=== PATIENT | male | born 1995 | race Caucasian/White ===

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

== ENCOUNTER 2017-01-26 00:01 | Emergency (ER) | payer MEDICAID, OTHER ==
[2017-01-26 04:45] LABS: ABSOLUTE BASOPHILS # (AUTO) 0.1 10^3/uL (0.0-0.2); ABSOLUTE EOSINOPHILS # (AUTO) 0.3 10^3/uL (0.0-0.6); ABSOLUTE LYMPHOCYTES (AUTO) 2.7 10^3/uL (0.5-4.7); ABSOLUTE MONOCYTES (AUTO) 0.9 10^3/uL (0.1-1.4); ABSOLUTE NEUT (AUTO) 5.7 10^3/uL (1.7-8.2); BASOPHILS % (AUTO) 1.1 % (0-2); EOSINOPHILS % (AUTO) 3.3 % (0-6); HEMATOCRIT 45.3 % (37.9-51.0); HEMOGLOBIN 15.3 g/dL (13.5-17.0); HGB HCT DIFFERENCE 0.6; LYMPHOCYTES % (AUTO) 27.9 % (13-45); MEAN CORPUSCULAR HEMOGLOBIN 31.2 pg (27.0-33.4); MEAN CORPUSCULAR HGB CONC 33.7 g/dL (32.0-36.0); MEAN CORPUSCULAR VOLUME 93 fl (80-97); RED BLOOD COUNT 4.89 10^6/uL (4.35-5.55); RED CELL DISTRIBUTION WIDTH 13.3 % (11.5-14.0); SEGMENTED NEUTROPHILS % (AUTO) 58.7 % (42-78); WHITE BLOOD COUNT 9.6 10^3/uL (4.0-10.5)
[2017-01-26 05:00] LABS: ALANINE AMINOTRANSFERASE 31 U/L (10-40); ALBUMIN 4.5 g/dL (3.7-5.6); ALKALINE PHOSPHATASE 82 U/L (65-260); ANION GAP 9 (5-19); ASPARTATE AMINO TRANSFERASE 32 U/L (10-45); BILIRUBIN,DIRECT 0.3 mg/dL (0.0-0.4); BILIRUBIN,TOTAL 0.7 mg/dL (0.2-1.3); BLOOD UREA NITROGEN 15 mg/dL (7-20); CALCIUM 9.4 mg/dL (8.4-10.2); CARBON DIOXIDE 27 mmol/L (22-30); CHLORIDE 104 mmol/L (98-107); CREATININE RESULT 0.99 mg/dL (0.52-1.25); GLUCOSE 90 mg/dL (75-110); POTASSIUM 4.2 mmol/L (3.6-5.0); SODIUM 139.7 mmol/L (137-145); TOTAL PROTEIN 7.5 g/dL (6.3-8.2)
[2017-01-26 05:02] LABS: ALCOHOL < 10 mg/dL (NONE DETECTED)
--- NOTE | 2017-01-26 07:08 | ER Document Report ---
ED General - General Chief Complaint: Psych Problem Stated Complaint: PSYCH EVAL Time Seen by Provider: 01/26/17 03:55 Notes: Patient is a 21-year-old male who presents with complaint of having hallucinations. He says he has daily hallucinations at baseline that consists of seeing for areas of bright lights. He said today he started having hallucinations of dark shadows and very "scary" things coming at him. He is concerned and wants help. He says he has been taking his medications as prescribed. He has no thoughts of suicide. No thoughts of homicide. No other complaints at this time. TRAVEL OUTSIDE OF THE [place] IN LAST 30 DAYS: No - Related Data Allergies/Adverse Reactions: No Known Allergies Allergy (Verified 12/22/16 21:02) Home Medications: Current Home Medications Aripiprazole [Aripiprazole] 1 tab PO BID 01/26/17 [History] Ranitidine HCl 1 tab PO QAM 01/26/17 [History] Past Medical History - Social History Smoking Status: Unknown if Ever Smoked Frequency of alcohol use: None Drug Abuse: None Family History: Other - Mother with multiple sclerosis Patient has suicidal ideation: No Patient has homicidal ideation: No Neurological Medical History: Reports: Hx Seizures Renal/ Medical History: Denies: Hx Peritoneal Dialysis Psychiatric Medical History: Reports: Hx Anxiety, Hx Attention Deficit Hyperactivity Disorder, Hx Bipolar Disorder, Hx Depression, Hx Obsessive Compulsive Disorder, Hx Post Traumatic Stress Disorder Traumatic Medical History: Reports: Hx Fractures Past Surgical History: Reports: Hx Herniorrhaphy - Immunizations Immunizations up to date: Yes Hx Diphtheria, Pertussis, Tetanus Vaccination: Yes Review of Systems - Review of Systems Notes: My Normal Review Basic REVIEW OF SYSTEMS: CONSTITUTIONAL : Denies fever, chills, or sweats. Denies recent illness. EENT: Denies eye, ear, throat, or mouth pain or symptoms. Denies nasal or sinus congestion. RESPIRATORY: Denies cough, cold, or chest congestion. Denies shortness of breath, difficulty breathing, or wheezing. GASTROINTESTINAL: Denies abdominal pain. Denies nausea, vomiting, or diarrhea. Denies constipation. Last BM: MUSCULOSKELETAL: Denies neck or back pain or joint pain or swelling. SKIN: Denies rash or skin lesions. NEUROLOGICAL: Denies altered mental status or loss of consciousness. Denies headache. Denies weakness or paralysis or loss of use of either side. Denies problems with gait or speech. Denies sensory or motor loss. PSYCHIATRIC: Hallucinations ALL OTHER SYSTEMS REVIEWED AND NEGATIVE. Physical Exam - Vital signs Vitals: Temp Pulse Resp BP Pulse Ox 98.4 F 90 18 115/78 96 01/26/17 00:14 01/26/17 00:14 01/26/17 00:14 01/26/17 00:14 01/26/17 00:14 - Notes Notes: General Appearance: Well nourished, alert, cooperative, no acute distress, no obvious discomfort. Well appearing. Vitals: reviewed, See vital signs table. Head: no swelling or tenderness to the head Eyes: PERRL, EOMI, Conjuctiva clear Mouth: No decreasd moisture Neck: Supple, no neck tenderness, No thyromegaly Lungs: No wheezing, No rales, No rhonci, No accessory muscle use, good air exchange bilaterally. Heart: Normal rate, Regular rythm, No murmur, no rub Abdomen: Normal BS, soft, No rigidity, No abdominal tenderness, No guarding, no rebound, no abdominal masses, no organomegaly Extremities: strength 5/5 in all extremities, good pulses in all extremities, no swelling or tenderness in the extremities, no edema. Skin: warm, dry, appropriate color, no rash Neuro: speech clear, oriented x 3, normal affect, responds appropriately to questions. Course - Vital Signs Vital signs: Temp Pulse Resp BP Pulse Ox 98.1 F 85 14 92/52 L 97 01/26/17 06:10 01/26/17 06:10 01/26/17 06:10 01/26/17 06:10 01/26/17 06:10 - Laboratory Result Diagrams: 01/26/17 04:31 01/26/17 04:31 Laboratory results interpreted by me: 01/26/17 01/26/17 04:31 04:31 Plt Count 134 L Salicylates < 1.0 L Acetaminophen < 10 L - Transfer of Care Notes: 01/26/17 07:07 Patient requested to speak with psychiatry about his worsening hallucinations. He is not on involuntary commitment paperwork for it. He is not suicidal. Not homicidal. I do not feel the patient be held against his will. Patient is voluntary at this time speak with psychiatry. Patient is medically stable for psychiatric evaluation. Dictation of this chart was performed using voice recognition software; therefore, there may be some unintended grammatical errors.
[2017-01-26 09:11] LABS: APPEARANCE,URINE CLEAR; BILIRUBIN,URINE NEGATIVE (NEGATIVE); GLUCOSE, URINE NEGATIVE (NEGATIVE); KETONES,URINE NEGATIVE (NEGATIVE); LEUKOCYTE ESTERASE,URINE NEGATIVE (NEGATIVE); NITRITE,URINE NEGATIVE (NEGATIVE); PROTEIN,URINE NEGATIVE (NEGATIVE); URINE SPECIFIC GRAVITY 1.032
[2017-01-26 09:27] LABS: URINE BARBITURATES SCREEN NEGATIVE; URINE METHADONE SCREEN NEGATIVE; URINE OPIATES LOW NEGATIVE; URINE PHENCYCLIDINE SCREEN NEGATIVE
--- NOTE | 2017-01-26 10:22 | ER Document Report ---
ED Psych Disorder / Suicide - General Chief Complaint: Psych Problem Stated Complaint: PSYCH EVAL Time Seen by Provider: 01/26/17 09:35 Mode of Arrival: Ambulatory Information source: Patient, [facility] Records TRAVEL OUTSIDE OF THE [place] IN LAST 30 DAYS: No - HPI Patient complains to provider of: Hallucinating - Feels the hallucinations are worse-more scary in nature Onset: Other - Last few weeks Onset was: Gradual Quality of pain: No pain Severity: Mild Pain Level: Denies Suicide Risk Factors: Hallucinations, Male, No spouse, Other mental health dx. - Schizoaffective disorder, Bipolar Type Normal mood: Yes Associated symptoms: Normal affect, Normal mood, Auditory hallucinations - Reported, Visual hallucinations - Reported Similar symptoms previously: Yes Recently seen / treated by doctor: Yes - ELIZABETH Fu, [facility] Notes: Patient reported his hallucinations were more vivid last evening, tending to scare him. He denied having a conversation with his Provider, Ena Schmidt, regarding his symptoms. Patient reported the abilify he is taking helps with decreasing the frequency of the hallucinations but not the intensity. He also reported he has an appointment next week with Ena and the Patient is supposed to start the IM Abilify shot. Patient stated he is living with a roommate but his roommate was not home so he was unable to him for support last night and he does not feel he can call his parents for support. Patient was provided with education regarding utilizing community resources for support including mobile crisis rather than the ED as his first option. Also provided education as to the importance of talking with his provider about his frustration regarding his Provider not listening to his complaints or taking him seriously when he comes for appointments. Had patient practice how he could talk with his provider before ending the evaluation. Patient was alert and oriented to person, place, time, and situation. Mood was euthymic with congruent affect. He denied suicidal / homicidal ideation, intent , or plan. He endorse auditory and visual hallucinations intermittently but not during the evaluations. No delusions were noted. Thought processes were linear and organized. Conversational speech was within normal limits for rate, tone, and prosody. Intellectual abilities were estimated within the low average range. Recent and remote memory appeared intact. Attention and concentration was within normal limits and there was no evidence he was responding to internal stimuli as evidenced by good eye contact, linear and rational thought processes, and attention to task. Insight, attention, and impulse control remain poor. 1. [id number] (F25.0) Schizoaffective Disorder, Bipolar Type Impression / Plan: Patient is here is voluntarily and denies suicidal / homicidal ideation, intent, or plan. He reports experiencing an increase in the intensity of his hallucinations last evening but a decrease in the frequency all together. He was reminded to utilize community supports for periods like this and to have a conversation with his provider about his symptoms. Encouraged him to focus on the positive regarding the decrease in frequency of symptoms and the effectiveness of his medications. Utilized role play regarding having a conversation with his provider about his frustrations with feeling as though his Provider does not listen to his complaints regarding mental healths symptoms. Patient was cooperative and appeared to understand the need to utilize mobile crisis or other community supports as a first line of defense when experiencing his symptoms. He reportedly is compliant with his current medication regiment. Patient is scheduled with his provider next week ([facility]). Recommend discharge for follow up with provider. ED Physician in agreement with recommendations and disposition. - Related Data Allergies/Adverse Reactions: No Known Allergies Allergy (Verified 12/22/16 21:02) Home Medications: Current Home Medications Aripiprazole [Aripiprazole] 1 tab PO BID 01/26/17 [History] Ranitidine HCl 1 tab PO QAM 01/26/17 [History] Past Medical History - Social History Smoking Status: Unknown if Ever Smoked Chew tobacco use (# tins/day): No Frequency of alcohol use: None Drug Abuse: None Family History: Other - Mother with multiple sclerosis Patient has suicidal ideation: No Patient has homicidal ideation: No Neurological Medical History: Reports: Hx Seizures Renal/ Medical History: Denies: Hx Peritoneal Dialysis Psychiatric Medical History: Reports: Hx Anxiety, Hx Attention Deficit Hyperactivity Disorder, Hx Bipolar Disorder, Hx Depression, Hx Obsessive Compulsive Disorder, Hx Post Traumatic Stress Disorder Traumatic Medical History: Reports: Hx Fractures Past Surgical History: Reports: Hx Herniorrhaphy - Immunizations Immunizations up to date: Yes Hx Diphtheria, Pertussis, Tetanus Vaccination: Yes Physical Exam - Vital signs Vitals: Temp Pulse Resp BP Pulse Ox 98.4 F 90 18 115/78 96 01/26/17 00:14 01/26/17 00:14 01/26/17 00:14 01/26/17 00:14 01/26/17 00:14 Course - Vital Signs Vital signs: Temp Pulse Resp BP Pulse Ox 98.1 F 85 14 92/52 L 97 01/26/17 06:10 01/26/17 06:10 01/26/17 06:10 01/26/17 06:10 01/26/17 06:10 - Laboratory Result Diagrams: 01/26/17 04:31 01/26/17 04:31 Laboratory results interpreted by me: 01/26/17 01/26/17 01/26/17 04:31 04:31 09:00 Plt Count 134 L Urine Urobilinogen 4.0 H Salicylates < 1.0 L Acetaminophen < 10 L Discharge - Discharge Clinical Impression: Hallucinations Schizoaffective disorder Qualifiers: Schizoaffective disorder type: bipolar Qualified Code(s): F25.0 - Schizoaffective disorder, bipolar type Condition: Stable Disposition: HOME, SELF-CARE Additional Instructions: Please follow up with Ena Schmidt at [facility] for medication appointment. Please use community based resources such as mobile crisis when feeling upset or distressed.
--- NOTE | 2017-01-26 10:33 | ER Document Report ---
Doctor's Note Notes: 01/26/17 10:32 As the rounding physician for our psychiatric patients, I have reviewed the chart, vitals, lab work. Patient has been examined and noted to be stable at this time Mental health evaluation and plan noted. Patient denies SI/HI and is comfortable with plan for discharge and continued outpatient followup.
[2017-01-26 10:54] VITALS: BP 114/46
--- NOTE | 2017-01-28 09:31 | EKG REPORT ---
SEVERITY:- NORMAL ECG - SINUS RHYTHM : Confirmed by: Anais Pastor 28-Jan-2017 09:31:11
== END 2017-01-26 10:50 | disposition home or self-care (01) ==
LOC: ER 00:01
DX: F25.0 Schizoaffective disorder, bipolar type (principal); Z79.899 Other long term (current) drug therapy
CPT/HCPCS: 36415; 80053; 80307; 81001; 85025; 93005; 93010; 99284

== ENCOUNTER 2017-02-05 22:42 | Emergency (ER) | payer MEDICAID, OTHER ==
[2017-02-06 01:04] LABS: ABSOLUTE BASOPHILS # (AUTO) 0.1 10^3/uL (0.0-0.2); ABSOLUTE EOSINOPHILS # (AUTO) 0.2 10^3/uL (0.0-0.6); ABSOLUTE LYMPHOCYTES (AUTO) 2.3 10^3/uL (0.5-4.7); ABSOLUTE MONOCYTES (AUTO) 0.9 10^3/uL (0.1-1.4); ABSOLUTE NEUT (AUTO) 6.9 10^3/uL (1.7-8.2); BASOPHILS % (AUTO) 0.6 % (0-2); EOSINOPHILS % (AUTO) 1.7 % (0-6); HEMATOCRIT 47.8 % (37.9-51.0); HEMOGLOBIN 15.7 g/dL (13.5-17.0); HGB HCT DIFFERENCE -0.7; LYMPHOCYTES % (AUTO) 21.9 % (13-45); MEAN CORPUSCULAR HEMOGLOBIN 30.6 pg (27.0-33.4); MEAN CORPUSCULAR HGB CONC 32.9 g/dL (32.0-36.0); MEAN CORPUSCULAR VOLUME 93 fl (80-97); MONOCYTES % (AUTO) 8.5 % (3-13); RED BLOOD COUNT 5.13 10^6/uL (4.35-5.55); RED CELL DISTRIBUTION WIDTH 13.6 % (11.5-14.0); SEGMENTED NEUTROPHILS % (AUTO) 67.3 % (42-78); WHITE BLOOD COUNT 10.3 10^3/uL (4.0-10.5)
[2017-02-06 01:11] LABS: ALANINE AMINOTRANSFERASE 26 U/L (10-40); ALBUMIN 4.9 g/dL (3.7-5.6); ALKALINE PHOSPHATASE 75 U/L (65-260); ANION GAP 14 (5-19); ASPARTATE AMINO TRANSFERASE 20 U/L (10-45); BILIRUBIN,DIRECT 0.3 mg/dL (0.0-0.4); BILIRUBIN,TOTAL 0.7 mg/dL (0.2-1.3); BLOOD UREA NITROGEN 11 mg/dL (7-20); CARBON DIOXIDE 25 mmol/L (22-30); CHLORIDE 103 mmol/L (98-107); CREATININE RESULT 0.99 mg/dL (0.52-1.25); GLUCOSE 92 mg/dL (75-110); LIPASE 45.9 U/L (23-300); POTASSIUM 4.2 mmol/L (3.6-5.0); SODIUM 141.8 mmol/L (137-145); TOTAL PROTEIN 8.2 g/dL (6.3-8.2)
[2017-02-06 01:28] LABS: APPEARANCE,URINE CLEAR; BILIRUBIN,URINE NEGATIVE (NEGATIVE); GLUCOSE, URINE NEGATIVE (NEGATIVE); KETONES,URINE NEGATIVE (NEGATIVE); LEUKOCYTE ESTERASE,URINE NEGATIVE (NEGATIVE); NITRITE,URINE NEGATIVE (NEGATIVE); PROTEIN,URINE NEGATIVE (NEGATIVE); URINE SPECIFIC GRAVITY 1.006; UROBILINOGEN,URINE NEGATIVE mg/dL (<2.0)
--- NOTE | 2017-02-06 01:53 | ER Document Report ---
ED General - General Chief Complaint: Abdominal Pain Stated Complaint: Abdominal Pain Time Seen by Provider: 02/06/17 00:42 Notes: Patient is a 21-year-old male with multiple psychiatric diagnoses who frequently comes to the emergency department for multitude of complaints who presents today complaining of left knee pain, back pain, abdominal pain, lightheadedness, dizziness, nausea, and near syncope. Patient states he received his first dose of Abilify today IM and since that time he has had abdominal cramping with associated lightheadedness and nausea. Nothing improves or worsens his symptoms. Patient states that he has chronic left low back pain is unchanged today. Denies any bowel or bladder incontinence. No urinary retention. Denies any difficulty with ambulation. He also notes that he has had chronic left knee pain unchanged today for the past 3 weeks ever since he was walking on it and felt it twist. States tonight he was getting out of the shower and also had an episode of near syncope which she became lightheaded and fell to the ground. He did not hit his head or neck. She did not actually injure his left knee or back during that episode. TRAVEL OUTSIDE OF THE [place] IN LAST 30 DAYS: No - Related Data Allergies/Adverse Reactions: No Known Allergies Allergy (Verified 12/22/16 21:02) Past Medical History - General Information source: Patient - Social History Smoking Status: Unknown if Ever Smoked Frequency of alcohol use: None Drug Abuse: None Lives with: Family Family History: Reviewed & Not Pertinent, Other - Mother with multiple sclerosis Neurological Medical History: Reports: Hx Seizures Renal/ Medical History: Denies: Hx Peritoneal Dialysis Psychiatric Medical History: Reports: Hx Anxiety, Hx Attention Deficit Hyperactivity Disorder, Hx Bipolar Disorder, Hx Depression, Hx Obsessive Compulsive Disorder, Hx Post Traumatic Stress Disorder, Hx Schizophrenia Traumatic Medical History: Reports: Hx Fractures Past Surgical History: Reports: Hx Herniorrhaphy - Immunizations Immunizations up to date: Yes Hx Diphtheria, Pertussis, Tetanus Vaccination: Yes Review of Systems - Review of Systems Notes: Constitutional: Negative for fever. HENT: Negative for sore throat. Eyes: Negative for visual changes. Cardiovascular: Negative for chest pain. Respiratory: Negative for shortness of breath. Gastrointestinal: Positive for abdominal pain and nausea Genitourinary: Negative for dysuria. Musculoskeletal: Positive for back pain. Skin: Negative for rash. Neurological: Negative for headaches, weakness or numbness. 10 point ROS negative except as marked above and in HPI. Physical Exam - Vital signs Vitals: Temp Pulse Resp BP Pulse Ox 98.5 F 110 H 18 127/81 H 97 02/05/17 22:54 02/05/17 22:54 02/05/17 22:54 02/05/17 22:54 02/05/17 22:54 Interpretation: Tachycardic Notes: PHYSICAL EXAMINATION: GENERAL: Well-appearing, well-nourished and in no acute distress. HEAD: Atraumatic, normocephalic. EYES: Pupils equal round and reactive to light, extraocular movements intact, sclera anicteric, conjunctiva are normal. ENT: nares patent, oropharynx clear without exudates. Moist mucous membranes. NECK: Normal range of motion, supple without lymphadenopathy LUNGS: Breath sounds clear to auscultation bilaterally and equal. No wheezes rales or rhonchi. HEART: Regular rate and rhythm without murmurs ABDOMEN: Soft, nontender, normoactive bowel sounds. No guarding, no rebound. No masses appreciated. EXTREMITIES: Normal range of motion, no pitting or edema. No cyanosis. Back: No midline spinal tenderness, step-offs or deformities NEUROLOGICAL: 5 out of 5 strength both distally and proximally bilateral lower extremities. 2+ patellar reflexes bilaterally. No clonus. Sensation grossly intact in the bilateral lower extremities. Patient is able to ambulate without difficulty. PSYCH: Normal mood, normal affect. SKIN: Warm, Dry, normal turgor, no rashes or lesions noted. Course - Re-evaluation Re-evalutation: 02/06/17 01:52 Patient presents with multiple vague complaints that did not appear to be concerning for any acute life-threatening pathology. Vitals are within normal limits at triage and at time of discharge. Physical examination is unremarkable. Patient has tolerated oral intake without difficulty. Patient was not noted to be in distress at any point during their ER visit. At this time, based on the reassuring evaluation, I do not suspect an acute FL, pulmonary embolus, aortic dissection, acute intra-abdominal pathology, stroke, or sepsis.Will discharge with return precautions and follow-up recommendations. Verbal discharge instructions given a the bedside and opportunity for questions given. Medication warnings reviewed. Patient is in agreement with this plan and has verbalized understanding of return precautions and the need for primary care follow-up in the next 24-72 hours. - Vital Signs Vital signs: Temp Pulse Resp BP Pulse Ox 98.3 F 124 H 18 105/76 95 02/06/17 00:39 02/06/17 02:15 02/05/17 22:54 02/06/17 02:00 02/06/17 02:15 - Laboratory Result Diagrams: 02/06/17 00:47 02/06/17 00:47 Laboratory results interpreted by me: 02/06/17 00:47 Plt Count 134 L Discharge - Discharge Clinical Impression: Chronic back pain Qualifiers: Back pain location: low back pain Back pain laterality: left Sciatica presence : without sciatica Qualified Code(s): M54.5 - Low back pain Abdominal pain Qualifiers: Abdominal location: generalized Qualified Code(s): R10.84 - Generalized abdominal pain Condition: Good Disposition: HOME, SELF-CARE Additional Instructions: Please return to the emergency room immediately if you experience any concerning symptoms including high fevers, severe headache, chest pain, difficulty breathing, abdominal pain, slurred speech, numbness or weakness in your arms or legs, or any other symptom that concerns you.
[2017-02-06 02:23] VITALS: BP 105/76
== END 2017-02-06 02:30 | disposition home or self-care (01) ==
LOC: ER 22:42
DX: R10.84 Generalized abdominal pain (principal); G89.29 Other chronic pain; M54.5 Low back pain; R55 Syncope and collapse; M25.562 Pain in left knee; R11.0 Nausea; R00.0 Tachycardia, unspecified
CPT/HCPCS: 36415; 80053; 81001; 83690; 85025; 99284

== ENCOUNTER 2017-02-23 20:04 | Emergency (ER) | payer MEDICAID, OTHER ==
[2017-02-23 20:20] VITALS: BP 122/77
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
--- NOTE | 2017-02-23 21:45 | RADIOLOGY REPORT (SQ) ---
EXAM DESCRIPTION: RIBS RIGHT W/PA CHEST COMPLETED DATE/TIME: 02/23/2017 9:31 pm REASON FOR STUDY: right anterolateral rib pain near rib (7-10) COMPARISON: None. TECHNIQUE: Frontal view of the chest and additional views of the right ribs acquired. NUMBER OF VIEWS: Three view. LIMITATIONS: None. FINDINGS: FRONTAL CXR: No pneumothorax. No pleural effusion. No atelectasis or infiltrates. RIBS: No displaced rib fractures. No lytic or blastic bony lesions. OTHER: No other significant finding. IMPRESSION: NO PNEUMOTHORAX. NO DISPLACED RIB FRACTURES. COMMENT: SITE OF TRAUMA/COMPLAINT MARKED/STAMP COMPLETED: NO. TECHNICAL DOCUMENTATION: JOB ID: [id number] [employer]- All Rights Reserved
== END 2017-02-23 22:02 | disposition home or self-care (01) ==
LOC: ER 20:04
DX: S20.211A Contusion of right front wall of thorax, initial encounter (principal); W50.0XXA Accidental hit or strike by another person, initial encounter; Y93.82 Activity, spectator at an event; F41.9 Anxiety disorder, unspecified; F31.9 Bipolar disorder, unspecified; F20.9 Schizophrenia, unspecified; F17.200 Nicotine dependence, unspecified, uncomplicated; Z79.899 Other long term (current) drug therapy
CPT/HCPCS: 99283

== ENCOUNTER 2017-03-16 21:19 | Emergency (ER) | payer MEDICAID ==
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
[2017-03-16] MEDS ORDERED: BENZTROPINE MESYLATE 1 MG TABLET PO ONE (22:02)
[2017-03-16] MEDS ORDERED: ARIPIPRAZOLE 5 MG TABLET PO ONE (22:02)
[2017-03-16 22:04] LABS: ABSOLUTE BASOPHILS # (AUTO) 0.1 10^3/uL (0.0-0.2); ABSOLUTE EOSINOPHILS # (AUTO) 0.1 10^3/uL (0.0-0.6); ABSOLUTE LYMPHOCYTES (AUTO) 1.8 10^3/uL (0.5-4.7); ABSOLUTE MONOCYTES (AUTO) 0.7 10^3/uL (0.1-1.4); ABSOLUTE NEUT (AUTO) 5.6 10^3/uL (1.7-8.2); BASOPHILS % (AUTO) 0.6 % (0-2); EOSINOPHILS % (AUTO) 1.2 % (0-6); HEMATOCRIT 46.3 % (37.9-51.0); HGB HCT DIFFERENCE 1.7; LYMPHOCYTES % (AUTO) 21.8 % (13-45); MEAN CORPUSCULAR HEMOGLOBIN 31.7 pg (27.0-33.4); MEAN CORPUSCULAR HGB CONC 34.5 g/dL (32.0-36.0); MEAN CORPUSCULAR VOLUME 92 fl (80-97); MONOCYTES % (AUTO) 8.7 % (3-13); RED BLOOD COUNT 5.05 10^6/uL (4.35-5.55); RED CELL DISTRIBUTION WIDTH 13.1 % (11.5-14.0); SEGMENTED NEUTROPHILS % (AUTO) 67.7 % (42-78); WHITE BLOOD COUNT 8.3 10^3/uL (4.0-10.5)
[2017-03-16 22:04] LABS: APPEARANCE,URINE CLEAR; BILIRUBIN,URINE NEGATIVE (NEGATIVE); GLUCOSE, URINE NEGATIVE (NEGATIVE); KETONES,URINE NEGATIVE (NEGATIVE); LEUKOCYTE ESTERASE,URINE NEGATIVE (NEGATIVE); NITRITE,URINE NEGATIVE (NEGATIVE); PROTEIN,URINE NEGATIVE (NEGATIVE); URINE SPECIFIC GRAVITY 1.015; UROBILINOGEN,URINE NEGATIVE mg/dL (<2.0)
[2017-03-16 22:18] LABS: ALANINE AMINOTRANSFERASE 33 U/L (10-40); ALCOHOL < 10 mg/dL (NONE DETECTED); ALKALINE PHOSPHATASE 76 U/L (65-260); ANION GAP 15 (5-19); ASPARTATE AMINO TRANSFERASE 21 U/L (10-45); BILIRUBIN,DIRECT 0.3 mg/dL (0.0-0.4); BILIRUBIN,TOTAL 0.7 mg/dL (0.2-1.3); BLOOD UREA NITROGEN 9 mg/dL (7-20); CALCIUM 8.9 mg/dL (8.4-10.2); CARBON DIOXIDE 25 mmol/L (22-30); CHLORIDE 101 mmol/L (98-107); CREATININE RESULT 0.91 mg/dL (0.52-1.25); GLUCOSE 74 mg/dL (75-110); POTASSIUM 3.8 mmol/L (3.6-5.0); SODIUM 140.6 mmol/L (137-145); TOTAL PROTEIN 7.7 g/dL (6.3-8.2)
[2017-03-16 22:18] LABS: URINE BARBITURATES SCREEN NEGATIVE; URINE METHADONE SCREEN NEGATIVE; URINE OPIATES LOW NEGATIVE; URINE PHENCYCLIDINE SCREEN NEGATIVE
[2017-03-16 23:16] VITALS: BP 107/72
--- NOTE | 2017-03-17 11:12 | EKG REPORT ---
SEVERITY:- NORMAL ECG - SINUS RHYTHM : Confirmed by: Christine Miles MD 17-Mar-2017 11:11:47
== END 2017-03-16 23:17 | disposition home or self-care (01) ==
LOC: ER 21:19
DX: R45.851 Suicidal ideations (principal); Z91.14 Patient's other noncompliance with medication regimen; F95.2 Tourette's disorder; F42.9 Obsessive-compulsive disorder, unspecified; F43.10 Post-traumatic stress disorder, unspecified; Z79.899 Other long term (current) drug therapy; F17.210 Nicotine dependence, cigarettes, uncomplicated
CPT/HCPCS: 93005; 99284; 36415; 80307 ×4; 85025; 80053; 81001; 93010; J3490 ×2

== ENCOUNTER 2017-03-17 21:28 | Emergency (ER) | payer MEDICAID ==
[2017-03-17] MEDS ORDERED: ACETAMINOPHEN 325 MG TABLET PO ONE (22:48)
--- NOTE | 2017-03-17 22:51 | ER Document Report ---
ED Extremity Problem, Lower - General Chief Complaint: Toe Injury Stated Complaint: TOE NUMBNESS Time Seen by Provider: 03/17/17 22:48 Mode of Arrival: Wheelchair Information source: Patient Notes: 22-year-old male presents to ED for pain in his second toe on the right foot. States he does not remember any injury but it started hurting this evening and it is palpable. TRAVEL OUTSIDE OF THE [place] IN LAST 30 DAYS: No - HPI Patient complains to provider of: Pain, Swelling Location: 2nd Toe Occurred: This evening Where: Outdoors, Public place Onset/Duration: Gradual Quality of pain: Other Context: Barefoot Recent injury: Possibly Associated symptoms: Painful ambulation Exacerbated by: Movement, Walking Relieved by: Nothing - Related Data Allergies/Adverse Reactions: No Known Allergies Allergy (Verified 03/17/17 22:54) Past Medical History - General Information source: Patient - Social History Smoking Status: Current Every Day Smoker Cigarette use (# per day): Yes - 3-4 Cigarettes a day Chew tobacco use (# tins/day): No Smoking Education Provided: Yes - 1 minute Frequency of alcohol use: None Drug Abuse: None Lives with: Family Family History: Other - Mother with multiple sclerosis Neurological Medical History: Reports: Hx Seizures Renal/ Medical History: Denies: Hx Peritoneal Dialysis Psychiatric Medical History: Reports: Hx Anxiety, Hx Attention Deficit Hyperactivity Disorder, Hx Bipolar Disorder, Hx Depression, Hx Obsessive Compulsive Disorder, Hx Post Traumatic Stress Disorder, Hx Schizophrenia Traumatic Medical History: Reports: Hx Fractures Past Surgical History: Reports: Hx Herniorrhaphy - Immunizations Immunizations up to date: Yes Hx Diphtheria, Pertussis, Tetanus Vaccination: Yes Review of Systems - Review of Systems Constitutional: No symptoms reported EENT: No symptoms reported Cardiovascular: No symptoms reported Respiratory: No symptoms reported Gastrointestinal: No symptoms reported Genitourinary: No symptoms reported Male Genitourinary: No symptoms reported Musculoskeletal: Other - bruised swollen 2nd toe on right foot Skin: Change in color - eccymosis to right 2nd toe Hematologic/Lymphatic: No symptoms reported Neurological/Psychological: No symptoms reported Physical Exam - Vital signs Vitals: Temp Pulse Resp BP Pulse Ox 97.9 F 90 18 121/82 97 03/17/17 22:44 03/17/17 22:44 03/17/17 22:44 03/17/17 22:44 03/17/17 22:44 Interpretation: Normal - General General appearance: Appears well, Alert - HEENT Head: Normocephalic, Atraumatic Eyes: Normal Pupils: PERRL - Respiratory Respiratory status: No respiratory distress Chest status: Nontender Breath sounds: Normal Chest palpation: Normal - Cardiovascular Rhythm: Regular Heart sounds: Normal auscultation Murmur: No - Abdominal Inspection: Normal Distension: No distension Bowel sounds: Normal Tenderness: Nontender Organomegaly: No organomegaly - Back Back: Normal, Nontender - Extremities General upper extremity: Normal inspection, Nontender, Normal color, Normal ROM , Normal temperature General lower extremity: Normal inspection, Normal ROM, Normal temperature, Normal weight bearing. No: Jennifer's sign Foot: Tender - 2nd right toe, Ecchymosis - 2nd right toe - Neurological Neuro grossly intact: Yes Cognition: Normal Orientation: AAOx4 [place] Coma Scale Eye Opening: Spontaneous [place] Coma Scale Verbal: Oriented Srinivasan Coma Scale Motor: Obeys Commands Srinivasan Coma Scale Total: 15 Speech: Normal Motor strength normal: LUE, RUE, LLE, RLE Sensory: Normal - Psychological Associated symptoms: Normal affect, Normal mood - Skin Skin Temperature: Warm Skin Moisture: Dry Skin Color: Normal Course - Vital Signs Vital signs: Temp Pulse Resp BP Pulse Ox 97.7 F 87 18 113/86 H 199 H 03/18/17 00:32 03/18/17 00:32 03/18/17 00:32 03/18/17 00:32 03/18/17 00:32 - Diagnostic Test Radiology reviewed: Image reviewed, Reports reviewed Procedures - Immobilization Right Toe 2nd digit Immobilizer type: Post-op shoe Performed by: FLOR Post-Proc Neuro Vasc Exam: Normal Alignment checked and good: Yes Discharge - Discharge Clinical Impression: right 2nd toe avulsion fracture Condition: Stable Disposition: HOME, SELF-CARE Additional Instructions: Fractured Toe You have fractured your toe. Although this fracture doesn't need a cast or splint, emergency evaluation was needed to assess the straightness of the bones and joints. Reduction ("setting") is necessary for toe fractures which are crooked or twisted. A toe fracture will heal in about three weeks. Usually, the fractured toe is taped to the next toe. The second toe acts as a moving splint to protect the broken one. Ice and elevation help during the first 48 hours. You may need crutches at first if walking is painful. When you begin walking, be careful NOT to do things that hurt. If weight bearing is not comfortable within a few days, you may require a special shoe, walking boot, or cast. Call the doctor or return at once if severe swelling, severe pain, or numbness develop in the toe, or if you suspect you may have re-injured it. ICE & ELEVATION: Apply ice packs frequently against the painful area. Many different schedules are recommended, such as "20 minutes on, 20 minutes off" or "one hour ice, two hours rest." If you need to work, you may need to go longer between ice treatments. You should plan to have the area ice packed AT LEAST one- fourth of the time. The ice should be applied over the wrap, tape, or splint, or over a layer of cloth -- not directly against the skin. Some ice bags have a built-in cloth and can be put directly on the skin. Your injured part should be elevated as much as possible over the next 48 hours. Try to keep the injury above the level of the heart. Avoid use of the injured area. Elevation and rest will decrease the swelling. USE OF [id number] IBUPROFEN: Ibuprofen (Advil, Nuprin, Medipren, Motrin IB) is a medication for fever and pain control. In addition, it has anti- inflammatory effects which may be beneficial, especially in the treatment of injuries. It's best to take ibuprofen with food. Persons with ulcer disease or allergy to aspirin should notify their physician of this before taking ibuprofen. Ibuprofen can be given every four to six hours, for a total of four doses daily. Age Pain or fever dose Antiinflammatory dose 6-8 yr 200 mg (1 tab) 200 mg (1 tab) 9-11 yr 200 mg (1 tab) 200-400 mg (1-2 tab) 11-14 yr 200-400 mg (1-2 tab) 400 mg (2 tab) 15-adult 400 mg (2 tab) 600 mg (3 tab) Post-Op Shoe You are to use a "post-op shoe," sometimes also called a "bunnion shoe." This shoe helps protect minor fractures, sprains, and other injuries of the toes or foot. You may remove the shoe for bathing. Walk carefully. If you're feeling pain, put less weight on the foot, take smaller steps, or use a cane. If you have a new injury, you may need to use crutches for the first couple of days. If pain still prevents walking after a few days, contact the doctor. If there's unexpected pain in your foot, if blisters or sore spots develop , or if the shoe is physically coming apart, return at once. Remember that you' re welcome to come in at any time to have the fit of the shoe checked and adjusted. FOLLOW-UP CARE: If you have been referred to a physician for follow-up care, call the physician s office for an appointment as you were instructed or within the next two days. If you experience worsening or a significant change in your symptoms, notify the physician immediately or return to the Emergency Department at any time for re-evaluation. Forms: Smoking Cessation Education Referrals: CECILE GUALLPA MD [ACTIVE STAFF] - Follow up as needed
--- NOTE | 2017-03-17 23:41 | RADIOLOGY REPORT (SQ) ---
EXAM DESCRIPTION: FOOT RIGHT COMPLETE COMPLETED DATE/TIME: 03/17/2017 11:17 pm REASON FOR STUDY: pain and bruising 2nd toe COMPARISON: None. NUMBER OF VIEWS: Three views. TECHNIQUE: AP, lateral and oblique radiographic images acquired of the right foot. LIMITATIONS: None. FINDINGS: MINERALIZATION: Normal. BONES: 2 mm minimally displaced intra-articular avulsion fracture on the lateral aspect of the DIP a rticular surface of the distal phalanx of the right 2nd digit. No dislocation. No worrisome bone les ions. JOINTS: No effusions. SOFT TISSUES: No soft tissue swelling. No foreign body. OTHER: No other significant finding. IMPRESSION: 2 mm minimally displaced intra-articular avulsion fracture on the lateral aspect of the DIP articular surface of the distal phalanx of the right 2nd digit. TECHNICAL DOCUMENTATION: JOB ID: [id number] [employer]- All Rights Reserved
[2017-03-18 00:34] VITALS: BP 113/86
== END 2017-03-18 00:33 | disposition home or self-care (01) ==
LOC: ER 21:28
DX: S92.531A Displaced fracture of distal phalanx of right lesser toe(s), initial encounter for closed fracture (principal); X58.XXXA Exposure to other specified factors, initial encounter; F17.210 Nicotine dependence, cigarettes, uncomplicated; Z71.6 Tobacco abuse counseling
CPT/HCPCS: 99283; 73630; J3490

== ENCOUNTER 2017-04-02 20:35 | Emergency (ER) | payer MEDICAID ==
[2017-04-02] MEDS ORDERED: IBUPROFEN 800 MG TABLET PO ONE (21:01)
--- NOTE | 2017-04-02 21:02 | ER Document Report ---
HPI - HPI Patient complains to provider of: rib pain Onset: This evening Onset/Duration: Sudden Quality of pain: Achy Pain Level: 5 Context: Patient states that he was playing around with his girlfriend and rolled off of the bed and fell hurting his ribs. Patient states that he might have accidentally been kicked in the ribs as well he is not really certain. Patient complains of bilateral rib tenderness. Patient denies any shortness of breath or dyspnea. Patient states he has had a history of rib injuries in the past. Associated Symptoms: Chest pain - rib pain. denies: Nonproductive cough, Productive cough, Shortness of breath Exacerbated by: Movement, Deep breathing Relieved by: Denies Similar symptoms previously: Yes Recently seen / treated by doctor: No - ROS ROS below otherwise negative: Yes Systems Reviewed and Negative: Yes All other systems reviewed and negative - CONSTITUTIONAL Constitutional: DENIES: Fever - EENT EENT: DENIES: Sore Throat - CARDIOVASCULAR Cardiovascular: REPORTS: Chest pain - RESPIRATORY Respiratory: DENIES: Trouble Breathing, Coughing - GASTROINTESTINAL Gastrointestinal: DENIES: Abdominal Pain, Nausea, Patient vomiting - MUSCULOSKELETAL Musculoskeletal: DENIES: Extremity pain, Back Pain, Neck Pain - DERM Skin Color: Normal Skin Problems: None Past Medical History - General Information source: Patient - Social History Smoking Status: Current Every Day Smoker Frequency of alcohol use: None Drug Abuse: None Occupation: None Family History: Other - Mother with multiple sclerosis Patient has suicidal ideation: No Patient has homicidal ideation: No Neurological Medical History: Reports: Hx Seizures Renal/ Medical History: Denies: Hx Peritoneal Dialysis Psychiatric Medical History: Reports: Hx Anxiety, Hx Attention Deficit Hyperactivity Disorder, Hx Bipolar Disorder, Hx Depression, Hx Obsessive Compulsive Disorder, Hx Post Traumatic Stress Disorder, Hx Schizophrenia Traumatic Medical History: Reports: Hx Fractures Past Surgical History: Reports: Hx Herniorrhaphy - Immunizations Immunizations up to date: Yes Hx Diphtheria, Pertussis, Tetanus Vaccination: Yes Vertical Provider Document - CONSTITUTIONAL Agree With Documented VS: Yes Exam Limitations: No Limitations General Appearance: WD/WN, No Apparent Distress - INFECTION CONTROL TRAVEL OUTSIDE OF THE [place] IN LAST 30 DAYS: No - HEENT HEENT: Atraumatic, Normocephalic - NECK Neck: Normal Inspection, Supple - RESPIRATORY Respiratory: Breath Sounds Normal, No Respiratory Distress. negative: Chest Non -Tender - pt with bilateral lower costal rib tenderness, no crepitus, no subcutaneous emphysema good air movement bilaterally O2 Sat by Pulse Oximetry: 97 - CARDIOVASCULAR Cardiovascular: Regular Rate, Regular Rhythm, No Murmur - GI/ABDOMEN Gastrointestinal: Abdomen Soft, Abdomen Non-Tender, No Organomegaly - BACK Back: Normal Inspection. negative: CVA Tenderness-Right, CVA Tenderness-Left - MUSCULOSKELETAL/EXTREMETIES Musculoskeletal/Extremeties: MAEW, FROM - NEURO Level of Consciousness: Awake, Alert, Appropriate Motor/Sensory: No Motor Deficit - DERM Integumentary: Warm, Dry Course - Re-evaluation Re-evalutation: 04/02/17 21:39 Patient has been to the emergency department multiple times in the past for painful conditions. The patient has atypical chest pain as the patient's chest pain is not suggestive of pulmonary embolus, cardiac ischemia, aortic dissection , or other serious etiology. Given the extremely low risk of these diagnoses for the test in evaluation for these possibilities does not appear to be indicated at this time. Patient has been instructed to return if the symptoms worsen or change in any way. - Vital Signs Vital signs: Temp Pulse Resp BP Pulse Ox 98.7 F 93 117/76 97 04/02/17 20:39 04/02/17 20:39 04/02/17 20:39 04/02/17 20:39 - Diagnostic Test Radiology reviewed: Reports reviewed Discharge - Discharge Clinical Impression: Rib pain Condition: Stable Disposition: HOME, SELF-CARE Instructions: Chest Wall Pain ([facility]), Anti-Inflammatory Medication ([facility]) Additional Instructions: Return immediately for any new or worsening symptoms Followup with your primary care provider, call tomorrow to make a followup appointment You may use topical lidocaine patches [id number] as directed Prescriptions: Naproxen [Naprosyn 250 Nmg Tablet] 1 tab PO BID #14 tablet Referrals: [facility] [Provider Group] - Follow up as needed
--- NOTE | 2017-04-02 21:18 | RADIOLOGY REPORT (SQ) ---
EXAM DESCRIPTION: CHEST PA/LAT COMPLETED DATE/TIME: 04/02/2017 9:08 pm REASON FOR STUDY: fall, rib pain COMPARISON: None. EXAM PARAMETERS: NUMBER OF VIEWS: two views TECHNIQUE: Digital Frontal and Lateral radiographic views of the chest acquired. RADIATION DOSE: NA LIMITATIONS: none FINDINGS: LUNGS AND PLEURA: No opacities, masses or pneumothorax. No pleural effusion. MEDIASTINUM AND HILAR STRUCTURES: No masses or contour abnormalities. HEART AND VASCULAR STRUCTURES: Heart normal size. No evidence for failure. BONES: No acute findings. HARDWARE: None in the chest. OTHER: No other significant finding. IMPRESSION: NO SIGNIFICANT RADIOGRAPHIC FINDING IN THE CHEST. TECHNICAL DOCUMENTATION: JOB ID: [id number] [employer]- All Rights Reserved
[2017-04-02 21:46] VITALS: BP 118/74
== END 2017-04-02 21:44 | disposition home or self-care (01) ==
LOC: ER 20:35
DX: R07.81 Pleurodynia (principal); F17.200 Nicotine dependence, unspecified, uncomplicated
CPT/HCPCS: 99283; 71020; J3490

== ENCOUNTER 2017-04-27 20:03 | Emergency (ER) | payer MEDICARE, MEDICAID ==
--- NOTE | 2017-04-27 20:40 | ER Document Report ---
ED Psych Disorder / Suicide - General Mode of Arrival: Ambulatory Information source: Patient, Relative - sister TRAVEL OUTSIDE OF THE [place] IN LAST 30 DAYS: No - HPI Patient complains to provider of: Suicidal ideation <KATHY THIBODEAUX - Last Filed: 04/27/17 23:23> <ROYERPAULDERIK - Last Filed: 04/27/17 23:56> - General Chief Complaint: Psych Problem Stated Complaint: PSYCH EVAL Time Seen by Provider: 04/27/17 20:30 - HPI Notes: Patient is a 22 year old male presenting to the emergency department for suicidal ideation and homicidal ideation. Patient has been evaluated for this multiple times in the past this department. Patient states that his suicidal homicidal thoughts are worse than ever. Patient does not know why his thoughts and depression is worse and is unsure of any recent event that could trigger such. Patient's sister is at the bedside with the patient and states he lives at her house. Sister states the patient was away from the house for a few days but has been home for the past 2 days. Sister states the patient had an episode 2 days ago where he was very manic and acting strange. Patient was given 2.5 mg of melatonin by his sister to get him to calm down. Patient's sister states he has Tourette's syndrome where he has been hitting himself in the head recently. Sister states she is able to decompress his behavior by holding his hand or telling him to stop and call me and him down. Patient sees [facility] for his psychiatric medications and takes gabapentin, Abilify 25 mg and he receives a 400 mg injection of Abilify every 4 weeks (which will be on Saturday.) Sister states the patient has missed several doses of his medication. Patient has no known allergies. Patient states he does not want to go to [facility] (KATHY THIBODEAUX) - Related Data Allergies/Adverse Reactions: No Known Allergies Allergy (Verified 04/27/17 20:06) Home Medications: Current Home Medications Aripiprazole [Abilify Maintena] 400 mg IM Q30MP PRN 04/27/17 [History] Aripiprazole [Aripiprazole] 10 mg PO DAILY 04/27/17 [History] Benztropine Mesylate 1 mg PO BID 04/27/17 [History] Gabapentin [Gabapentin] 300 mg PO BID 04/27/17 [History] Hydroxyzine Pamoate [Vistaril 25 mg Capsule] 25 mg PO TID PRN 04/27/17 [History] Past Medical History - General Information source: Patient, Relative - sister - Social History Smoking Status: Current Every Day Smoker Cigarette use (# per day): Yes Chew tobacco use (# tins/day): No Smoking Education Provided: Yes - > 5 minutes Frequency of alcohol use: Occasional Drug Abuse: Marijuana Family History: Other - Mother with multiple sclerosis Patient has suicidal ideation: No Patient has homicidal ideation: No Neurological Medical History: Reports: Hx Seizures Psychiatric Medical History: Reports: Hx Anxiety, Hx Attention Deficit Hyperactivity Disorder, Hx Bipolar Disorder, Hx Depression, Hx Obsessive Compulsive Disorder, Hx Post Traumatic Stress Disorder, Hx Schizophrenia Traumatic Medical History: Reports: Hx Fractures Past Surgical History: Reports: Hx Herniorrhaphy - Immunizations Immunizations up to date: Yes Hx Diphtheria, Pertussis, Tetanus Vaccination: Yes <KATHY THIBODEAUX - Last Filed: 04/27/17 23:23> Review of Systems - Review of Systems Constitutional: No symptoms reported EENT: No symptoms reported Cardiovascular: No symptoms reported Respiratory: No symptoms reported Gastrointestinal: No symptoms reported Musculoskeletal: See HPI Skin: No symptoms reported Neurological/Psychological: See HPI, Depression, Headaches, Suicidal ideation -: Yes All other systems reviewed and negative <KATHY THIBODEAUX - Last Filed: 04/27/17 23:23> Physical Exam - Vital signs Interpretation: Normal <KATHY THIBODEAUX - Last Filed: 04/27/17 23:23> <DERIK ROSENBERG - Last Filed: 04/27/17 23:56> - Vital signs Vitals: Temp Pulse Resp BP Pulse Ox 98.7 F 92 18 134/83 H 97 04/27/17 20:06 04/27/17 20:06 04/27/17 20:06 04/27/17 20:06 04/27/17 20:06 - Notes Notes: GENERAL: Alert, interacts well, Patient has a tic where he takes his hand and hits himself in the head, this is stopped by his sister. Most of his behavior is controlled and stopped by his sister rubbing his head or telling him to stop. Patient's behavior seems to be magnified for the benefit of his audience. No acute distress. HEAD: Normocephalic, atraumatic. EYES: Pupils equal, round, and reactive to light. Extraocular movements intact. ENT: Oral mucosa moist, tongue midline. NECK: Full range of motion. Supple. Trachea midline. LUNGS: Clear to auscultation bilaterally, no wheezes, rales, or rhonchi. No respiratory distress. HEART: Regular rate and rhythm. No murmurs, gallops, or rubs. ABDOMEN: Soft, non-tender. Non-distended. Bowel sounds present in all 4 quadrants. EXTREMITIES: Moves all 4 extremities spontaneously. No edema. No cyanosis. NEUROLOGICAL: Alert and oriented x3. Normal speech. PSYCH: Normal affect, normal mood, see GENERAL section about patient's behavior. SKIN: Warm, dry, normal turgor. No rashes or lesions noted. (KATHY THIBODEAUX) Course - Laboratory Result Diagrams: 04/27/17 20:35 04/27/17 20:35 <KATHY THIBODEAUX - Last Filed: 04/27/17 23:23> - Laboratory Result Diagrams: 04/27/17 20:35 04/27/17 20:35 <DERIK ROSENBERG - Last Filed: 04/27/17 23:56> - Re-evaluation Re-evalutation: 04/27/17 23:54 CBC shows slight low platelets at 131 otherwise unremarkable, CMP unremarkable, urinalysis unremarkable, salicylates and acetaminophen are undetectable as is alcohol, urine drug screen negative. EKG is nonischemic. Patient will be kept voluntarily in the emergency department overnight for reassessment by mental health in the morning for possible medication adjustment. Medication reconciliation form has been completed. At present I do not feel the patient meets IVC criteria but he is willing to stay overnight for reassessment in the morning. (DERIK ROSENBERG) - Vital Signs Vital signs: Temp Pulse Resp BP Pulse Ox 98.7 F 92 18 134/83 H 97 04/27/17 20:06 04/27/17 20:06 04/27/17 20:06 04/27/17 20:06 04/27/17 20:06 - Laboratory Laboratory results interpreted by me: 04/27/17 04/27/17 04/27/17 20:35 20:35 21:00 Plt Count 131 L Urine Urobilinogen 4.0 H Salicylates < 1.0 L Acetaminophen < 10 L - EKG Interpretation by Me Additional EKG results interpreted by me: 04/27/17 23:55 EKG shows sinus rhythm at a rate of 87, normal axis, normal intervals, no ST segment elevations or depressions, no T-wave inversions, rapid R-wave progression per my interpretation. (DERIK ROSENBERG) Discharge <KATHY THIBODEAUX - Last Filed: 04/27/17 23:23> <DERIK ROSENBERG - Last Filed: 04/27/17 23:56> - Discharge Clinical Impression: Tourettes syndrome, Suicidal ideations, Prehypertension, Tobacco abuse, Tobacco abuse counseling Condition: Stable Disposition: HOME, SELF-CARE Forms: Elevated Blood Pressure, Smoking Cessation Education Scribe Attestation: 04/27/17 23:56 I personally performed the services described in the documentation, reviewed and edited the documentation which was dictated to the scribe in my presence, and it accurately records my words and actions. (DERIK ROSENBERG) Scribe Documentation - Scribe Written by Tc:: Tc Goodson, 04/27/2017 23:23 acting as scribe for :: Erica <KATHY THIBODEAUX - Last Filed: 04/27/17 23:23>
[2017-04-27 20:56] LABS: ABSOLUTE BASOPHILS # (AUTO) 0.1 10^3/uL (0.0-0.2); ABSOLUTE EOSINOPHILS # (AUTO) 0.3 10^3/uL (0.0-0.6); ABSOLUTE LYMPHOCYTES (AUTO) 1.8 10^3/uL (0.5-4.7); ABSOLUTE MONOCYTES (AUTO) 0.7 10^3/uL (0.1-1.4); ABSOLUTE NEUT (AUTO) 7.5 10^3/uL (1.7-8.2); BASOPHILS % (AUTO) 0.6 % (0-2); EOSINOPHILS % (AUTO) 2.7 % (0-6); HEMATOCRIT 46.1 % (37.9-51.0); HEMOGLOBIN 15.8 g/dL (13.5-17.0); HGB HCT DIFFERENCE 1.3; LYMPHOCYTES % (AUTO) 17.4 % (13-45); MEAN CORPUSCULAR HEMOGLOBIN 31.7 pg (27.0-33.4); MEAN CORPUSCULAR HGB CONC 34.3 g/dL (32.0-36.0); MEAN CORPUSCULAR VOLUME 92 fl (80-97); MONOCYTES % (AUTO) 6.9 % (3-13); RED BLOOD COUNT 4.99 10^6/uL (4.35-5.55); RED CELL DISTRIBUTION WIDTH 13.6 % (11.5-14.0); SEGMENTED NEUTROPHILS % (AUTO) 72.4 % (42-78); WHITE BLOOD COUNT 10.3 10^3/uL (4.0-10.5)
[2017-04-27 21:16] LABS: ALANINE AMINOTRANSFERASE 39 U/L (21-72); ALBUMIN 4.7 g/dL (3.5-5.0); ALKALINE PHOSPHATASE 71 U/L (38-126); ANION GAP 13 (5-19); ASPARTATE AMINO TRANSFERASE 22 U/L (17-59); BILIRUBIN,DIRECT 0.3 mg/dL (0.0-0.4); BILIRUBIN,TOTAL 0.8 mg/dL (0.2-1.3); BLOOD UREA NITROGEN 16 mg/dL (7-20); CALCIUM 9.8 mg/dL (8.4-10.2); CARBON DIOXIDE 27 mmol/L (22-30); CHLORIDE 101 mmol/L (98-107); CREATININE RESULT 1.03 mg/dL (0.52-1.25); GLUCOSE 100 mg/dL (75-110); SODIUM 140.7 mmol/L (137-145); TOTAL PROTEIN 7.4 g/dL (6.3-8.2)
[2017-04-27 21:18] LABS: ALCOHOL < 10 mg/dL (NONE DETECTED)
[2017-04-27 21:41] LABS: APPEARANCE,URINE CLEAR; BILIRUBIN,URINE NEGATIVE (NEGATIVE); GLUCOSE, URINE NEGATIVE (NEGATIVE); KETONES,URINE NEGATIVE (NEGATIVE); LEUKOCYTE ESTERASE,URINE NEGATIVE (NEGATIVE); NITRITE,URINE NEGATIVE (NEGATIVE); PROTEIN,URINE NEGATIVE (NEGATIVE); URINE SPECIFIC GRAVITY 1.018
[2017-04-27 21:45] LABS: URINE BARBITURATES SCREEN NEGATIVE; URINE METHADONE SCREEN NEGATIVE; URINE OPIATES LOW NEGATIVE; URINE PHENCYCLIDINE SCREEN NEGATIVE
[2017-04-27] MEDS ORDERED: ACETAMINOPHEN 325 MG TABLET PO ONE (22:45)
[2017-04-27] MEDS ORDERED: IBUPROFEN 800 MG TABLET PO ONE (22:45)
[2017-04-27] MEDS ORDERED: HYDROXYZINE PAMOATE 25 MG CAPSULE PO PRN (23:55)
[2017-04-28] MEDS ORDERED: BENZTROPINE MESYLATE 1 MG TABLET PO ONE
[2017-04-28] MEDS ORDERED: GABAPENTIN 300 MG CAPSULE PO ONE
--- NOTE | 2017-04-28 08:08 | EKG REPORT ---
SEVERITY:- NORMAL ECG - SINUS RHYTHM : Confirmed by: Dilip Crow MD 28-Apr-2017 08:07:37
[2017-04-28 09:30] VITALS: BP 114/65
[2017-04-28] MEDS ORDERED: GABAPENTIN 300 MG CAPSULE PO SCH (10:00)
[2017-04-28] MEDS ORDERED: BENZTROPINE MESYLATE 1 MG TABLET PO SCH (10:00)
[2017-04-28] MEDS ORDERED: ARIPIPRAZOLE 5 MG TABLET PO SCH (10:00)
== END 2017-04-28 09:30 | disposition home or self-care (01) ==
LOC: ER 20:03
DX: R45.851 Suicidal ideations (principal); R45.850 Homicidal ideations; F95.2 Tourette's disorder; R03.0 Elevated blood-pressure reading, without diagnosis of hypertension; F31.9 Bipolar disorder, unspecified; F17.210 Nicotine dependence, cigarettes, uncomplicated
CPT/HCPCS: 93005; 99406; 99285; 36415; 80307 ×4; 85025; 80053; 81001; 93010; A9270

== ENCOUNTER 2017-05-22 22:22 | Emergency (ER) | payer MEDICARE, MEDICAID ==
--- NOTE | 2017-05-22 23:21 | RADIOLOGY REPORT (SQ) ---
EXAM DESCRIPTION: CHEST PA/LAT COMPLETED DATE/TIME: 05/22/2017 11:05 pm REASON FOR STUDY: CP COMPARISON: None. NUMBER OF VIEWS: Two view. TECHNIQUE: Frontal and lateral radiographic views of the chest acquired. LIMITATIONS: None. FINDINGS: LUNGS AND PLEURA: Peribronchial cuffing and interstitial changes. No consolidation, effus ion, or pneumothorax. MEDIASTINUM AND HILAR STRUCTURES: No masses. No contour abnormalities. HEART AND VASCULAR STRUCTURES: Heart normal in size and contour. No evidence for failure. BONES: No acute findings. HARDWARE: None in the chest. OTHER: No other significant finding. IMPRESSION: REACTIVE AIRWAY DISEASE VERSUS VIRAL SYNDROME. NO CONSOLIDATION. TECHNICAL DOCUMENTATION: JOB ID: [id number] [email or web address]- All Rights Reserved
[2017-05-22] MEDS ORDERED: HYDROXYZINE PAMOATE 25 MG CAPSULE PO ONE (23:30)
--- NOTE | 2017-05-22 23:32 | ER Document Report ---
ED Medical Screen (RME) - General Chief Complaint: Anxiety Stated Complaint: CHEST PAIN Time Seen by Provider: 05/22/17 23:24 Notes: Patient is a 22-year-old male who presents emergency department complaining of anxiety and chest pain. Patient [place] a lot of noise and bright lights around him he started having an anxiety attack he went behind in a dark area stated he was trying to calm down when he was noticed that he is having chest pain. Patient does have a known history of Tourette's and anxiety. Patient states that he normally takes Vistaril for his anxiety but he did not have any with him so he came to the emergency department TRAVEL OUTSIDE OF THE [place] IN LAST 30 DAYS: No - Related Data Allergies/Adverse Reactions: No Known Allergies Allergy (Verified 04/27/17 20:06) Past Medical History Neurological Medical History: Reports: Hx Seizures Renal/ Medical History: Denies: Hx Peritoneal Dialysis Psychiatric Medical History: Reports: Hx Anxiety, Hx Attention Deficit Hyperactivity Disorder, Hx Bipolar Disorder, Hx Depression, Hx Obsessive Compulsive Disorder, Hx Post Traumatic Stress Disorder, Hx Schizophrenia Traumatic Medical History: Reports: Hx Fractures Past Surgical History: Reports: Hx Herniorrhaphy - Immunizations Immunizations up to date: Yes Hx Diphtheria, Pertussis, Tetanus Vaccination: Yes Physical Exam - Vital signs Vitals: Temp Pulse Resp BP Pulse Ox 97.7 F 102 H 20 118/74 96 05/22/17 22:39 05/22/17 22:39 05/22/17 22:39 05/22/17 22:39 05/22/17 22:39 - General General appearance: Appears well, Alert In distress: None - Respiratory Respiratory status: No respiratory distress Chest status: Nontender Breath sounds: Normal Chest palpation: Normal - Cardiovascular Rhythm: Regular Heart sounds: Normal auscultation, S1 appreciated, S2 appreciated Gallop: None auscultated Pulses: Normal: Radial Course - Vital Signs Vital signs: Temp Pulse Resp BP Pulse Ox 97.7 F 102 H 20 118/74 96 05/22/17 22:39 05/22/17 22:39 05/22/17 22:39 05/22/17 22:39 05/22/17 22:39 Doctor's Discharge - Discharge Instructions: Anxiety ([facility])
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
[2017-05-23 00:38] VITALS: BP 110/68
--- NOTE | 2017-05-23 09:09 | EKG REPORT ---
SEVERITY:- OTHERWISE NORMAL ECG - SINUS TACHYCARDIA : Confirmed by: Christine Miles MD 23-May-2017 09:07:53
== END 2017-05-23 00:36 | disposition home or self-care (01) ==
LOC: ER 22:22
DX: F41.9 Anxiety disorder, unspecified (principal); R07.9 Chest pain, unspecified; F95.2 Tourette's disorder; Z79.899 Other long term (current) drug therapy; F17.200 Nicotine dependence, unspecified, uncomplicated
CPT/HCPCS: 93005; 99284; 71020; 93010; A9270

== ENCOUNTER 2017-08-05 19:41 | Emergency (ER) | payer MEDICARE, MEDICAID ==
[2017-08-05 20:42] LABS: ABSOLUTE BASOPHILS # (AUTO) 0.1 10^3/uL (0.0-0.2); ABSOLUTE EOSINOPHILS # (AUTO) 0.3 10^3/uL (0.0-0.6); ABSOLUTE LYMPHOCYTES (AUTO) 2.4 10^3/uL (0.5-4.7); ABSOLUTE MONOCYTES (AUTO) 0.8 10^3/uL (0.1-1.4); ABSOLUTE NEUT (AUTO) 6.2 10^3/uL (1.7-8.2); BASOPHILS % (AUTO) 1.1 % (0-2); EOSINOPHILS % (AUTO) 2.8 % (0-6); HEMATOCRIT 45.5 % (37.9-51.0); HEMOGLOBIN 15.8 g/dL (13.5-17.0); HGB HCT DIFFERENCE 1.9; LYMPHOCYTES % (AUTO) 24.4 % (13-45); MEAN CORPUSCULAR HEMOGLOBIN 32.1 pg (27.0-33.4); MEAN CORPUSCULAR HGB CONC 34.8 g/dL (32.0-36.0); MEAN CORPUSCULAR VOLUME 92 fl (80-97); MONOCYTES % (AUTO) 8.2 % (3-13); RED BLOOD COUNT 4.93 10^6/uL (4.35-5.55); RED CELL DISTRIBUTION WIDTH 13.2 % (11.5-14.0); SEGMENTED NEUTROPHILS % (AUTO) 63.5 % (42-78); WHITE BLOOD COUNT 9.8 10^3/uL (4.0-10.5)
[2017-08-05 20:48] LABS: APPEARANCE,URINE CLEAR; BILIRUBIN,URINE NEGATIVE (NEGATIVE); GLUCOSE, URINE NEGATIVE (NEGATIVE); KETONES,URINE NEGATIVE (NEGATIVE); LEUKOCYTE ESTERASE,URINE NEGATIVE (NEGATIVE); NITRITE,URINE NEGATIVE (NEGATIVE); PROTEIN,URINE NEGATIVE (NEGATIVE); URINE SPECIFIC GRAVITY 1.013
[2017-08-05 21:04] LABS: URINE BARBITURATES SCREEN NEGATIVE; URINE METHADONE SCREEN NEGATIVE; URINE OPIATES LOW NEGATIVE; URINE PHENCYCLIDINE SCREEN NEGATIVE
[2017-08-05 21:09] LABS: ALANINE AMINOTRANSFERASE 72 U/L (21-72); ALBUMIN 4.6 g/dL (3.5-5.0); ALKALINE PHOSPHATASE 86 U/L (38-126); ANION GAP 11 (5-19); ASPARTATE AMINO TRANSFERASE 60 U/L (17-59); BILIRUBIN,DIRECT 0.2 mg/dL (0.0-0.4); BILIRUBIN,TOTAL 0.4 mg/dL (0.2-1.3); BLOOD UREA NITROGEN 13 mg/dL (7-20); CALCIUM 9.6 mg/dL (8.4-10.2); CARBON DIOXIDE 25 mmol/L (22-30); CHLORIDE 106 mmol/L (98-107); CREATININE RESULT 0.99 mg/dL (0.52-1.25); GLUCOSE 91 mg/dL (75-110); POTASSIUM 4.1 mmol/L (3.6-5.0); SODIUM 141.8 mmol/L (137-145); TOTAL PROTEIN 7.2 g/dL (6.3-8.2)
[2017-08-05 21:10] LABS: ALCOHOL < 10 mg/dL (NONE DETECTED)
[2017-08-05] MEDS ORDERED: TRAZODONE HCL 50 MG TABLET PO ONE (23:10)
--- NOTE | 2017-08-05 23:20 | ER Document Report ---
ED General - General Chief Complaint: Psych Problem Stated Complaint: PSYCH EVALUATION Time Seen by Provider: 08/05/17 20:34 Notes: Patient is a 22-year-old male who presents with concerns of auditory hallucinations and suicidal ideation. Patient reports that over the past 1 week he has been having increasing auditory hallucinations that are telling him to run but are not commanding him to commit suicide. He states that he has been taking all medications as directed but it does not improve his symptoms. He denies that anything worsens his symptoms. He denies any attempts on his life in the past week since onset of symptoms and denies any specific plans as to how he would harm himself. He states he has had similar symptoms many times in the past and has been evaluated in this emergency room recurrently for these issues. He has not seen a psychiatrist regarding today's concerns. He denies any acute medical complaints. TRAVEL OUTSIDE OF THE [place] IN LAST 30 DAYS: No - Related Data Allergies/Adverse Reactions: No Known Allergies Allergy (Verified 08/05/17 19:42) Past Medical History - General Information source: Patient - Social History Smoking Status: Current Every Day Smoker Frequency of alcohol use: None Drug Abuse: None Lives with: Family Family History: Reviewed & Not Pertinent, Other - Mother with multiple sclerosis Patient has suicidal ideation: Yes Patient has homicidal ideation: Yes Neurological Medical History: Reports: Hx Seizures Renal/ Medical History: Denies: Hx Peritoneal Dialysis Psychiatric Medical History: Reports: Hx Anxiety, Hx Attention Deficit Hyperactivity Disorder, Hx Bipolar Disorder, Hx Depression, Hx Obsessive Compulsive Disorder, Hx Post Traumatic Stress Disorder, Hx Schizophrenia Traumatic Medical History: Reports: Hx Fractures Past Surgical History: Reports: Hx Herniorrhaphy - Immunizations Immunizations up to date: Yes Hx Diphtheria, Pertussis, Tetanus Vaccination: Yes Review of Systems - Review of Systems Notes: Constitutional: Negative for fever. HENT: Negative for sore throat. Eyes: Negative for visual changes. Cardiovascular: Negative for chest pain. Respiratory: Negative for shortness of breath. Gastrointestinal: Negative for abdominal pain, vomiting or diarrhea. Genitourinary: Negative for dysuria. Musculoskeletal: Negative for back pain. Skin: Negative for rash. Neurological: Negative for headaches, weakness or numbness. 10 point ROS negative except as marked above and in HPI. Physical Exam - Vital signs Vitals: Temp Pulse Resp BP Pulse Ox 98.8 F 92 20 124/75 97 08/05/17 19:47 08/05/17 19:47 08/05/17 19:47 08/05/17 19:47 08/05/17 19:47 Interpretation: Normal Notes: PHYSICAL EXAMINATION: GENERAL: Well-appearing, well-nourished and in no acute distress. HEAD: Atraumatic, normocephalic. EYES: Pupils equal round and reactive to light, extraocular movements intact, sclera anicteric, conjunctiva are normal. ENT: nares patent, oropharynx clear without exudates. Moist mucous membranes. NECK: Normal range of motion, supple without lymphadenopathy LUNGS: Breath sounds clear to auscultation bilaterally and equal. No wheezes rales or rhonchi. HEART: Regular rate and rhythm without murmurs ABDOMEN: Soft, nontender, normoactive bowel sounds. No guarding, no rebound. No masses appreciated. EXTREMITIES: Normal range of motion, no pitting or edema. No cyanosis. NEUROLOGICAL: No focal neurological deficits. Moves all extremities spontaneously and on command. PSYCH: Poor eye contact. Otherwise mood and affect seem normal. SKIN: Warm, Dry, normal turgor, no rashes or lesions noted. Course - Re-evaluation Re-evalutation: 08/05/17 23:15 Patient presents with suicidal ideation with auditory hallucinations without a specific plan. Patient is routinely in the emergency department complaining of similar issues. He demonstrates no intention to complete nor a plan to complete. He does not appear to be responding to internal stimuli. He denies any acute medical complaints. Pressure physical examination unremarkable. Medical screening laboratories unremarkable. He notes that he has been medication compliant. He does not meet involuntary criteria at this time. He has agreed to voluntary stay to be evaluated by psychiatry in the morning. 08/06/17 00:13 Medical screening laboratories are unremarkable. Patient is medically cleared for evaluation by psychiatry. - Vital Signs Vital signs: Temp Pulse Resp BP Pulse Ox 98.8 F 92 20 124/75 97 08/05/17 19:47 08/05/17 19:47 08/05/17 19:47 08/05/17 19:47 08/05/17 19:47 - Laboratory Result Diagrams: 08/05/17 20:27 08/05/17 20:27 Laboratory results interpreted by me: 08/05/17 08/05/17 08/05/17 20:27 20:27 20:27 Plt Count 148 L AST 60 H Urine Urobilinogen 2.0 H Salicylates < 1.0 L Acetaminophen < 10 L - EKG Interpretation by Me Additional EKG results interpreted by me: 08/06/17 00:15 Sinus rhythm. Rate 85. No ST elevations or depressions. QTC is 395 Discharge - Discharge Clinical Impression: Suicidal ideation, Auditory hallucinations Condition: Fair Disposition: PSYCH HOSP/UNIT
[2017-08-06] MEDS ORDERED: NICOTINE 21 MG/24 HR PATCH.TD24 TD ONE ×2 (00:10→04:30)
--- NOTE | 2017-08-06 08:04 | EKG REPORT ---
SEVERITY:- NORMAL ECG - SINUS RHYTHM : Confirmed by: Dilip Crow MD 06-Aug-2017 08:03:20
[2017-08-06 09:55] VITALS: BP 92/59
--- NOTE | 2017-08-06 10:25 | ER Document Report ---
Doctor's Note Notes: 08/06/17 10:24 Rounds: Chart reviewed and patient interviewed. Patient says that he continues to have voices and visual hallucinations, but they are not as bad this morning. Patient says he always has suicidal and homicidal thoughts, but there are no more severe now than previously. Patient says he feels well enough to go home. Labs were all normal. Vital signs are normal with the exception of his blood pressure of 99/55 this morning. I am having that value repeated because patient clinically does not have that blood pressure. Patient appears to be medically stable for transfer or discharge. Katlyn Hess MD 08/06/17 10:26 Patient's repeat blood pressure was 92/59. Patient clinically does not have a low blood pressure. He has a strong pulse as taken by me. He is up and ambulating without any difficulty. His hemoglobin is 15.8. I do not know why his blood pressures recording at slightly low levels, but clinically the patient is stable for transfer or discharge. Katlyn Hess MD
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
== END 2017-08-06 11:01 | disposition home or self-care (01) ==
LOC: ER 19:41
DX: R44.0 Auditory hallucinations (principal); R45.851 Suicidal ideations; F17.200 Nicotine dependence, unspecified, uncomplicated
CPT/HCPCS: 93005; 99285; 36415; 80307 ×4; 85025; 80053; 81001; 93010; A9270

== ENCOUNTER 2017-08-14 14:13 | Emergency (ER) | payer MEDICARE, MEDICAID ==
[2017-08-14 14:31] VITALS: BP 116/77
[2017-08-14] MEDS ORDERED: ONDANSETRON HCL INJ/PF 4 MG/2 ML SDV IV ONE (15:00)
[2017-08-14] MEDS ORDERED: FENTANYL CITRATE INJ/PF 100 MCG/2 ML AMPUL IV ONE (15:00)
[2017-08-14] MEDS ORDERED: NORMAL SALINE 1000 ML 1,000 ML IV ONE (15:02)
--- NOTE | 2017-08-14 15:02 | ER Document Report ---
ED Medical Screen (RME) - General Chief Complaint: Abdominal Pain Stated Complaint: LOWER BACK PAIN Time Seen by Provider: 08/14/17 14:56 Notes: 24-year-old male here with complaints of left leg pain radiating around to the front as well is epigastric abdominal pain. He has not taken anything for the symptoms. He denies nausea vomiting diarrhea. Last bowel movement was this morning and was normal. He has no prior history of kidney stones. He denies dysuria hematuria frequency. EXAM No CVA tenderness No paraspinal thoracic or lumbar muscle tenderness Mild epigastric and left upper quadrant tenderness to palpation No peritoneal signs TRAVEL OUTSIDE OF THE [place] IN LAST 30 DAYS: No - Related Data Allergies/Adverse Reactions: No Known Allergies Allergy (Verified 08/05/17 19:42) Home Medications: Current Home Medications Buspirone HCl [Buspirone HCl] 1 tab PO TID 08/14/17 [History] Lamotrigine [Lamotrigine] 1 tab PO DAILY 08/14/17 [History] Trazodone HCl 1 tab PO QHS 08/14/17 [History] Past Medical History - Social History Frequency of alcohol use: Social Drug Abuse: None Neurological Medical History: Reports: Hx Seizures Renal/ Medical History: Denies: Hx Peritoneal Dialysis Psychiatric Medical History: Reports: Hx Anxiety, Hx Attention Deficit Hyperactivity Disorder, Hx Bipolar Disorder, Hx Depression, Hx Obsessive Compulsive Disorder, Hx Post Traumatic Stress Disorder, Hx Schizophrenia Traumatic Medical History: Reports: Hx Fractures Past Surgical History: Reports: Hx Herniorrhaphy - Immunizations Immunizations up to date: Yes Hx Diphtheria, Pertussis, Tetanus Vaccination: Yes Physical Exam - Vital signs Vitals: Temp Pulse Resp BP Pulse Ox 99.1 F 105 H 18 116/77 97 08/14/17 14:31 08/14/17 14:31 08/14/17 14:31 08/14/17 14:31 08/14/17 14:31 Course - Vital Signs Vital signs: Temp Pulse Resp BP Pulse Ox 99.1 F 105 H 18 116/77 97 08/14/17 14:31 08/14/17 14:31 08/14/17 14:31 08/14/17 14:31 08/14/17 14:31
--- NOTE | 2017-08-14 15:43 | RADIOLOGY REPORT (SQ) ---
EXAM DESCRIPTION: CT LTD RENAL STONE PROTOCOL ON COMPLETED DATE/TIME: 08/14/2017 3:34 pm REASON FOR STUDY: L flank pain rad to front; eval stones colitis etc COMPARISON: 04/08/2015. TECHNIQUE: CT scan of the abdomen and pelvis performed without intravenous or oral contrast. Images reviewed with lung, soft tissue, and bone windows. Reconstructed coronal and sagittal MPR images revi ewed. All images stored on PACS. All CT scanners at this facility use dose modulation, iterative reconstruction, and/or weight based d osing when appropriate to reduce radiation dose to as low as reasonably achievable (ALARA). [facility]: Dose Right [facility]: CareDose [facility]: Dose Right [facility]: Teradose 4D [facility]: Smart Indigo Identityware RADIATION DOSE: CT Rad equipment meets quality standard of care and radiation dose reduction techniq ues were employed. CTDIvol: 9.1 mGy. DLP: 513 mGy-cm.mGy. LIMITATIONS: None. FINDINGS: LOWER CHEST: No significant findings. No nodules or infiltrates. NON-CONTRASTED LIVER, SPLEEN, ADRENALS: Evaluation limited by lack of IV contrast. No identified sign ificant masses. PANCREAS: No masses. No peripancreatic inflammatory changes. GALLBLADDER: No identified stones by CT criteria. No inflammatory changes to suggest cholecystitis. RIGHT KIDNEY AND URETER: No suspicious masses. Assessment limited by lack of IV contrast. No signif icant calcifications. No hydronephrosis or hydroureter. LEFT KIDNEY AND URETER: No suspicious masses. Assessment limited by lack of IV contrast. No signifi cant calcifications. No hydronephrosis or hydroureter. AORTA AND RETROPERITONEUM: No aneurysm. No retroperitoneal masses or adenopathy. BOWEL AND PERITONEAL CAVITY: No obvious masses or inflammatory changes. No free fluid. APPENDIX: Normal. PELVIS, BLADDER, AND ABDOMINAL WALL:No abnormal masses. No free fluid. Bladder normal. BONES: No significant findings. OTHER: No other significant finding. IMPRESSION: NO SIGNIFICANT OR ACUTE PROCESS IN THE ABDOMEN OR PELVIS. COMMENT: Quality ID # [id number]: Final reports with documentation of one or more dose reduction techniques (e.g., Automated exposure control, adjustment of the mA and/or kV according to patient size, use of iterative reconstruction technique) TECHNICAL DOCUMENTATION: JOB ID: [id number]- All Rights Reserved
[2017-08-14 15:52] LABS: ABSOLUTE EOSINOPHILS # (AUTO) 0.1 10^3/uL (0.0-0.6); ABSOLUTE MONOCYTES (AUTO) 0.7 10^3/uL (0.1-1.4); ABSOLUTE NEUT (AUTO) 4.5 10^3/uL (1.7-8.2); BASOPHILS % (AUTO) 0.7 % (0-2); HEMATOCRIT 48.7 % (37.9-51.0); HEMOGLOBIN 16.6 g/dL (13.5-17.0); LYMPHOCYTES % (AUTO) 15.7 % (13-45); MEAN CORPUSCULAR HEMOGLOBIN 31.3 pg (27.0-33.4); MEAN CORPUSCULAR HGB CONC 34.2 g/dL (32.0-36.0); MEAN CORPUSCULAR VOLUME 91 fl (80-97); MONOCYTES % (AUTO) 10.8 % (3-13); PLATELET COUNT 130 10^3/uL (150-450); RED BLOOD COUNT 5.32 10^6/uL (4.35-5.55); SEGMENTED NEUTROPHILS % (AUTO) 71.8 % (42-78); TOTAL CELLS COUNTED % (AUTO) 100 %; WHITE BLOOD COUNT 6.2 10^3/uL (4.0-10.5)
[2017-08-14 16:02] LABS: APPEARANCE,URINE CLEAR; BILIRUBIN,URINE NEGATIVE (NEGATIVE); COLOR,URINE YELLOW; GLUCOSE, URINE NEGATIVE (NEGATIVE); KETONES,URINE NEGATIVE (NEGATIVE); LEUKOCYTE ESTERASE,URINE NEGATIVE (NEGATIVE); NITRITE,URINE NEGATIVE (NEGATIVE); PROTEIN,URINE NEGATIVE (NEGATIVE); URINE SPECIFIC GRAVITY 1.026
[2017-08-14 16:10] LABS: ALANINE AMINOTRANSFERASE 51 U/L (21-72); ALBUMIN 4.7 g/dL (3.5-5.0); ALKALINE PHOSPHATASE 85 U/L (38-126); ANION GAP 14 (5-19); ASPARTATE AMINO TRANSFERASE 32 U/L (17-59); BILIRUBIN,DIRECT 0.3 mg/dL (0.0-0.4); BILIRUBIN,TOTAL 0.7 mg/dL (0.2-1.3); BLOOD UREA NITROGEN 14 mg/dL (7-20); CALCIUM 10.1 mg/dL (8.4-10.2); CARBON DIOXIDE 26 mmol/L (22-30); CHLORIDE 102 mmol/L (98-107); GLUCOSE 94 mg/dL (75-110); LIPASE 41.1 U/L (23-300); POTASSIUM 4.1 mmol/L (3.6-5.0); SODIUM 141.9 mmol/L (137-145); TOTAL PROTEIN 7.4 g/dL (6.3-8.2)
--- NOTE | 2017-08-14 17:34 | ER Document Report ---
ED GI/ - General Chief Complaint: Abdominal Pain Stated Complaint: LOWER BACK PAIN Time Seen by Provider: 08/14/17 14:56 Mode of Arrival: Ambulatory Information source: Patient Notes: Patient is a 22-year-old male who comes to emergency room complaining of right lower quadrant pain and left sided flank pain for past 2-3 days. Patient states that he deals with constipation all the time and he states this is not constipation because he has had several bowel movements that are normal and he is eating and drinking well. States the flank pain feels like a hot wrestling coach his back and the right lower quadrant pain hurts anytime he moves or walks. He denies any known injuries patient still has all of his organs. Patient does have a long psych history and is been seen here many times per patient. Patient denies any current psychological problems. TRAVEL OUTSIDE OF THE [place] IN LAST 30 DAYS: No - HPI Patient complains to provider of: Abdominal pain, Flank pain Onset: Other - 2-3 days ago Timing/Duration: Sudden, Persistent, Worse Quality of pain: Burning, Cramping, Stabbing, Throbbing Severity at maximum: Moderate Severity in ED: Moderate Pain Level: 3 Context: denies: Bad food, Lifting, Out of the country travel, , Recent trauma, Other Location: LUQ, LLQ, RLQ, Left flank. No: Chest pain, Epigastric, RUQ, Right flank, Low back, Suprapubic, Pelvis, Left testicle, Right testicle, Rectal, Other Sexual history: Active. denies: Inactive, New partner, Multiple partners, Unprotected intercourse, Rectal penetration, STD exposure, Condoms Associated symptoms: Constipation. denies: None, Blood in emesis, Blood in stool, Chest pain, Chills, Coffee ground emesis, Diarrhea, Dizzy, Dysuria, Erection problem, Fever, Foreskin problem, Hard stool, Hematuria, Hematospermia , Hurts to breath, Inguinal mass, Lightheaded, Loss of appetite, Nausea, Painful intercourse, Penile discharge, Radiates to back, Radiates to chest, Radiates to testicles, Radiates to shoulder, Shortness of breath, Sweaty, Syncope, Urinary hesitancy, Urinary frequency, Urinary retention, Urinary urgency, Vomiting, Other Exacerbated by: Movement, Walking Relieved by: Remaining still Similar symptoms previously: No Recently seen / treated by doctor: No - Related Data Allergies/Adverse Reactions: No Known Allergies Allergy (Verified 08/05/17 19:42) Home Medications: Current Home Medications Buspirone HCl [Buspirone HCl] 1 tab PO TID 08/14/17 [History] Lamotrigine [Lamotrigine] 1 tab PO DAILY 08/14/17 [History] Trazodone HCl 1 tab PO QHS 08/14/17 [History] Past Medical History - General Information source: Patient - Social History Smoking Status: Current Every Day Smoker Cigarette use (# per day): Yes - 1 pack a day Chew tobacco use (# tins/day): No Smoking Education Provided: Yes Frequency of alcohol use: Social Drug Abuse: None Family History: Reviewed & Not Pertinent, Other - Mother with multiple sclerosis Patient has suicidal ideation: No Patient has homicidal ideation: No Neurological Medical History: Reports: Hx Seizures Renal/ Medical History: Denies: Hx Peritoneal Dialysis Psychiatric Medical History: Reports: Hx Anxiety, Hx Attention Deficit Hyperactivity Disorder, Hx Bipolar Disorder, Hx Depression, Hx Obsessive Compulsive Disorder, Hx Post Traumatic Stress Disorder, Hx Schizophrenia Traumatic Medical History: Reports: Hx Fractures Past Surgical History: Reports: Hx Herniorrhaphy - Immunizations Immunizations up to date: Yes Hx Diphtheria, Pertussis, Tetanus Vaccination: Yes Review of Systems - Review of Systems Constitutional: No symptoms reported EENT: No symptoms reported Cardiovascular: No symptoms reported Respiratory: No symptoms reported Gastrointestinal: Abdominal pain, Nausea Genitourinary: No symptoms reported Male Genitourinary: No symptoms reported Musculoskeletal: Back pain, Joint pain, Muscle pain Skin: No symptoms reported Hematologic/Lymphatic: No symptoms reported Neurological/Psychological: No symptoms reported -: Yes All other systems reviewed and negative Physical Exam - Vital signs Vitals: Temp Pulse Resp BP Pulse Ox 99.1 F 105 H 18 116/77 97 08/14/17 14:31 08/14/17 14:31 08/14/17 14:31 08/14/17 14:31 08/14/17 14:31 Interpretation: Tachycardic - General General appearance: Appears well - Respiratory Respiratory status: No respiratory distress Chest status: Nontender Breath sounds: Normal. No: Decreased air movement, Nonproductive cough, Productive cough, Rales, Rhonchi, Stridor, Wheezing, Other - Cardiovascular Rhythm: Tachycardia Heart sounds: Normal auscultation Murmur: No - Abdominal Inspection: Normal Distension: No distension Bowel sounds: Normal Tenderness: Other - Physical exam patient's abdomen shows nonspecific tenderness in the right lower quadrant. Patient does not have all peritoneal signs he has positive discomfort with ballottement to the area but he has no rebound is gotten obturator is got no psoas a little straight leg to percussion kind of the waveform type presentation there is no flank pain notable. No left lower quadrant abdomen pain or discomfort. Organomegaly: No organomegaly - Back Back: Normal, Nontender - Extremities General upper extremity: Normal inspection, Normal ROM General lower extremity: Normal inspection, Normal ROM, Normal weight bearing - Neurological Neuro grossly intact: Yes Cognition: Normal Orientation: AAOx4 Srinivasan Coma Scale Eye Opening: Spontaneous Srinivasan Coma Scale Verbal: Oriented Srinivasan Coma Scale Motor: Obeys Commands Srinivasan Coma Scale Total: 15 Speech: Normal - Psychological Associated symptoms: Normal affect Course - Vital Signs Vital signs: Temp Pulse Resp BP Pulse Ox 99.1 F 105 H 18 116/77 97 08/14/17 14:31 08/14/17 14:31 08/14/17 14:31 08/14/17 14:31 08/14/17 14:31 - Laboratory Result Diagrams: 08/14/17 15:28 08/14/17 15:28 Laboratory results interpreted by me: 08/14/17 08/14/17 15:08 15:28 Plt Count 130 L Urine Urobilinogen 4.0 H - Diagnostic Test Radiology reviewed: Reports reviewed - CT plain of the abdomen and pelvis shows no acute findings particularly no appendix and no renal stones. - Transfer of Care Notes: 08/14/17 17:37 Patient's workup was totally benign. His labs were perfectly normal there was no blood in his urine he is white count was normal no reason to believe at this point there is any appendicitis. Went to send patient home with a little bit of Levsin for the cramping. I believe possibly is got still some constipation going on there is large amount of stool in the right lower quadrant area which may be contributing to his discomfort. Discharge - Discharge Clinical Impression: Nonspecific abdominal pain Condition: Good Disposition: HOME, SELF-CARE Instructions: Abdominal Pain ([facility]), Antispasmodics ([facility]) Additional Instructions: Home and rest. Medication every 4-6 hours for cramping pain. Still suggest that you continue with MiraLAX or a stool bulking agent in order to keep yourself normal. Should you spike a fever or have uncontrolled pain or discomfort return to ER for recheck. Highly suggested follow-up with your primary care sometime this week hopefully before the holidays so you can be evaluated. Prescriptions: Hyoscyamine Sulfate [Levsin 0.125 Tablet] 0.125 mg PO Q4 PRN #20 tablet PRN Reason: Forms: Smoking Cessation Education Referrals: ALEXANDRA CHAVEZ MD [Primary Care Provider] - Follow up as needed
== END 2017-08-14 17:59 | disposition home or self-care (01) ==
LOC: ER 14:13
DX: R10.31 Right lower quadrant pain (principal); R10.12 Left upper quadrant pain; R10.32 Left lower quadrant pain; M54.5 Low back pain; F17.210 Nicotine dependence, cigarettes, uncomplicated; R00.0 Tachycardia, unspecified
CPT/HCPCS: 99284; 96361; 96374; 96375; 36415; 83690; 85025; 80053; 81001; 76380; J3010; J2405; J7030

== ENCOUNTER 2017-11-06 16:40 | Emergency (ER) | payer MEDICARE, MEDICAID ==
[2017-11-06 19:07] LABS: ABSOLUTE EOSINOPHILS # (AUTO) 0.1 10^3/uL (0.0-0.6); ABSOLUTE LYMPHOCYTES (AUTO) 1.9 10^3/uL (0.5-4.7); ABSOLUTE MONOCYTES (AUTO) 1.1 10^3/uL (0.1-1.4); ABSOLUTE NEUT (AUTO) 4.5 10^3/uL (1.7-8.2); BASOPHILS % (AUTO) 0.5 % (0-2); EOSINOPHILS % (AUTO) 1.3 % (0-6); HEMATOCRIT 47.7 % (37.9-51.0); HEMOGLOBIN 16.6 g/dL (13.5-17.0); LYMPHOCYTES % (AUTO) 24.7 % (13-45); MEAN CORPUSCULAR HEMOGLOBIN 31.2 pg (27.0-33.4); MEAN CORPUSCULAR HGB CONC 34.8 g/dL (32.0-36.0); MEAN CORPUSCULAR VOLUME 90 fl (80-97); MONOCYTES % (AUTO) 14.7 % (3-13); PLATELET COUNT 143 10^3/uL (150-450); RED BLOOD COUNT 5.31 10^6/uL (4.35-5.55); SEGMENTED NEUTROPHILS % (AUTO) 58.8 % (42-78); TOTAL CELLS COUNTED % (AUTO) 100 %; WHITE BLOOD COUNT 7.7 10^3/uL (4.0-10.5)
[2017-11-06 19:19] LABS: APPEARANCE,URINE CLEAR; BILIRUBIN,URINE NEGATIVE (NEGATIVE); COLOR,URINE AMBER; GLUCOSE, URINE NEGATIVE (NEGATIVE); KETONES,URINE NEGATIVE (NEGATIVE); LEUKOCYTE ESTERASE,URINE NEGATIVE (NEGATIVE); NITRITE,URINE NEGATIVE (NEGATIVE); PROTEIN,URINE 30 mg/dL (NEGATIVE); URINE SPECIFIC GRAVITY 1.033
[2017-11-06 19:39] LABS: ALANINE AMINOTRANSFERASE 43 U/L (21-72); ALBUMIN 4.4 g/dL (3.5-5.0); ALKALINE PHOSPHATASE 81 U/L (38-126); ANION GAP 12 (5-19); ASPARTATE AMINO TRANSFERASE 37 U/L (17-59); BILIRUBIN,DIRECT 0.6 mg/dL (0.0-0.4); BLOOD UREA NITROGEN 12 mg/dL (7-20); CALCIUM 9.8 mg/dL (8.4-10.2); CARBON DIOXIDE 30 mmol/L (22-30); CHLORIDE 99 mmol/L (98-107); CREATINE KINASE 66 U/L (55-170); GLUCOSE 80 mg/dL (75-110); SODIUM 141.1 mmol/L (137-145); TOTAL PROTEIN 7.3 g/dL (6.3-8.2)
--- NOTE | 2017-11-06 20:05 | ER Document Report ---
ED General - General Chief Complaint: Abdominal Pain Stated Complaint: POSSIBLE DEHYDRATION Time Seen by Provider: 11/06/17 18:23 Mode of Arrival: Ambulatory Information source: Patient Notes: Patient states that he feels he may be dehydrated. He states he has not been peeing same amount that he normally does. He states is also had decreased bowel movements for 1 day. He states he has had some abdominal pain for 3-4 days as well. It is diffuse and crampy. Nothing makes it better or worse. Does not radiate. It is mild to moderate. Is been intermittent. Patient denies any vomiting. TRAVEL OUTSIDE OF THE [place] IN LAST 30 DAYS: No - Related Data Allergies/Adverse Reactions: No Known Allergies Allergy (Verified 11/06/17 18:01) Past Medical History - General Information source: Patient - Social History Smoking Status: Current Every Day Smoker Chew tobacco use (# tins/day): No Frequency of alcohol use: Social Drug Abuse: None Family History: Reviewed & Not Pertinent, Other - Mother with multiple sclerosis Patient has suicidal ideation: No Patient has homicidal ideation: No Neurological Medical History: Reports: Hx Seizures Renal/ Medical History: Denies: Hx Peritoneal Dialysis Musculoskeltal Medical History: Reports Hx Arthritis Psychiatric Medical History: Reports: Hx Anxiety, Hx Attention Deficit Hyperactivity Disorder, Hx Bipolar Disorder, Hx Depression, Hx Obsessive Compulsive Disorder, Hx Post Traumatic Stress Disorder, Hx Schizophrenia Traumatic Medical History: Reports: Hx Fractures Past Surgical History: Reports: Hx Herniorrhaphy - Immunizations Immunizations up to date: Yes Hx Diphtheria, Pertussis, Tetanus Vaccination: Yes Review of Systems - Review of Systems Constitutional: denies: Chills, Fever Cardiovascular: denies: Chest pain, Palpitations Respiratory: denies: Cough, Short of breath Gastrointestinal: denies: Abdominal pain, Constipation -: Yes All other systems reviewed and negative Physical Exam - Vital signs Vitals: Temp Pulse Resp BP Pulse Ox 98.8 F 79 16 107/76 98 11/06/17 16:55 11/06/17 16:55 11/06/17 16:55 11/06/17 16:55 11/06/17 16:55 Interpretation: Normal - General General appearance: Appears well, Alert - HEENT Head: Normocephalic, Atraumatic Eyes: Normal Pupils: PERRL - Respiratory Respiratory status: No respiratory distress Chest status: Nontender Breath sounds: Normal Chest palpation: Normal - Cardiovascular Rhythm: Regular Heart sounds: Normal auscultation Murmur: No - Abdominal Inspection: Normal Distension: No distension Bowel sounds: Normal Tenderness: Nontender Organomegaly: No organomegaly - Back Back: Normal, Nontender - Extremities General upper extremity: Normal inspection, Nontender, Normal color, Normal ROM , Normal temperature General lower extremity: Normal inspection, Nontender, Normal color, Normal ROM , Normal temperature, Normal weight bearing. No: Jennifer's sign - Neurological Neuro grossly intact: Yes Cognition: Normal Orientation: AAOx4 [place] Coma Scale Eye Opening: Spontaneous Srinivasan Coma Scale Verbal: Oriented [place] Coma Scale Motor: Obeys Commands [place] Coma Scale Total: 15 Speech: Normal Motor strength normal: LUE, RUE, LLE, RLE Sensory: Normal - Psychological Associated symptoms: Normal affect, Normal mood - Skin Skin Temperature: Warm Skin Moisture: Dry Skin Color: Normal Course - Vital Signs Vital signs: Temp Pulse Resp BP Pulse Ox 98.8 F 79 16 107/76 98 11/06/17 16:55 11/06/17 16:55 11/06/17 16:55 11/06/17 16:55 11/06/17 16:55 - Laboratory Result Diagrams: 11/06/17 18:29 11/06/17 18:29 Laboratory results interpreted by me: 11/06/17 11/06/17 11/06/17 18:29 18:29 18:29 Plt Count 143 L Monocytes % 14.7 H Direct Bilirubin 0.6 H Urine Protein 30 H Urine Blood SMALL H Urine Urobilinogen 4.0 H Discharge - Discharge Clinical Impression: Abdominal pain Qualifiers: Abdominal location: generalized Qualified Code(s): R10.84 - Generalized abdominal pain Condition: Stable Disposition: HOME, SELF-CARE Instructions: Abdominal Pain ([facility]) Forms: Return to Work
[2017-11-06 20:11] VITALS: BP 119/74
== END 2017-11-06 20:10 | disposition home or self-care (01) ==
LOC: ER 16:40
DX: R10.84 Generalized abdominal pain (principal); R19.4 Change in bowel habit; F17.200 Nicotine dependence, unspecified, uncomplicated
CPT/HCPCS: 36415; 80053; 81001; 82550; 85025; 99284

== ENCOUNTER 2017-12-07 20:12 | Emergency (ER) | payer MEDICARE, MEDICAID ==
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
[2017-12-07] MEDS ORDERED: KETOROLAC TROMETHAMINE 60 MG/2 ML SDV IM ONE (21:05)
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
[2017-12-07 22:47] VITALS: BP 101/74
== END 2017-12-07 22:47 | disposition home or self-care (01) ==
LOC: ER 20:12
DX: S83.8X2A Sprain of other specified parts of left knee, initial encounter (principal); M79.89 Other specified soft tissue disorders; W22.8XXA Striking against or struck by other objects, initial encounter
CPT/HCPCS: 99283; 96372; 73562; L1830; J1885

== ENCOUNTER → 2017-12-31 | Outpatient (CLI) | payer MEDICARE, MEDICAID ==
--- NOTE | 2017-12-31 16:44 | RADIOLOGY REPORT (SQ) ---
EXAM DESCRIPTION: LUMBAR SPINE COMPLETE COMPLETED DATE/TIME: 12/31/2017 4:35 pm REASON FOR STUDY: LOW BACK PAIN M54.5 LOW BACK PAIN COMPARISON: Sacrum films same date CT abdomen pelvis 08/14/2017 NUMBER OF VIEWS: Five views including obliques. TECHNIQUE: AP, lateral, oblique, and sacral radiographic images acquired of the lumbar spine. LIMITATIONS: None. FINDINGS: MINERALIZATION: Normal. SEGMENTATION: Normal. No transitional anatomy. ALIGNMENT: Normal. VERTEBRAE: Maintained height. No fracture or worrisome bone lesion. DISCS: Preserved height. No significant osteophytes or end plate irregularity. POSTERIOR ELEMENTS: Pedicles and facets are intact. No pars defect or posterior arch defects. HARDWARE: None in the spine. PARASPINAL SOFT TISSUES: Normal. PELVIS: Not entirely included in the field of view. SI joints are unremarkable OTHER: No other significant finding. IMPRESSION: NORMAL 5 VIEW LUMBAR SPINE. TECHNICAL DOCUMENTATION: JOB ID: [id number] [employer]- All Rights Reserved Reading location - IP/workstation name: [email or web address]
--- NOTE | 2017-12-31 16:45 | RADIOLOGY REPORT (SQ) ---
EXAM DESCRIPTION: SACRUM AND COCCYX COMPLETED DATE/TIME: 12/31/2017 4:35 pm REASON FOR STUDY: LOW BACK PAIN M54.5 LOW BACK PAIN COMPARISON: Lumbar spine five views same date NUMBER OF VIEWS: Three views. TECHNIQUE: AP, lateral, and tilt views of the sacrum and coccyx. LIMITATIONS: None. FINDINGS: MINERALIZATION: Normal. BONES: No acute fracture or dislocation. No worrisome bone lesions. SOFT TISSUES: No soft tissue swelling. No foreign body. OTHER: No other significant finding. IMPRESSION: NEGATIVE STUDY OF THE SACRUM AND COCCYX. TECHNICAL DOCUMENTATION: JOB ID: [id number] [employer]- All Rights Reserved Reading location - IP/workstation name: [email or web address]
== END ==
LOC: OD 16:17
PROVIDERS: ATTEND Family Medicine Geriatric Medicine
DX: M54.5 Low back pain (principal)
CPT/HCPCS: 72110; 72220

== ENCOUNTER → 2018-01-01 | Outpatient (CLI) | payer MEDICARE, MEDICAID ==
[2018-01-01 12:31] LABS: ABSOLUTE EOSINOPHILS # (AUTO) 0.3 10^3/uL (0.0-0.6); ABSOLUTE LYMPHOCYTES (AUTO) 1.6 10^3/uL (0.5-4.7); ABSOLUTE MONOCYTES (AUTO) 0.7 10^3/uL (0.1-1.4); BASOPHILS % (AUTO) 0.6 % (0-2); EOSINOPHILS % (AUTO) 3.6 % (0-6); HEMOGLOBIN 16.5 g/dL (13.5-17.0); LYMPHOCYTES % (AUTO) 21.2 % (13-45); MEAN CORPUSCULAR HEMOGLOBIN 31.2 pg (27.0-33.4); MEAN CORPUSCULAR HGB CONC 34.3 g/dL (32.0-36.0); MEAN CORPUSCULAR VOLUME 91 fl (80-97); MONOCYTES % (AUTO) 8.8 % (3-13); PLATELET COUNT 128 10^3/uL (150-450); RED BLOOD COUNT 5.28 10^6/uL (4.35-5.55); RED CELL DISTRIBUTION WIDTH 13.7 % (11.5-14.0); SEGMENTED NEUTROPHILS % (AUTO) 65.8 % (42-78); TOTAL CELLS COUNTED % (AUTO) 100 %; WHITE BLOOD COUNT 7.6 10^3/uL (4.0-10.5)
[2018-01-01 12:54] LABS: ALANINE AMINOTRANSFERASE 33 U/L (21-72); ALBUMIN 4.7 g/dL (3.5-5.0); ALKALINE PHOSPHATASE 71 U/L (38-126); ANION GAP 13 (5-19); ASPARTATE AMINO TRANSFERASE 20 U/L (17-59); BILIRUBIN,DIRECT 0.3 mg/dL (0.0-0.4); BILIRUBIN,TOTAL 0.6 mg/dL (0.2-1.3); BLOOD UREA NITROGEN 11 mg/dL (7-20); CALCIUM 9.9 mg/dL (8.4-10.2); CARBON DIOXIDE 25 mmol/L (22-30); CHLORIDE 105 mmol/L (98-107); CHOLESTEROL 153.86 mg/dL (0-200); GLUCOSE 85 mg/dL (75-110); POTASSIUM 4.3 mmol/L (3.6-5.0); SODIUM 142.9 mmol/L (137-145); TOTAL PROTEIN 7.3 g/dL (6.3-8.2); TRIGLYCERIDES 58 mg/dL (<150)
[2018-01-01 13:10] LABS: DIRECT LDL 90 mg/dL (<100)
== END ==
LOC: OD 11:09
PROVIDERS: ATTEND Family Medicine Geriatric Medicine
DX: E66.9 Obesity, unspecified (principal); G40.909 Epilepsy, unspecified, not intractable, without status epilepticus; Z79.899 Other long term (current) drug therapy
CPT/HCPCS: 36415; 80053; 80061; 84443; 85025

== ENCOUNTER 2018-02-12 17:36 | Emergency (ER) | payer MEDICARE, MEDICAID ==
--- NOTE | 2018-02-12 19:07 | ER Document Report ---
HPI - HPI Patient complains to provider of: Cough, congestion Onset: Other - 2 days Onset/Duration: Persistent Pain Level: Denies Context: Patient presents complaining of cough for the past 2 days with sinus congestion. Patient states he had some vomiting yesterday although none today. Patient denies any fever. Patient denies any diarrhea. Associated Symptoms: Nonproductive cough, Rhinnorhea. denies: Earache, Fever, Sore throat Exacerbated by: Denies Relieved by: Denies Similar symptoms previously: Yes Recently seen / treated by doctor: No - ROS ROS below otherwise negative: Yes Systems Reviewed and Negative: Yes All other systems reviewed and negative - CONSTITUTIONAL Constitutional: DENIES: Fever - EENT EENT: REPORTS: Nasal Drainage-Clear, Congestion - NEURO Neurology: DENIES: Headache - RESPIRATORY Respiratory: REPORTS: Coughing - GASTROINTESTINAL Gastrointestinal: REPORTS: Patient vomiting. DENIES: Abdominal Pain, Diarrhea - MUSCULOSKELETAL Musculoskeletal: DENIES: Back Pain - DERM Skin Color: Normal Skin Problems: None Past Medical History - General Information source: Patient - Social History Smoking Status: Current Every Day Smoker Smoking Education Provided: Yes Frequency of alcohol use: None Drug Abuse: None Occupation: none Lives with: Family Family History: Reviewed & Not Pertinent, Other - Mother with multiple sclerosis Neurological Medical History: Reports: Hx Seizures Renal/ Medical History: Denies: Hx Peritoneal Dialysis Musculoskeltal Medical History: Reports Hx Arthritis Psychiatric Medical History: Reports: Hx Anxiety, Hx Attention Deficit Hyperactivity Disorder, Hx Bipolar Disorder, Hx Depression, Hx Obsessive Compulsive Disorder, Hx Post Traumatic Stress Disorder, Hx Schizophrenia Traumatic Medical History: Reports: Hx Fractures Past Surgical History: Reports: Hx Herniorrhaphy - Immunizations Immunizations up to date: Yes Hx Diphtheria, Pertussis, Tetanus Vaccination: Yes Vertical Provider Document - CONSTITUTIONAL Agree With Documented VS: Yes Exam Limitations: No Limitations General Appearance: WD/WN, No Apparent Distress - INFECTION CONTROL TRAVEL OUTSIDE OF THE [place] IN LAST 30 DAYS: No - HEENT HEENT: Atraumatic, Normocephalic. negative: Pharyngeal Exudate, Pharyngeal Tenderness, Pharyngeal Erythema, Tympanic Membrane Red, Tympanic Membrane Bulging Notes: Clear rhinorrhea - NECK Neck: Normal Inspection, Supple. negative: Lymphadenopathy-Left, Lymphadenopathy-Right - RESPIRATORY Respiratory: No Respiratory Distress, Chest Non-Tender, Rhonchi - CARDIOVASCULAR Cardiovascular: Regular Rate, Regular Rhythm, No Murmur - GI/ABDOMEN Gastrointestinal: Abdomen Soft, Abdomen Non-Tender, No Organomegaly - BACK Back: Normal Inspection. negative: CVA Tenderness-Right, CVA Tenderness-Left - MUSCULOSKELETAL/EXTREMETIES Musculoskeletal/Extremeties: MAEW - NEURO Level of Consciousness: Awake, Alert, Appropriate Motor/Sensory: No Motor Deficit - DERM Integumentary: Warm, Dry, No Rash Course - Re-evaluation Re-evalutation: 02/12/18 19:53 Respirations unlabored. Patient nontoxic in appearance. No concern for pneumonia at this time. Good return precautions given. - Vital Signs Vital signs: Temp Pulse Resp BP Pulse Ox 99.3 F 89 16 116/70 97 02/12/18 17:47 02/12/18 17:47 02/12/18 17:47 02/12/18 17:47 02/12/18 17:47 - Diagnostic Test Radiology reviewed: Reports reviewed Discharge - Discharge Clinical Impression: Upper respiratory infection Qualifiers: URI type: unspecified URI Qualified Code(s): J06.9 - Acute upper respiratory infection, unspecified Condition: Stable Disposition: HOME, SELF-CARE Instructions: Upper Respiratory Illness ([facility]) Additional Instructions: Return immediately for any new or worsening symptoms Followup with your primary care provider, call tomorrow to make a followup appointment Prescriptions: Benzonatate [Tessalon Perle 100 mg Capsule] 100 mg PO Q8HP PRN #15 cap PRN Reason: Naproxen [Naprosyn 250 Nmg Tablet] 1 tab PO BID #14 tablet Forms: Smoking Cessation Education Referrals: JASON MAHONEY MD [COMMUNITY BASED STAFF] - Follow up tomorrow
--- NOTE | 2018-02-12 19:24 | RADIOLOGY REPORT (SQ) ---
EXAM DESCRIPTION: CHEST 2 VIEWS COMPLETED DATE/TIME: 02/12/2018 7:18 pm REASON FOR STUDY: cough COMPARISON: 05/22/2017 EXAM PARAMETERS: NUMBER OF VIEWS: two views TECHNIQUE: Digital Frontal and Lateral radiographic views of the chest acquired. RADIATION DOSE: NA LIMITATIONS: none FINDINGS: LUNGS AND PLEURA: No opacities, masses or pneumothorax. No pleural effusion. MEDIASTINUM AND HILAR STRUCTURES: No masses or contour abnormalities. HEART AND VASCULAR STRUCTURES: Heart normal size. No evidence for failure. BONES: No acute findings. HARDWARE: None in the chest. OTHER: No other significant finding. IMPRESSION: NO ACUTE RADIOGRAPHIC FINDING IN THE CHEST. TECHNICAL DOCUMENTATION: JOB ID: [id number] [employer]- All Rights Reserved Reading location - IP/workstation name: [email or web address]
[2018-02-12 20:05] VITALS: BP 104/76
== END 2018-02-12 20:05 | disposition home or self-care (01) ==
LOC: ER 17:36
DX: J06.9 Acute upper respiratory infection, unspecified (principal); R05 Cough; R09.81 Nasal congestion; R11.10 Vomiting, unspecified; J34.89 Other specified disorders of nose and nasal sinuses; R09.89 Other specified symptoms and signs involving the circulatory and respiratory systems; F17.200 Nicotine dependence, unspecified, uncomplicated
CPT/HCPCS: 71046; 99283

== ENCOUNTER 2018-02-24 22:38 | Emergency (ER) | payer MEDICARE, MEDICAID ==
[2018-02-24] MEDS ORDERED: ACETAMINOPHEN 325 MG TABLET PO ONE (23:03)
[2018-02-24 23:32] LABS: ABSOLUTE BASOPHILS # (AUTO) 0.1 10^3/uL (0.0-0.2); ABSOLUTE EOSINOPHILS # (AUTO) 0.3 10^3/uL (0.0-0.6); ABSOLUTE LYMPHOCYTES (AUTO) 2.7 10^3/uL (0.5-4.7); ABSOLUTE MONOCYTES (AUTO) 0.9 10^3/uL (0.1-1.4); ABSOLUTE NEUT (AUTO) 6.1 10^3/uL (1.7-8.2); BASOPHILS % (AUTO) 0.9 % (0-2); HEMATOCRIT 46.2 % (37.9-51.0); HEMOGLOBIN 16.1 g/dL (13.5-17.0); LYMPHOCYTES % (AUTO) 27.2 % (13-45); MEAN CORPUSCULAR HEMOGLOBIN 31.7 pg (27.0-33.4); MEAN CORPUSCULAR HGB CONC 34.8 g/dL (32.0-36.0); MEAN CORPUSCULAR VOLUME 91 fl (80-97); MONOCYTES % (AUTO) 8.7 % (3-13); PLATELET COUNT 150 10^3/uL (150-450); RED BLOOD COUNT 5.07 10^6/uL (4.35-5.55); RED CELL DISTRIBUTION WIDTH 13.3 % (11.5-14.0); SEGMENTED NEUTROPHILS % (AUTO) 60.2 % (42-78); TOTAL CELLS COUNTED % (AUTO) 100 %; WHITE BLOOD COUNT 10.1 10^3/uL (4.0-10.5)
[2018-02-24 23:39] LABS: AMORPHOUS SEDIMENT,URINE TRACE /HPF; APPEARANCE,URINE SLIGHTLY-CLOUDY; BILIRUBIN,URINE SMALL (NEGATIVE); GLUCOSE, URINE NEGATIVE (NEGATIVE); KETONES,URINE NEGATIVE (NEGATIVE); LEUKOCYTE ESTERASE,URINE NEGATIVE (NEGATIVE); NITRITE,URINE NEGATIVE (NEGATIVE); PROTEIN,URINE 30 mg/dL (NEGATIVE); URINE SPECIFIC GRAVITY 1.033
[2018-02-24 23:40] LABS: COLOR,URINE YELLOW
[2018-02-25 00:05] LABS: ALANINE AMINOTRANSFERASE 32 U/L (21-72); ALBUMIN 4.4 g/dL (3.5-5.0); ALKALINE PHOSPHATASE 77 U/L (38-126); ANION GAP 14 (5-19); ASPARTATE AMINO TRANSFERASE 32 U/L (17-59); BILIRUBIN,DIRECT 0.4 mg/dL (0.0-0.4); BILIRUBIN,TOTAL 0.4 mg/dL (0.2-1.3); BLOOD UREA NITROGEN 12 mg/dL (7-20); CALCIUM 9.5 mg/dL (8.4-10.2); CARBON DIOXIDE 26 mmol/L (22-30); CHLORIDE 105 mmol/L (98-107); GLUCOSE 82 mg/dL (75-110); SODIUM 144.6 mmol/L (137-145); TOTAL PROTEIN 7.3 g/dL (6.3-8.2)
[2018-02-25] MEDS ORDERED: PROCHLORPERAZINE EDISYLATE INJ 10 MG/2 ML VIAL IV ONE (01:52)
[2018-02-25] MEDS ORDERED: DIPHENHYDRAMINE HCL 50 MG/ML VIAL IV ONE (01:53)
[2018-02-25] MEDS ORDERED: KETOROLAC TROMETHAMINE INJ/PF 30 MG/1 ML SDV IV ONE (01:53)
--- NOTE | 2018-02-25 01:57 | ER Document Report ---
ED General - General Chief Complaint: Headache Stated Complaint: HEADACHE Time Seen by Provider: 02/25/18 01:42 TRAVEL OUTSIDE OF THE [place] IN LAST 30 DAYS: No - HPI Notes: Patient is a 22-year-old male with a history of bipolar, Tourette's, absence seizures who presents to the ED complaining of a headache to the right side 1 day. Patient states that he has tried some vqek-lom-oczvxve meds with minimal relief. Patient states that the pain does not radiate. Patient states that he has had headaches like this in the past. Patient states that he is still eating and drinking without any difficulties. He did have 1 episode of n/v initially which has since resolved. He is urinating normally and having normal bowel movements. Patient states that he did have a few small absence seizures which she has a history of it is not uncommon for him. Patient states that he is taking his medicines as directed by his primary care doctor. He has no other concerns or complaints at this time. Denies any drug allergies. Denies any IV drug use. Pt is still getting over an URI and his coughing is what makes his MURPHY worse. Denies any fever, head injury, neck pain, changes in vision /speech/mentation/hearing, URI, sore throat, chest pain, palpitations, syncope, cough, shortness of breath, wheeze, dyspnea, abdominal pain, current nausea/ vomiting/diarrhea, urinary retention, dysuria, hematuria, loss of control of bowel or bladder, numbness/tingling, muscle paralysis/weakness, or rash. - Related Data Allergies/Adverse Reactions: No Known Allergies Allergy (Verified 02/12/18 17:38) Past Medical History - Social History Smoking Status: Current Every Day Smoker Chew tobacco use (# tins/day): No Frequency of alcohol use: None Drug Abuse: None Family History: Reviewed & Not Pertinent, Other - Mother with multiple sclerosis Patient has suicidal ideation: No Patient has homicidal ideation: No Neurological Medical History: Reports: Hx Seizures Renal/ Medical History: Denies: Hx Peritoneal Dialysis Musculoskeltal Medical History: Reports Hx Arthritis Psychiatric Medical History: Reports: Hx Anxiety, Hx Attention Deficit Hyperactivity Disorder, Hx Bipolar Disorder, Hx Depression, Hx Obsessive Compulsive Disorder, Hx Post Traumatic Stress Disorder, Hx Schizophrenia Traumatic Medical History: Reports: Hx Fractures Past Surgical History: Reports: Hx Herniorrhaphy - Immunizations Immunizations up to date: Yes Hx Diphtheria, Pertussis, Tetanus Vaccination: Yes Review of Systems - Review of Systems -: Yes All other systems reviewed and negative Physical Exam - Vital signs Vitals: Temp Pulse Resp BP Pulse Ox 98.6 F 94 18 128/74 H 98 02/24/18 23:30 02/24/18 23:30 02/24/18 23:30 02/24/18 23:30 02/24/18 23:30 - Notes Notes: PHYSICAL EXAMINATION: GENERAL: Well-appearing, well-nourished and in no acute distress. A&Ox4. Answers questions appropriately. HEAD: Atraumatic, normocephalic. Non-tender. EYES: Pupils equal round and reactive to light, extraocular movements intact, sclera anicteric, conjunctiva are normal. No nystagmus. Vis pierce intact. Non-tender to palp of the globe. No obvious proptosis. ENT: EAC clear b/l. TM's intact b/l without erythema, fluid, or perforation. Nares patent and without discharge. oropharynx clear without exudates. No tonsilar hypertrophy or erythema. Moist mucous membranes. NECK: Normal range of motion, supple without lymphadenopathy. No rigidity. No midline tenderness. kernig/brudzinski negative. LUNGS: Breath sounds clear to auscultation bilaterally and equal. No wheezes rales or rhonchi. HEART: Regular rate and rhythm without murmurs, rubs, gallops. Musculoskeletal: Ext b/l: FROM to passive/active. Strength 5+/5. No deficits noted. Extremities: No cyanosis, clubbing, or edema b/l. Peripheral pulses 2+. Capillary refill less than 2 seconds. NEUROLOGICAL: NIH 0. GCS 15. Cranial nerves grossly intact. Normal speech, normal gait. Normal sensory, motor exams. Reflexes 2+ b/l. JESUS's negative. Pronator drift negative. PSYCH: Normal mood, normal affect. SKIN: Warm, Dry, normal turgor, no rashes or lesions noted. Course - Re-evaluation Re-evalutation: 02/25/18 02:42 Patient is an afebrile, well-hydrated, 22-year-old male who presents to the ED with a headache, suspect benign. Vitals are acceptable without any significant tachycardia, tachypnea, or hypoxia. PE is otherwise unremarkable for any focal neurological deficits. NIH 0, GCS 15, cranial nerves grossly intact. No labs or imaging warranted at this time based on H&P. Patient is nontoxic-appearing and is tolerating p.o. without any difficulties. Patient was given Benadryl, Compazine, and Toradol IV. Patient had complete resolution of his headache and is feeling much better. Patient is ready to go home. Low suspicion for any acute glaucoma, temporal arteritis, meningitis, intracranial hemorrhage, ischemic stroke, or fracture at this time. Patient is aware that his condition can change from initial presentation and that he needs to monitor symptoms closely for any acute changes. Conservative measures for symptoms. Recheck with your PCM in 2-3 days. Return to the ED with any worsening/concerning symptoms otherwise as reviewed in discharge. Patient is in agreement. - Vital Signs Vital signs: Temp Pulse Resp BP Pulse Ox 98.6 F 94 18 128/74 H 98 02/24/18 23:30 02/24/18 23:30 02/24/18 23:30 02/24/18 23:30 02/24/18 23:30 - Laboratory Result Diagrams: 02/24/18 23:10 02/24/18 23:10 Laboratory results interpreted by me: 02/24/18 23:10 Urine Protein 30 H Urine Bilirubin SMALL H Urine Urobilinogen 4.0 H Discharge - Discharge Clinical Impression: Headache Qualifiers: Headache type: unspecified Headache chronicity pattern: acute headache Intractability: not intractable Qualified Code(s): R51 - Headache Condition: Stable Disposition: HOME, SELF-CARE Instructions: Headache ([facility]) Additional Instructions: Rest, Ice/cool compresses Tylenol/ibuprofen as needed Light stretches daily Strength exercises as able Moist heat and massage may help F/u with your PCP in 3-5 days for a recheck Consider consult(s) with Orthopedics/physical therapy for ongoing/worsening symptoms Return to the ED with any worsening symptoms and/or development of fever, headache, changes in behavior/mentation/vision/speech, chest pain, palpitations , syncope, shortness of breath, trouble breathing, abdominal pain, n/v/d, blood in stool/urine, loss of control of bowel/bladder, urinary retention, muscle weakness/paralysis, saddle anesthesia, numbness/tingling, or other worsening symptoms that are concerning to you. Forms: Elevated Blood Pressure, Smoking Cessation Education Referrals: KENIA AYERS MD [NO LOCAL MD] - Follow up as needed
[2018-02-25 03:04] VITALS: BP 114/67
== END 2018-02-25 03:06 | disposition home or self-care (01) ==
LOC: ER 22:38
DX: R51 Headache (principal); R11.2 Nausea with vomiting, unspecified; Z79.899 Other long term (current) drug therapy; F17.200 Nicotine dependence, unspecified, uncomplicated; F95.2 Tourette's disorder
CPT/HCPCS: 99284; 96374; 96375; 36415; 85025; 80053; 81001; A9270; J1200; J1885; J0780

== ENCOUNTER 2018-02-27 20:51 | Emergency (ER) | payer MEDICARE, MEDICAID ==
[2018-02-27 21:35] VITALS: BP 128/85
[2018-02-27] MEDS ORDERED: LIDOCAINE 1% INJ-PF (10 MG/ML) 30 ML SDV INJ ONE (23:23)
--- NOTE | 2018-02-27 23:40 | RADIOLOGY REPORT (SQ) ---
EXAM DESCRIPTION: XR HAND 3 OR MORE VIEWS COMPLETED DATE/TME: 02/27/2018 00:00 CLINICAL HISTORY: 22 years, Male, LAC COMPARISON: None. FINDINGS: 3 views of the left hand. Wound involving the ulnar aspect of the third digit at the level of the third proximal phalanx. No radiopaque foreign body identified. No acute fracture or dislocation. Normal osseous mineralization. IMPRESSION: 1. No acute fracture or dislocation. 2010 [employer]- All Rights Reserved
--- NOTE | 2018-02-28 01:27 | ER Document Report ---
ED General - General Chief Complaint: Laceration Stated Complaint: FINGER LACERATION Time Seen by Provider: 02/27/18 23:13 Notes: Patient is a pleasant 22-year-old male who was sharpening a knife and accidentally cut the inside of his right proximal 3rd digit. Some venous oozing. No loss of distal sensation. Patient is able flex and extend the finger without difficulty. He has had a tetanus shot in the last 5 years. TRAVEL OUTSIDE OF THE [place] IN LAST 30 DAYS: No - Related Data Allergies/Adverse Reactions: No Known Allergies Allergy (Verified 02/27/18 22:25) Past Medical History - Social History Smoking Status: Current Every Day Smoker Chew tobacco use (# tins/day): No Frequency of alcohol use: None Drug Abuse: None Family History: Reviewed & Not Pertinent, Other - Mother with multiple sclerosis Patient has suicidal ideation: No Patient has homicidal ideation: No Neurological Medical History: Reports: Hx Seizures Renal/ Medical History: Denies: Hx Peritoneal Dialysis Musculoskeletal Medical History: Reports Hx Arthritis Psychiatric Medical History: Reports: Hx Anxiety, Hx Attention Deficit Hyperactivity Disorder, Hx Bipolar Disorder, Hx Depression, Hx Obsessive Compulsive Disorder, Hx Post Traumatic Stress Disorder, Hx Schizophrenia Traumatic Medical History: Reports: Hx Fractures Past Surgical History: Reports: Hx Herniorrhaphy - Immunizations Immunizations up to date: Yes Hx Diphtheria, Pertussis, Tetanus Vaccination: Yes Review of Systems - Review of Systems Notes: My Normal Review Basic REVIEW OF SYSTEMS: CONSTITUTIONAL : Denies fever, chills, or sweats. Denies recent illness. MUSCULOSKELETAL: Denies neck or back pain or joint pain or swelling. Laceration to right third digit. NEUROLOGICAL: Denies sensory or motor loss. ALL OTHER SYSTEMS REVIEWED AND NEGATIVE. Physical Exam - Vital signs Vitals: Temp Pulse Resp BP Pulse Ox 97.9 F 86 16 128/85 H 96 02/27/18 21:34 02/27/18 21:34 02/27/18 21:34 02/27/18 21:34 02/27/18 21:34 - Notes Notes: General Appearance: Well nourished, alert, cooperative, no acute distress, no obvious discomfort. Well-appearing. Vitals: reviewed, See vital signs table. Head: no swelling or tenderness to the head Eyes: PERRL, EOMI, Conjuctiva clear Mouth: No decreasd moisture Extremities: strength 5/5 in all extremities, good pulses in all extremities, patient has a 2 cm laceration on the radial side of the proximal right third digit. Small amount of venous oozing. Patient is able flex and extend the finger without difficulty. Good distal sensation. Skin: warm, dry, appropriate color, no rash Neuro: speech clear, oriented x 3, normal affect, responds appropriately to questions. Course - Re-evaluation Re-evalutation: 02/28/18 05:54 Laceration was thoroughly irrigated and cleaned and then sutured closed. Patient tolerated procedure without any complications. Patient to return in 7 days to have sutures removed. Patient to return to the ER immediately if he has any redness or swelling or signs of infection to the finger. Patient agrees with plan and was discharged home. Dictation of this chart was performed using voice recognition software; therefore, there may be some unintended grammatical errors. - Vital Signs Vital signs: Temp Pulse Resp BP Pulse Ox 97.9 F 86 16 128/85 H 96 02/27/18 21:34 02/27/18 21:34 02/27/18 21:34 02/27/18 21:34 02/27/18 21:34 Procedures - Laceration/Wound Repair right middle finger Wound length (cm): 2 Wound's Depth, Shape: Linear Anesthetic type: 1% Lidocaine Volume Anesthetic (mLs): 1 Wound explored: Clean Irrigated w/ Saline (mLs): 30 Wound Repaired With: Sutures Suture Size/Type: 5:0, Ethilon Number of Sutures: 5 Complications: No Discharge - Discharge Clinical Impression: Laceration Condition: Good Disposition: HOME, SELF-CARE Additional Instructions: LACERATION CARE: Your laceration has been sutured to keep the skin edges aligned during healing. The time of suture removal depends on the nature and location of your cut. Please follow the care instructions the doctor has outlined for you and return for further care, according to the schedule you've been given. Keep the wound and dressing clean. Unless you were told otherwise, you may shower daily, blotting the wound dry with a clean, unused towel. At other times, If the dressing gets wet or blood soaked, remove it and blot the wound dry, then reapply a new dressing. Unless you were instructed otherwise, dressings should be changed at least daily. If any signs of infection occur (swelling, redness, drainage, increasing tenderness, red streaks, tender lumps in the armpit or groin above the laceration, or fever), see the doctor immediately. SOAP CLEANSING: Gently wash the wound daily using a mild soap (like Ivory, Phisoderm, Neutrogena). Use warm water, rubbing gently until all debris, ooze, and crusting have been washed from the wound. Allow to dry briefly (about 10 minutes) after cleaning. Repeat this cleansing at least three times a day for the first two days and then once or twice a day. FOLLOW-UP CARE: Your sutures should be removed in ___7__ days. To facilitate a timely removal of your sutures, you may return to the Emergency Department at [facility]. You do not need to call for an appointment, but the best time to come in for suture removal is early in the morning. If you have been referred to another physician for follow-up care, call that physicians office for an appointment as you were instructed. If you experience a significant change in your laceration, or if you are concerned there may be an infection (swelling, redness, drainage, increasing tenderness, red streaks, tender lumps in the armpit or groin above the laceration, or fever) , return to the Emergency Department immediately re-evaluation.
== END 2018-02-28 01:29 | disposition home or self-care (01) ==
LOC: ER 20:51
DX: S61.212A Laceration without foreign body of right middle finger without damage to nail, initial encounter (principal); W26.0XXA Contact with knife, initial encounter; Y93.89 Activity, other specified; F17.200 Nicotine dependence, unspecified, uncomplicated
CPT/HCPCS: 99282

== ENCOUNTER 2018-03-06 14:50 | Emergency (ER) | payer MEDICARE, MEDICAID ==
[2018-03-06 15:14] VITALS: BP 120/67
--- NOTE | 2018-03-06 15:14 | ER Document Report ---
HPI - HPI Patient complains to provider of: Suture removal Onset: Other - 1 week Pain Level: Denies Context: 22-year-old male had his third left finger sutured between the second and third finger 7 days ago. Associated Symptoms: None Exacerbated by: Denies Relieved by: Denies Similar symptoms previously: No Recently seen / treated by doctor: No - ROS ROS below otherwise negative: Yes Systems Reviewed and Negative: Yes All other systems reviewed and negative - REPRODUCTIVE Reproductive: DENIES: : Past Medical History - General Information source: Patient - Social History Smoking Status: Current Some Day Smoker Frequency of alcohol use: None Drug Abuse: None Lives with: Family Family History: Reviewed & Not Pertinent, Other - Mother with multiple sclerosis Patient has suicidal ideation: No Patient has homicidal ideation: No Neurological Medical History: Reports: Hx Seizures Renal/ Medical History: Denies: Hx Peritoneal Dialysis Musculoskeletal Medical History: Reports Hx Arthritis Psychiatric Medical History: Reports: Hx Anxiety, Hx Attention Deficit Hyperactivity Disorder, Hx Bipolar Disorder, Hx Depression, Hx Obsessive Compulsive Disorder, Hx Post Traumatic Stress Disorder, Hx Schizophrenia Traumatic Medical History: Reports: Hx Fractures Past Surgical History: Reports: Hx Herniorrhaphy - Immunizations Immunizations up to date: Yes Hx Diphtheria, Pertussis, Tetanus Vaccination: Yes Vertical Provider Document - CONSTITUTIONAL Agree With Documented VS: Yes Exam Limitations: No Limitations - INFECTION CONTROL TRAVEL OUTSIDE OF THE [place] IN LAST 30 DAYS: No - MUSCULOSKELETAL/EXTREMETIES Musculoskeletal/Extremeties: MAEW, FROM - NEURO Level of Consciousness: Awake Motor/Sensory: No Motor Deficit, No Sensory Deficit - DERM Integumentary: Laceration - Mildly inflamed sutured laceration between his second and third left fingers no pus, ready to take out Discharge - Discharge Clinical Impression: Suture removal Condition: Good Disposition: HOME, SELF-CARE Instructions: Suture Removal Additional Instructions: keep covered at work to er any concerns
== END 2018-03-06 15:24 | disposition home or self-care (01) ==
LOC: ER 14:50
DX: S61.412D Laceration without foreign body of left hand, subsequent encounter (principal); X58.XXXD Exposure to other specified factors, subsequent encounter; F17.200 Nicotine dependence, unspecified, uncomplicated

== ENCOUNTER 2018-03-09 18:36 | Emergency (ER) | payer MEDICARE, MEDICAID ==
--- NOTE | 2018-03-09 20:22 | ER Document Report ---
ED General - General Chief Complaint: Wound Recheck Stated Complaint: REINJURED LACERATION Time Seen by Provider: 03/09/18 20:21 Mode of Arrival: Ambulatory Information source: Patient Notes: Patient presents with request for wound recheck. Patient had laceration to his left third digit near the base of the finger. Patient reports that sutures were removed 3 days ago. Patient reports that last night he believes he opened it again on accident. Patient denies any other symptoms. TRAVEL OUTSIDE OF THE [place] IN LAST 30 DAYS: No - Related Data Allergies/Adverse Reactions: No Known Allergies Allergy (Verified 02/27/18 22:25) Past Medical History - General Information source: Patient - Social History Smoking Status: Never Smoker Frequency of alcohol use: None Drug Abuse: None Lives with: Family Family History: Reviewed & Not Pertinent, Other - Mother with multiple sclerosis Neurological Medical History: Reports: Hx Seizures Renal/ Medical History: Denies: Hx Peritoneal Dialysis Musculoskeletal Medical History: Reports Hx Arthritis Psychiatric Medical History: Reports: Hx Anxiety, Hx Attention Deficit Hyperactivity Disorder, Hx Bipolar Disorder, Hx Depression, Hx Obsessive Compulsive Disorder, Hx Post Traumatic Stress Disorder, Hx Schizophrenia Traumatic Medical History: Reports: Hx Fractures Past Surgical History: Reports: Hx Herniorrhaphy - Immunizations Immunizations up to date: Yes Hx Diphtheria, Pertussis, Tetanus Vaccination: Yes Review of Systems - Review of Systems Constitutional: No symptoms reported EENT: No symptoms reported Cardiovascular: No symptoms reported Respiratory: No symptoms reported Gastrointestinal: No symptoms reported Genitourinary: No symptoms reported Male Genitourinary: No symptoms reported Musculoskeletal: No symptoms reported Skin: See HPI Hematologic/Lymphatic: No symptoms reported Neurological/Psychological: No symptoms reported Physical Exam - Vital signs Vitals: Temp Pulse Resp BP Pulse Ox 98.5 F 65 18 111/70 96 03/09/18 18:52 03/09/18 18:52 03/09/18 18:52 03/09/18 18:52 03/09/18 18:52 - Notes Notes: PHYSICAL EXAMINATION: GENERAL: Well-appearing, well-nourished and in no acute distress. HEAD: Atraumatic, normocephalic. NECK: Normal range of motion. LUNGS: Breath sounds clear to auscultation bilaterally and equal. No wheezes rales or rhonchi. HEART: Regular rate and rhythm without murmurs Musculoskeletal: Normal range of motion, no pitting or edema. No cyanosis. NEUROLOGICAL: Cranial nerves grossly intact. Normal speech, normal gait. Normal sensory, motor exams PSYCH: Normal mood, normal affect. SKIN: Warm, Dry, normal turgor, no rashes or lesions noted. Healing wound to left middle finger near base of second and third digits. Course - Re-evaluation Re-evalutation: We will Place Steri-Strips in between second and third digit on the right hand and then riya tape the fingers together. - Vital Signs Vital signs: Temp Pulse Resp BP Pulse Ox 98.5 F 65 18 111/70 96 03/09/18 18:52 03/09/18 18:52 03/09/18 18:52 03/09/18 18:52 03/09/18 18:52 Discharge - Discharge Clinical Impression: Visit for wound check Condition: Stable Disposition: HOME, SELF-CARE Additional Instructions: ORAL LACERATION, NOT SUTURED: The laceration in your mouth was not sutured because the physician felt it would heal well without it. Suturing does increase the risk of infection somewhat, as germs in the wound are trapped inside. Most cuts in the mouth heal quickly with no significant scar. The wound will appear white and rough tomorrow. This unusual appearance is normal for an oral laceration, and will persist until healing is complete. You should rest for 24 hours to minimize swelling. Avoid tart or spicy foods, or hard foods which might stick in the cut (like tortilla chips), for a few days. If any signs of infection occur (swelling, redness of the skin directly over the laceration area, increasing tenderness, tender lumps below the jaw or on the sides of the neck, or fever), see the doctor immediately. Please keep the Steri-Strips clean and dry. Allow the Steri-Strips to fall off on their own. This should occur in the next 10-14 days. Please return to the emergency department if you develop foul-smelling drainage, erythema, or increased pain to the wound. If you have been referred to another physician for follow-up care, call that physicians office for an appointment as you were instructed. If you experience a significant change in your laceration, or if you are concerned there may be an infection (swelling, redness, drainage, increasing tenderness, red streaks, tender lumps in the armpit or groin above the laceration, or fever) , return to the Emergency Department immediately re-evaluation.
[2018-03-09 21:18] VITALS: BP 104/60
== END 2018-03-09 21:05 | disposition home or self-care (01) ==
LOC: ER 18:36
DX: S61.213D Laceration without foreign body of left middle finger without damage to nail, subsequent encounter (principal); X58.XXXD Exposure to other specified factors, subsequent encounter
CPT/HCPCS: 99282

== ENCOUNTER 2019-05-01 00:47 | Emergency (ER) | payer MEDICARE, MEDICAID ==
[2019-05-01 01:32] LABS: ABSOLUTE BASOPHILS # (AUTO) 0.1 10^3/uL (0.0-0.2); ABSOLUTE EOSINOPHILS # (AUTO) 0.2 10^3/uL (0.0-0.6); ABSOLUTE LYMPHOCYTES (AUTO) 1.7 10^3/uL (0.5-4.7); ABSOLUTE MONOCYTES (AUTO) 0.7 10^3/uL (0.1-1.4); ABSOLUTE NEUT (AUTO) 4.1 10^3/uL (1.7-8.2); BASOPHILS % (AUTO) 0.9 % (0-2); EOSINOPHILS % (AUTO) 2.2 % (0-6); HEMATOCRIT 45.2 % (37.9-51.0); HEMOGLOBIN 15.5 g/dL (13.5-17.0); LYMPHOCYTES % (AUTO) 25.2 % (13-45); MEAN CORPUSCULAR HEMOGLOBIN 30.6 pg (27.0-33.4); MEAN CORPUSCULAR HGB CONC 34.4 g/dL (32.0-36.0); MEAN CORPUSCULAR VOLUME 89 fl (80-97); PLATELET COUNT 136 10^3/uL (150-450); RED BLOOD COUNT 5.07 10^6/uL (4.35-5.55); RED CELL DISTRIBUTION WIDTH 13.2 % (11.5-14.0); SEGMENTED NEUTROPHILS % (AUTO) 60.7 % (42-78); TOTAL CELLS COUNTED % (AUTO) 100 %; WHITE BLOOD COUNT 6.7 10^3/uL (4.0-10.5)
[2019-05-01 01:49] LABS: ALBUMIN 4.4 g/dL (3.5-5.0); ALKALINE PHOSPHATASE 75 U/L (38-126); ANION GAP 10 (5-19); ASPARTATE AMINO TRANSFERASE 34 U/L (17-59); BILIRUBIN,DIRECT 0.1 mg/dL (0.0-0.4); BILIRUBIN,TOTAL 0.6 mg/dL (0.2-1.3); BLOOD UREA NITROGEN 10 mg/dL (7-20); CALCIUM 9.5 mg/dL (8.4-10.2); CARBON DIOXIDE 27 mmol/L (22-30); CHLORIDE 102 mmol/L (98-107); GLUCOSE 90 mg/dL (75-110); POTASSIUM 4.2 mmol/L (3.6-5.0); TOTAL PROTEIN 7.1 g/dL (6.3-8.2)
[2019-05-01 01:50] LABS: ACETAMINOPHEN < 10 ug/mL (10-30); ALCOHOL < 10 mg/dL (NONE DETECTED); SALICYLATE < 1.0 mg/dL (2.0-20.0)
[2019-05-01 02:00] LABS: APPEARANCE,URINE CLEAR; BILIRUBIN,URINE NEGATIVE (NEGATIVE); COLOR,URINE YELLOW; GLUCOSE, URINE NEGATIVE (NEGATIVE); KETONES,URINE NEGATIVE (NEGATIVE); LEUKOCYTE ESTERASE,URINE NEGATIVE (NEGATIVE); NITRITE,URINE NEGATIVE (NEGATIVE); PROTEIN,URINE NEGATIVE (NEGATIVE); URINE SPECIFIC GRAVITY 1.019
[2019-05-01 02:20] LABS: ADD MANUAL MICROSCOPIC YES
[2019-05-01 02:21] LABS: RBC,URINE RARE /HPF; WBC,URINE RARE /HPF
[2019-05-01 02:25] LABS: URINE AMPHETAMINES SCREEN NEGATIVE; URINE BARBITURATES SCREEN NEGATIVE; URINE BENZODIAZEPINES SCREEN NEGATIVE; URINE COCAINE SCREEN NEGATIVE; URINE MARIJUANA (THC) SCREEN NEGATIVE; URINE METHADONE SCREEN NEGATIVE; URINE PHENCYCLIDINE SCREEN NEGATIVE
--- NOTE | 2019-05-01 03:16 | ER Document Report ---
ED General - General Chief Complaint: Psych Problem Stated Complaint: PSYCH Time Seen by Provider: 05/01/19 03:15 Notes: Patient is a 24-year-old male that presents to the emergency department for chief complaint of suicidal ideation and depressive thoughts. Patient states that earlier today he was feeling suicidal, and continues to have depressive thoughts, he states he does not have a specific plan at this time, states he said depression, is not currently taking any medications, states his been prescribed medications, is not currently seeing a counselor. Denies any alcohol or illicit drug use. Denies any self injury. He states that he did not have anyone to watch him at home, to make sure that he is safe, and he felt more comfortable coming to the emergency department, [facility] was contacted and came with the patient to the emergency department. Past Medical History: ADHD, depression Past Surgical History: Hernia repair Social History: Denies tobacco, alcohol or drug use. Family History: Reviewed and noncontributory for presenting illness Allergies: Reviewed, see documented allergy list. REVIEW OF SYSTEMS: Other than noted above, the 12 point review of systems was reviewed with the patient and were negative, all pertinent findings are included in the HPI. PHYSICAL EXAMINATION: Vital signs reviewed, nursing noted reviewed. GENERAL: Well-appearing, well-nourished and in no acute distress. HEAD: Atraumatic, normocephalic. EYES: Eyes appear normal, extraocular movements intact, sclera anicteric, conjunctiva are normal. ENT: nares patent, oropharynx clear without exudates. Moist mucous membranes. NECK: Normal range of motion, supple without lymphadenopathy LUNGS: Breath sounds clear to auscultation bilaterally and equal. No wheezes rales or rhonchi. HEART: Regular rate and rhythm without murmurs ABDOMEN: Soft, nontender, normoactive bowel sounds. No rebound, guarding, or rigidity. No masses appreciated. EXTREMITIES: Nontender, good range of motion, no pitting or edema. NEUROLOGICAL: No focal neurological deficits. Moves all extremities spontaneously Motor and sensory grossly intact on exam. PSYCH: Flat affect, dysphoric mood, poor eye contact on exam. SKIN: Warm, Dry, normal turgor, no rashes or lesions noted on exposed skin TRAVEL OUTSIDE OF THE [place] IN LAST 30 DAYS: No - Related Data Allergies/Adverse Reactions: No Known Allergies Allergy (Verified 02/27/18 22:25) Past Medical History - Social History Smoking Status: Former Smoker Chew tobacco use (# tins/day): No Frequency of alcohol use: None Drug Abuse: None Family History: Reviewed & Not Pertinent, Other - Mother with multiple sclerosis Patient has suicidal ideation: Yes Patient has homicidal ideation: Yes Neurological Medical History: Reports: Hx Seizures Renal/ Medical History: Denies: Hx Peritoneal Dialysis Musculoskeletal Medical History: Reports Hx Arthritis Psychiatric Medical History: Reports: Hx Anxiety, Hx Attention Deficit Hyperactivity Disorder, Hx Bipolar Disorder, Hx Depression, Hx Obsessive Compulsive Disorder, Hx Post Traumatic Stress Disorder, Hx Schizophrenia Traumatic Medical History: Reports: Hx Fractures Past Surgical History: Reports: Hx Herniorrhaphy - Immunizations Immunizations up to date: Yes Hx Diphtheria, Pertussis, Tetanus Vaccination: Yes Physical Exam - Vital signs Vitals: Temp Pulse Resp BP Pulse Ox 98.9 F 76 16 117/73 97 05/01/19 00:48 05/01/19 00:48 05/01/19 00:48 05/01/19 00:48 05/01/19 00:48 Course - Re-evaluation Re-evalutation: Patient seen and examined, vital signs reviewed. Medical screening testing was ordered including bloodwork, EKG, and toxicology. Results of testing were reviewed. Testing demonstrated unremarkable blood work. Patient has been stable from a hemodynamic standpoint. At this point I feel that the patient is medically cleared and can be further evaluated from a psychiatric standpoint for final disposition from the emergency department. Patient updated on plan of care. Laboratory 05/01/19 05/01/19 05/01/19 01:10 01:10 01:10 WBC 6.7 RBC 5.07 Hgb 15.5 Hct 45.2 MCV 89 MCH 30.6 MCHC 34.4 RDW 13.2 Plt Count 136 L Lymph % (Auto) 25.2 [place] % (Auto) 11.0 Eos % (Auto) 2.2 Baso % (Auto) 0.9 Absolute Neuts (auto) 4.1 Absolute Lymphs (auto) 1.7 Absolute Monos (auto) 0.7 Absolute Eos (auto) 0.2 Absolute Basos (auto) 0.1 Seg Neutrophils % 60.7 Sodium 139.4 Potassium 4.2 Chloride 102 Carbon Dioxide 27 Anion Gap 10 BUN 10 Creatinine 0.89 Est GFR ( Amer) > 60 Est GFR (MDRD) Non-Af > 60 Glucose 90 Calcium 9.5 Total Bilirubin 0.6 Direct Bilirubin 0.1 Neonat Total Bilirubin Not Reportable Neonat Direct Bilirubin Not Reportable Neonat Indirect Bili Not Reportable AST 34 ALT 44 Alkaline Phosphatase 75 Total Protein 7.1 Albumin 4.4 Urine Color YELLOW Urine Appearance CLEAR Urine pH 7.0 Ur Specific [place] 1.019 Urine Protein NEGATIVE Urine Glucose (UA) NEGATIVE Urine Ketones NEGATIVE Urine Blood NEGATIVE Urine Nitrite NEGATIVE Urine Bilirubin NEGATIVE Urine Urobilinogen 2.0 H Ur Leukocyte Esterase NEGATIVE Urine RBC RARE Urine WBC RARE Urine Mucus 2+ Urine Ascorbic Acid NEGATIVE Salicylates < 1.0 L Urine Opiates Screen Urine Methadone Screen Acetaminophen < 10 L Ur Barbiturates Screen Ur Phencyclidine Scrn Ur Amphetamines Screen U Benzodiazepines Scrn Urine Cocaine Screen U Marijuana (THC) Screen Serum Alcohol < 10 05/01/19 01:10 WBC RBC Hgb Hct MCV MCH MCHC RDW Plt Count Lymph % (Auto) [place] % (Auto) Eos % (Auto) Baso % (Auto) Absolute Neuts (auto) Absolute Lymphs (auto) Absolute Monos (auto) Absolute Eos (auto) Absolute Basos (auto) Seg Neutrophils % Sodium Potassium Chloride Carbon Dioxide Anion Gap BUN Creatinine Est GFR ( Amer) Est GFR (MDRD) Non-Af Glucose Calcium Total Bilirubin Direct Bilirubin Neonat Total Bilirubin Neonat Direct Bilirubin Neonat Indirect Bili AST ALT Alkaline Phosphatase Total Protein Albumin Urine Color Urine Appearance Urine pH Ur Specific [place] Urine Protein Urine Glucose (UA) Urine Ketones Urine Blood Urine Nitrite Urine Bilirubin Urine Urobilinogen Ur Leukocyte Esterase Urine RBC Urine WBC Urine Mucus Urine Ascorbic Acid Salicylates Urine Opiates Screen NEGATIVE Urine Methadone Screen NEGATIVE Acetaminophen Ur Barbiturates Screen NEGATIVE Ur Phencyclidine Scrn NEGATIVE Ur Amphetamines Screen NEGATIVE U Benzodiazepines Scrn NEGATIVE Urine Cocaine Screen NEGATIVE U Marijuana (THC) Screen NEGATIVE Serum Alcohol - Vital Signs Vital signs: Temp Pulse Resp BP Pulse Ox 98.9 F 76 16 117/73 97 05/01/19 00:48 05/01/19 00:48 05/01/19 00:48 05/01/19 00:48 05/01/19 00:48 - Laboratory Result Diagrams: 05/01/19 01:10 05/01/19 01:10 Laboratory results interpreted by me: 05/01/19 05/01/19 05/01/19 01:10 01:10 01:10 Plt Count 136 L Urine Urobilinogen 2.0 H Salicylates < 1.0 L Acetaminophen < 10 L - EKG Interpretation by Me Additional EKG results interpreted by me: EKG demonstrates sinus rhythm with a ventricular rate of 66 bpm, normal axis, normal intervals, early re-pole noted, compared with prior EKG from 08/05/2017, without significant change. Discharge - Discharge Clinical Impression: Suicidal ideations Condition: Stable Disposition: PSYCH HOSP/UNIT
--- NOTE | 2019-05-01 08:48 | EKG REPORT ---
SEVERITY:- ABNORMAL ECG - SINUS RHYTHM ST ELEVATION SUGGESTS PERICARDITIS CORELATE CLINICALLY : Confirmed by: Christine Miles MD 01-May-2019 08:47:13
--- NOTE | 2019-05-01 10:34 | ER Document Report ---
Doctor's Note Notes: 05/01/19 10:33 I have evaluated this pt. this am and he has no c/o at this time. He feels all of his needs are being met and his physical exam is normal. He is awaiting disposition per mental health.
--- NOTE | 2019-05-01 11:58 | PSYCHOLOGICAL NOTE ---
Psych Note - Psych Note Date seen by psych provider: 05/01/19 Time seen by psych provider: 07:50 Psych Note: Reason for Consult:Suicidal ideation Patient presents with mobile crisis, reports SI and HI with a history of self harm. Patient reports that he was brought [facility] because "my dad would not watch me because they were worried I would hurt myself." Patient denies any thoughts of wanting to harm himself currently. He reports that he would like to get back on medications and does not have a current outpatient mental health provider. When discussing his trigger the previous evening in regards to thoughts of wanting to harm himself he states "I just got too deep into my thoughts thinking that everyone was against me and everybody hates me." Clinician spoke with patient's father, Moisés, who reports that the patient just returned to the local area after being out of state for the last 6 to 8 months with his girlfriend. He reports that he has been having difficulty reconnecting with friends as well they are friends on Facebook they do not have time to truly reengage in a friendship. He reports the patient is always had difficulties with making friends. He continued to report that yesterday the patient went to [facility] to get food stamps and to establish Medicaid. He reports that after that the family went out to dinner and the patient's presentation was "his normal manic self but not bad." He states the last few days he has been this way however "he is not violent or dangerous just emotional." Patient was alert and oriented to person, place, time and circumstance. Mood was calm and euthymic. Affect was mood congruent. Delusions are absent and behavioral is congruent with an intact reality based presentation ie organized and linear thought processes. Patient did not appear to be responding to external stimuli as evidenced by being able to maintain appropriate eye contact and conversational tone, rate and prosody. Thought processes were linear, rational and organized. Intellectual abilities were estimated within average ran ge. Attention and concentration were within normal limits. Insight judgment and impulse control were fair. Bipolar and Related disorder, by history Medication recommendations at this time Impression\\plan: Patient is cleared from acute psychiatric services. Patient denies thoughts of wanting to harm himself currently and reports experiencing passive suicidal ideation i.e. no plans means or intent previous evening. Patient is well-known to the behavioral health team and has a long history of poor coping. Patient typically has used coming to [facility] ED as a form of coping when fighting with family. Patient is not presenting manic i.e. no psychomotor agitation, normal conversational speech, maintains good eye contact and delusions are absent. Patient is encouraged to reengage with outpatient mental health services in the form of medication management and therapy to help him interpret his environment, build positive coping skills and understanding triggers. Patient would benefit from psychosocial rehabilitation. The behavioral health team was able to secure an appointment with [facility] for 05/06/[address] Navarrete was consulted on the care and management of this patient; attending physician is in agreement with recommendations and disposition.
[2019-05-01 12:28] VITALS: BP 112/74
== END 2019-05-01 12:28 | disposition home or self-care (01) ==
LOC: ER 00:47
DX: F31.9 Bipolar disorder, unspecified (principal); R45.851 Suicidal ideations; Z87.891 Personal history of nicotine dependence; R45.850 Homicidal ideations
CPT/HCPCS: 36415; 80053; 80307; 81001; 85025; 93005; 93010; 99285

== ENCOUNTER 2019-05-20 17:38 | Emergency (ER) | payer MEDICARE, OTHER ==
[2019-05-20 18:13] LABS: ABSOLUTE BASOPHILS # (AUTO) 0.1 10^3/uL (0.0-0.2); ABSOLUTE EOSINOPHILS # (AUTO) 0.2 10^3/uL (0.0-0.6); ABSOLUTE LYMPHOCYTES (AUTO) 1.9 10^3/uL (0.5-4.7); ABSOLUTE MONOCYTES (AUTO) 0.7 10^3/uL (0.1-1.4); ABSOLUTE NEUT (AUTO) 5.8 10^3/uL (1.7-8.2); BASOPHILS % (AUTO) 0.9 % (0-2); EOSINOPHILS % (AUTO) 2.6 % (0-6); HEMATOCRIT 44.1 % (37.9-51.0); HEMOGLOBIN 15.2 g/dL (13.5-17.0); LYMPHOCYTES % (AUTO) 21.9 % (13-45); MEAN CORPUSCULAR HEMOGLOBIN 30.9 pg (27.0-33.4); MEAN CORPUSCULAR HGB CONC 34.5 g/dL (32.0-36.0); MEAN CORPUSCULAR VOLUME 90 fl (80-97); MONOCYTES % (AUTO) 8.4 % (3-13); PLATELET COUNT 157 10^3/uL (150-450); RED BLOOD COUNT 4.93 10^6/uL (4.35-5.55); RED CELL DISTRIBUTION WIDTH 13.5 % (11.5-14.0); SEGMENTED NEUTROPHILS % (AUTO) 66.2 % (42-78); TOTAL CELLS COUNTED % (AUTO) 100 %; WHITE BLOOD COUNT 8.8 10^3/uL (4.0-10.5)
[2019-05-20 18:36] LABS: ALBUMIN 4.2 g/dL (3.5-5.0); ALKALINE PHOSPHATASE 79 U/L (38-126); ANION GAP 9 (5-19); ASPARTATE AMINO TRANSFERASE 22 U/L (17-59); BILIRUBIN,DIRECT 0.1 mg/dL (0.0-0.4); BILIRUBIN,TOTAL 0.5 mg/dL (0.2-1.3); BLOOD UREA NITROGEN 9 mg/dL (7-20); CALCIUM 9.4 mg/dL (8.4-10.2); CARBON DIOXIDE 25 mmol/L (22-30); CHLORIDE 104 mmol/L (98-107); GLUCOSE 94 mg/dL (75-110); TOTAL PROTEIN 7.1 g/dL (6.3-8.2)
[2019-05-20 18:37] LABS: ACETAMINOPHEN < 10 ug/mL (10-30); ALCOHOL < 10 mg/dL (NONE DETECTED); SALICYLATE < 1.0 mg/dL (2.0-20.0)
--- NOTE | 2019-05-20 18:45 | ER Document Report ---
ED Psych Disorder / Suicide - General Chief Complaint: Psych Problem Stated Complaint: IVC W/PAPERS Time Seen by Provider: 05/20/19 17:48 Notes: Patient is a 24-year-old male who presents emergency department with homicidal and suicidal ideation. He denies any plan for suicidal ideation, but would not elaborate on homicidal ideation plans. He states that he was at his therapist and next thing he knew the employment program representative were there. According to the IVC paperwork the patient is bipolar and has PTSD. According to the IVC he wants to kill his brother. He has apparently not been taking his medication, but the patient states that he takes Abilify. Patient states that he has Tourette's. He denies any pain, or any other symptoms. TRAVEL OUTSIDE OF THE U[place]S. IN LAST 30 DAYS: No - Related Data Allergies/Adverse Reactions: No Known Allergies Allergy (Verified 02/27/18 22:25) Past Medical History - Social History Smoking Status: Unknown if Ever Smoked Family History: Reviewed & Not Pertinent, Other - Mother with multiple sclerosis Neurological Medical History: Reports: Hx Seizures Renal/ Medical History: Denies: Hx Peritoneal Dialysis Musculoskeletal Medical History: Reports Hx Arthritis Psychiatric Medical History: Reports: Hx Anxiety, Hx Attention Deficit Hyperactivity Disorder, Hx Bipolar Disorder, Hx Depression, Hx Obsessive Compulsive Disorder, Hx Post Traumatic Stress Disorder, Hx Schizophrenia Traumatic Medical History: Reports: Hx Fractures Past Surgical History: Reports: Hx Herniorrhaphy - Immunizations Immunizations up to date: Yes Hx Diphtheria, Pertussis, Tetanus Vaccination: Yes Review of Systems - Review of Systems Notes: REVIEW OF SYSTEMS: CONSTITUTIONAL : Denies recent illness. Denies recent unintentional weight loss. Denies fever, chills, or sweats. EENT: Denies eye, ear, throat, or mouth pain, discharge, or symptoms. Denies nasal or sinus congestion. CARDIOVASCULAR: Denies chest pain. RESPIRATORY: Denies shortness of breath, cough, congestion, difficulty breathing, or wheezing. GASTROINTESTINAL: Denies nausea, vomiting, and diarrhea. Denies abdominal pain. Denies constipation. GENITOURINARY: Denies difficulty urinating, burning, blood in urine, urgency or frequency. MUSCULOSKELETAL: Denies neck and back pain. Denies joint pain or swelling. SKIN: Denies rash, itchiness, or lesions HEMATOLOGIC : Denies easy bruising or bleeding. LYMPHATIC: Denies swollen, painful, enlarged glands. NEUROLOGICAL: Denies no numbness or tingling denies weakness. Denies headache. Denies altered mental status. Denies alteration in speech. PSYCHIATRIC: See HPI. All other systems reviewed and negative. Physical Exam - Notes Notes: PHYSICAL EXAMINATION: GENERAL: Appears well, healthy, well-nourished, no acute distress. HEAD: Normocephalic, atraumatic. EYES: PERRL, conjunctiva normal, all extraocular movements intact, sclera nonicteric ENT: Moist mucous membranes. NECK: Supple, no noticeable swelling, redness, rash. Normal range of motion. LUNGS: Equal breath sounds bilaterally and clear to auscultation. No wheezes rales or rhonchi. CARDIOVASCULAR: S1-S2, regular rate, regular rhythm. Radial pulses 2+, normal. ABDOMEN: Normoactive bowel sounds. Soft, nontender, no guarding, no rebound tenderness, and no masses palpated. EXTREMITIES: Normal strength and range of motion, no pitting or edema. No cyanosis. NEUROLOGICAL: Moves all extremities upon command. Strength 5/5 in all extremities. PSYCH: Talkative, flat affect. SKIN: Warm, dry. No rash, lesions, ulcerations noted. Normal skin turgor. Course - Re-evaluation Re-evalutation: 05/20/19 19:25 Labs are all normal. Urinalysis is normal. Toxicology is all negative. Patient is clear for mental health evaluation. He takes Abilify, but cannot recall how much he takes. - Laboratory Result Diagrams: 05/20/19 17:59 05/20/19 17:59 Laboratory results interpreted by me: 05/20/19 17:59 Salicylates < 1.0 L Acetaminophen < 10 L - EKG Interpretation by Me Additional EKG results interpreted by me: 05/20/19 18:44 Sinus rhythm. Rate 65. PA 180; QRS 82; QT 380; QTc 396. No ST elevations or depressions noted. Discharge - Discharge Clinical Impression: Suicidal ideation, Homicidal ideation Disposition: PSYCH HOSP/UNIT
[2019-05-20 18:51] LABS: APPEARANCE,URINE CLEAR; BILIRUBIN,URINE NEGATIVE (NEGATIVE); COLOR,URINE YELLOW; GLUCOSE, URINE NEGATIVE (NEGATIVE); KETONES,URINE NEGATIVE (NEGATIVE); LEUKOCYTE ESTERASE,URINE NEGATIVE (NEGATIVE); NITRITE,URINE NEGATIVE (NEGATIVE); PROTEIN,URINE NEGATIVE (NEGATIVE); UROBILINOGEN,URINE NEGATIVE mg/dL (<2.0)
[2019-05-20 19:10] LABS: URINE AMPHETAMINES SCREEN NEGATIVE; URINE BARBITURATES SCREEN NEGATIVE; URINE BENZODIAZEPINES SCREEN NEGATIVE; URINE COCAINE SCREEN NEGATIVE; URINE MARIJUANA (THC) SCREEN NEGATIVE; URINE METHADONE SCREEN NEGATIVE; URINE PHENCYCLIDINE SCREEN NEGATIVE
--- NOTE | 2019-05-20 19:53 | EKG REPORT ---
SEVERITY:- NORMAL ECG - SINUS RHYTHM : Confirmed by: Christine Miles MD 20-May-2019 19:53:07
[2019-05-21 07:50] VITALS: BP 102/73
--- NOTE | 2019-05-21 09:36 | PSYCHOLOGICAL NOTE ---
Psych Note - Psych Note Date seen by psych provider: 05/21/19 Psych Note: Medication recommendation made by the psychiatric medication provider, Dr. Iman MD., includes: Add Abilify 5MG PO once now (usually takes at night, did not get last night, has had the past few days otherwise) Impression/Plan: Patient is cleared from acute psychiatric services. Recommendation to rescind IVC. Patient alert and oriented x5 with linear thinking, future/forward/goal oriented thinking when talking about getting his Abilify injection today and SSI situated, he denied current SI/HI and was able to identify increased stress as trigger, presented euthymic and hypomanic which is baseline (father even said in previous ED visit manic is baseline), had fair eye contact, and was able to engage and carry on dialogue conversation which was within normal limits for rate/tone/prosody. Father Moisés included in plan of care, provided transportation, go to [facility] for SSI/Medicaid then to [place] by 1430 for Abilify Injection. [place] confirmed this appointment is still in place. Consulted with Dr. Navarrete regarding the management and care of patient. ED Physician in agreement with recommendations.
[2019-05-21] MEDS ORDERED: ARIPIPRAZOLE 5 MG TABLET PO ONE (10:13)
== END 2019-05-21 11:06 | disposition home or self-care (01) ==
LOC: ER 17:38
DX: R45.851 Suicidal ideations (principal); R45.850 Homicidal ideations; F31.9 Bipolar disorder, unspecified; F43.10 Post-traumatic stress disorder, unspecified; Z91.14 Patient's other noncompliance with medication regimen
CPT/HCPCS: 93005; 36415; 80307 ×4; 85025; 80053; 81001; 93010; A9270

== ENCOUNTER 2019-06-30 21:03 | Emergency (ER) | payer MEDICARE, MEDICAID ==
--- NOTE | 2019-06-30 21:14 | ER Document Report ---
ED Medical Screen (RME) - General Chief Complaint: Weakness Stated Complaint: ABDOMINAL PAIN/WEAK/VOMITING/CHEST PRESSURE Time Seen by Provider: 06/30/19 21:14 TRAVEL OUTSIDE OF THE U.[place] IN LAST 30 DAYS: No - HPI Notes: 06/30/19 24-year-old male to the emergency department with complaints of upper abdominal pain that feels like his abdomen is on "fire" again today. He states that he is associated nausea and vomiting. He is tried to eat several times today because he states he feels he is hungry but every time he tries to eat he throws up. He also describes left-sided headache with some left-sided full body tingling. He also states that he has SIstates that he has had suicidal ideation for most of his life and on a daily basis. He also states that there is no medicine in the world is going to take away his suicidal ideations. Performed a brief medical screening exam on patient and determined that he will need further management by main side ER physician and have placed initial orders to aid in his treatment plan. - Related Data Allergies/Adverse Reactions: No Known Allergies Allergy (Verified 06/30/19 21:11) Past Medical History Neurological Medical History: Reports: Hx Seizures Renal/ Medical History: Denies: Hx Peritoneal Dialysis Musculoskeltal Medical History: Reports Hx Arthritis Psychiatric Medical History: Reports: Hx Anxiety, Hx Attention Deficit Hyperactivity Disorder, Hx Bipolar Disorder, Hx Depression, Hx Obsessive Compulsive Disorder, Hx Post Traumatic Stress Disorder, Hx Schizophrenia Traumatic Medical History: Reports: Hx Fractures Past Surgical History: Reports: Hx Herniorrhaphy - Immunizations Immunizations up to date: Yes Hx Diphtheria, Pertussis, Tetanus Vaccination: Yes Physical Exam - Vital signs Vitals: Temp Pulse Resp BP Pulse Ox 98.1 F 84 18 129/83 H 97 06/30/19 21:12 06/30/19 21:12 06/30/19 21:12 06/30/19 21:12 06/30/19 21:12 Course - Vital Signs Vital signs: Temp Pulse Resp BP Pulse Ox 98.1 F 84 18 129/83 H 97 06/30/19 21:12 06/30/19 21:12 06/30/19 21:12 06/30/19 21:12 06/30/19 21:12
[2019-06-30] MEDS ORDERED: FAMOTIDINE INJ/PF 20 MG/2 ML SDV IV ONE (21:15)
[2019-06-30] MEDS ORDERED: ONDANSETRON HCL INJ/PF 4 MG/2 ML SDV IV ONE (21:15)
[2019-06-30] MEDS ORDERED: NORMAL SALINE 1000 ML 1,000 ML IV ONE (21:16)
--- NOTE | 2019-06-30 22:16 | ER Document Report ---
ED General - General Chief Complaint: Abdominal Pain Stated Complaint: ABDOMINAL PAIN/WEAK/VOMITING/CHEST PRESSURE Time Seen by Provider: 06/30/19 21:14 TRAVEL OUTSIDE OF THE [place] IN LAST 30 DAYS: No - HPI Patient complains to provider of: abd pain Notes: 24 y/o presenting to ED for evaluation of generalized abdominal pain that he describes as if "someone has a campfire in my stomach." he reports nausea/vomiting all day with attempted eating of pancakes and drinking of soda. he denies change to BM's he denies h/o abdominal surgery the pain is nonspecific and does not localize he states it started today and yesterday was normal he denies urinary pain he denies back pain he denies blood in emesis, stool, or urine - Related Data Allergies/Adverse Reactions: No Known Allergies Allergy (Verified 06/30/19 21:11) Past Medical History - Social History Smoking Status: Former Smoker Chew tobacco use (# tins/day): No Frequency of alcohol use: Occasional Drug Abuse: Marijuana Family History: Reviewed & Not Pertinent, Other - Mother with multiple sclerosis Patient has suicidal ideation: Yes Patient has homicidal ideation: No Neurological Medical History: Reports: Hx Seizures Renal/ Medical History: Denies: Hx Peritoneal Dialysis Musculoskeletal Medical History: Reports Hx Arthritis Psychiatric Medical History: Reports: Hx Anxiety, Hx Attention Deficit Hyperactivity Disorder, Hx Bipolar Disorder, Hx Depression, Hx Obsessive Compulsive Disorder, Hx Post Traumatic Stress Disorder, Hx Schizophrenia Traumatic Medical History: Reports: Hx Fractures Past Surgical History: Reports: Hx Herniorrhaphy - Immunizations Immunizations up to date: Yes Hx Diphtheria, Pertussis, Tetanus Vaccination: Yes Review of Systems - Review of Systems Constitutional: No symptoms reported EENT: No symptoms reported Cardiovascular: No symptoms reported Respiratory: No symptoms reported Gastrointestinal: Abdominal pain, Nausea, Vomiting. denies: Abdomen distended, Diarrhea Genitourinary: No symptoms reported Male Genitourinary: No symptoms reported Musculoskeletal: No symptoms reported Skin: No symptoms reported Hematologic/Lymphatic: No symptoms reported Neurological/Psychological: No symptoms reported Physical Exam - Vital signs Vitals: Temp Pulse Resp BP Pulse Ox 98.1 F 84 18 129/83 H 97 06/30/19 21:12 06/30/19 21:12 06/30/19 21:12 06/30/19 21:12 06/30/19 21:12 Interpretation: Normal - General General appearance: Appears well, Alert - HEENT Head: Normocephalic, Atraumatic Eyes: Normal Pupils: PERRL Mucous membranes: Moist Pharynx: Normal Neck: Normal - Respiratory Respiratory status: No respiratory distress Chest status: Nontender Breath sounds: Normal Chest palpation: Normal - Cardiovascular Rhythm: Regular Heart sounds: Normal auscultation Murmur: No - Abdominal Inspection: Normal Distension: No distension Bowel sounds: Normal Tenderness: Nontender Organomegaly: No organomegaly - Back Back: Normal, Nontender - Extremities General upper extremity: Normal inspection, Nontender, Normal color, Normal ROM, Normal temperature General lower extremity: Normal inspection, Nontender, Normal color, Normal ROM, Normal temperature, Normal weight bearing. No: Jennifer's sign - Neurological Neuro grossly intact: Yes Cognition: Normal Orientation: AAOx4 Srinivasan Coma Scale Eye Opening: Spontaneous Srinivasan Coma Scale Verbal: Oriented Srinivasan Coma Scale Motor: Obeys Commands [place] Coma Scale Total: 15 Speech: Normal Motor strength normal: LUE, RUE, LLE, RLE Sensory: Normal - Psychological Associated symptoms: Normal affect, Normal mood - Skin Skin Temperature: Warm Skin Moisture: Dry Skin Color: Normal Course - Re-evaluation Re-evalutation: 06/30/19 22:53 abdomen is benign will check labs, urine, kub, and provide pepcid/ivf/gi cocktail in ED 07/01/19 00:22 workup unremarkable pain improved dc w/ zantac - Vital Signs Vital signs: Temp Pulse Resp BP Pulse Ox 98.1 F 84 18 129/83 H 97 06/30/19 21:12 06/30/19 21:12 06/30/19 21:12 06/30/19 21:12 06/30/19 21:12 - Laboratory Result Diagrams: 06/30/19 22:30 06/30/19 22:30 Laboratory results interpreted by me: 06/30/19 06/30/19 22:10 22:30 Plt Count 145 L Urine Urobilinogen 2.0 H - Diagnostic Test Radiology reviewed: Image reviewed, Reports reviewed Discharge - Discharge Clinical Impression: Elevated blood pressure reading Abdominal pain Qualifiers: Abdominal location: generalized Qualified Code(s): R10.84 - Generalized abdominal pain Condition: Stable Disposition: HOME, SELF-CARE Instructions: Abdominal Pain ([facility]) Additional Instructions: follow up with primary doctor as an outpatient return to the ED with worsening Prescriptions: Ranitidine HCl [Zantac] 150 mg PO BID #14 tablet Forms: Elevated Blood Pressure Referrals: SHOAIB NEWTON MD [HONORARY] - Follow up as needed
[2019-06-30 22:36] LABS: URINE AMPHETAMINES SCREEN NEGATIVE; URINE BARBITURATES SCREEN NEGATIVE; URINE BENZODIAZEPINES SCREEN NEGATIVE; URINE COCAINE SCREEN NEGATIVE; URINE MARIJUANA (THC) SCREEN UNCONFIRMED POSITIVE; URINE METHADONE SCREEN NEGATIVE; URINE PHENCYCLIDINE SCREEN NEGATIVE
[2019-06-30 22:38] LABS: ABSOLUTE EOSINOPHILS # (AUTO) 0.1 10^3/uL (0.0-0.6); ABSOLUTE MONOCYTES (AUTO) 0.9 10^3/uL (0.1-1.4); ABSOLUTE NEUT (AUTO) 7.4 10^3/uL (1.7-8.2); BASOPHILS % (AUTO) 0.5 % (0-2); HEMATOCRIT 48.2 % (37.9-51.0); HEMOGLOBIN 16.7 g/dL (13.5-17.0); MEAN CORPUSCULAR HEMOGLOBIN 31.2 pg (27.0-33.4); MEAN CORPUSCULAR HGB CONC 34.7 g/dL (32.0-36.0); MEAN CORPUSCULAR VOLUME 90 fl (80-97); MONOCYTES % (AUTO) 8.2 % (3-13); PLATELET COUNT 145 10^3/uL (150-450); RED BLOOD COUNT 5.36 10^6/uL (4.35-5.55); RED CELL DISTRIBUTION WIDTH 13.9 % (11.5-14.0); SEGMENTED NEUTROPHILS % (AUTO) 71.3 % (42-78); TOTAL CELLS COUNTED % (AUTO) 100 %; WHITE BLOOD COUNT 10.4 10^3/uL (4.0-10.5)
[2019-06-30 22:54] LABS: APPEARANCE,URINE CLEAR; BILIRUBIN,URINE NEGATIVE (NEGATIVE); COLOR,URINE YELLOW; GLUCOSE, URINE NEGATIVE (NEGATIVE); KETONES,URINE NEGATIVE (NEGATIVE); LEUKOCYTE ESTERASE,URINE NEGATIVE (NEGATIVE); NITRITE,URINE NEGATIVE (NEGATIVE); PROTEIN,URINE NEGATIVE (NEGATIVE); URINE SPECIFIC GRAVITY 1.017
[2019-06-30] MEDS ORDERED: MAG HYDROX/AL HYDROX/SIMETH SUSP 30 ML UDCUP PO ONE (22:54)
[2019-06-30] MEDS ORDERED: METOCLOPRAMIDE HCL ORAL SOLN 10 MG/10 ML UDCUP PO ONE (22:54)
[2019-06-30] MEDS ORDERED: LIDOCAINE 2% VISCOUS SOLN 20 ML UDCUP PO ONE (22:54)
[2019-06-30 22:56] LABS: ALBUMIN 4.8 g/dL (3.5-5.0); ALKALINE PHOSPHATASE 79 U/L (38-126); ANION GAP 11 (5-19); ASPARTATE AMINO TRANSFERASE 25 U/L (17-59); BILIRUBIN,DIRECT 0.1 mg/dL (0.0-0.4); BILIRUBIN,TOTAL 0.6 mg/dL (0.2-1.3); BLOOD UREA NITROGEN 9 mg/dL (7-20); CARBON DIOXIDE 28 mmol/L (22-30); CHLORIDE 101 mmol/L (98-107); GLUCOSE 80 mg/dL (75-110); POTASSIUM 3.8 mmol/L (3.6-5.0); TOTAL PROTEIN 8.1 g/dL (6.3-8.2)
[2019-06-30 22:57] LABS: ALCOHOL < 10 mg/dL (NONE DETECTED)
--- NOTE | 2019-07-01 00:17 | RADIOLOGY REPORT (SQ) ---
CLINICAL HISTORY: nausea/vomiting COMPARISON: None. 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 There are no abnormal radiopaque foreign bodies or abnormal calcifications. Osseous structures are grossly unremarkable. IMPRESSION: No bowel obstruction.
[2019-07-01 00:52] VITALS: BP 120/76
== END 2019-07-01 00:52 | disposition home or self-care (01) ==
LOC: ER 21:03
DX: R11.2 Nausea with vomiting, unspecified (principal); R10.84 Generalized abdominal pain; R03.0 Elevated blood-pressure reading, without diagnosis of hypertension; R53.1 Weakness; R07.9 Chest pain, unspecified
CPT/HCPCS: 36415; 80307 ×2; 83690; 85025; 80053; 81001; 74019; J3490; A9270 ×2; J2405; J7030; S0028

== ENCOUNTER 2019-07-12 17:23 | Emergency (ER) | payer MEDICARE, MEDICAID ==
--- NOTE | 2019-07-12 17:32 | ER Document Report ---
ED Medical Screen (RME) - General Chief Complaint: S/S of Possible Stroke Stated Complaint: POSSIBLE STROKE Mode of Arrival: Wheelchair Information source: Patient Notes: Patient is a 24-year-old male with a long-standing history of mental health issues presenting to the emergency department with concern that he had possibly had a mini stroke. Patient reports history of TIA several years ago at a hospital in [place]. He states approximately 45 minutes prior to arrival while he was at the gym working out he had a onset of pain in his spine and down his right arm and leg. He reports decreased sensation but denies weakness. He also states that he was suicidal and homicidal, states this is normal for him on a daily basis. Exam: Occupational Medicine Officer strength is equal bilaterally. No facial drooping noted. I have greeted and performed a rapid initial assessment of this patient. A comprehensive ED assessment and evaluation of the patient, analysis of test results and completion of the medical decision making process will be conducted by additional ED providers. I have specifically instructed the patient or family members with the patient to immediately return to any nursing staff should anything change in the patient's condition or with their chief complaint. This medical record was dictated with voice recognizing software. There may be grammatical, syntax errors that are unintended. TRAVEL OUTSIDE OF THE [place] IN LAST 30 DAYS: No - Related Data Allergies/Adverse Reactions: No Known Allergies Allergy (Verified 06/30/19 21:11) Past Medical History Neurological Medical History: Reports: Hx Seizures Renal/ Medical History: Denies: Hx Peritoneal Dialysis Musculoskeltal Medical History: Reports Hx Arthritis Psychiatric Medical History: Reports: Hx Anxiety, Hx Attention Deficit Hyperactivity Disorder, Hx Bipolar Disorder, Hx Depression, Hx Obsessive Compulsive Disorder, Hx Post Traumatic Stress Disorder, Hx Schizophrenia Traumatic Medical History: Reports: Hx Fractures Past Surgical History: Reports: Hx Herniorrhaphy - Immunizations Immunizations up to date: Yes Hx Diphtheria, Pertussis, Tetanus Vaccination: Yes
--- NOTE | 2019-07-12 18:04 | RADIOLOGY REPORT (SQ) ---
EXAM DESCRIPTION: CT HEAD WITHOUT COMPLETED DATE/TIME: 07/12/2019 5:54 pm REASON FOR STUDY: Left sided weakness COMPARISON: 04/08/2015 TECHNIQUE: Axial images acquired through the brain without intravenous contrast. Images reviewed wi th bone, brain and subdural windows. Additional sagittal and coronal reconstructions were generated. Images stored on PACS. All CT scanners at this facility use dose modulation, iterative reconstruction, and/or weight based d osing when appropriate to reduce radiation dose to as low as reasonably achievable (ALARA). [facility]: Dose Right [facility]: CareDose [facility]: Dose Right [facility]: Teradose 4D [facility]: Smart PhysioSonics RADIATION DOSE: CT Rad equipment meets quality standard of care and radiation dose reduction techniq ues were employed. CTDIvol: 53.2 mGy. DLP: 991 mGy-cm. mGy. LIMITATIONS: None. FINDINGS: VENTRICLES: Normal size and contour. CEREBRUM: No masses. No hemorrhage. No midline shift. No evidence for acute infarction. Normal gra y/white matter differentiation. No areas of low density in the white matter. CEREBELLUM: No masses. No hemorrhage. No alteration of density. No evidence for acute infarction. EXTRAAXIAL SPACES: No fluid collections. No masses. ORBITS AND GLOBE: No intra- or extraconal masses. Normal contour of globe without masses. CALVARIUM: No fracture. PARANASAL SINUSES: No fluid or mucosal thickening. SOFT TISSUES: No mass or hematoma. OTHER: No other significant finding. IMPRESSION: No acute intracranial pathology. EVIDENCE OF ACUTE STROKE: NO. COMMENT: Quality ID # [id number]: Final reports with documentation of one or more dose reduction techniques (e.g., Automated exposure control, adjustment of the mA and/or kV according to patient size, use of iterative reconstruction technique) TECHNICAL DOCUMENTATION: JOB ID: [id number] [employer]- All Rights Reserved Reading location - IP/workstation name: [email or web address]
[2019-07-12 18:13] LABS: ABSOLUTE BASOPHILS # (AUTO) 0.1 10^3/uL (0.0-0.2); ABSOLUTE EOSINOPHILS # (AUTO) 0.3 10^3/uL (0.0-0.6); ABSOLUTE LYMPHOCYTES (AUTO) 2.1 10^3/uL (0.5-4.7); ABSOLUTE MONOCYTES (AUTO) 0.9 10^3/uL (0.1-1.4); ABSOLUTE NEUT (AUTO) 6.9 10^3/uL (1.7-8.2); BASOPHILS % (AUTO) 0.6 % (0-2); HEMATOCRIT 45.9 % (37.9-51.0); LYMPHOCYTES % (AUTO) 20.6 % (13-45); MEAN CORPUSCULAR HEMOGLOBIN 31.3 pg (27.0-33.4); MEAN CORPUSCULAR HGB CONC 34.9 g/dL (32.0-36.0); MEAN CORPUSCULAR VOLUME 90 fl (80-97); MONOCYTES % (AUTO) 8.8 % (3-13); PLATELET COUNT 146 10^3/uL (150-450); RED BLOOD COUNT 5.11 10^6/uL (4.35-5.55); RED CELL DISTRIBUTION WIDTH 13.6 % (11.5-14.0); TOTAL CELLS COUNTED % (AUTO) 100 %; WHITE BLOOD COUNT 10.2 10^3/uL (4.0-10.5)
--- NOTE | 2019-07-12 18:24 | ER Document Report ---
ED General - General Chief Complaint: Altered Mental Status Stated Complaint: POSSIBLE STROKE Time Seen by Provider: 07/12/19 17:37 Mode of Arrival: Wheelchair Information source: Patient Notes: 24-year-old man presents to the emergency department with a history of developed left-sided tingling while exercising today. States that he has had a similar episode in the past and he was told he had a "mini stroke". Symptoms have lasted for approximately 45 minutes, he has movement in the left side, no speech or visual changes, no facial asymmetry. He has a history of psychiatric illness, functional difficulties, anxiety, PTSD, depression, bipolar disease, obsessive-compulsive disorder, adult attention deficit syndrome. TRAVEL OUTSIDE OF THE [place] IN LAST 30 DAYS: No - Related Data Allergies/Adverse Reactions: No Known Allergies Allergy (Verified 06/30/19 21:11) Past Medical History - General Information source: Patient - Social History Smoking Status: Unknown if Ever Smoked Family History: Reviewed & Not Pertinent, Other - Mother with multiple sclerosis Patient has suicidal ideation: Yes Patient has homicidal ideation: Yes Neurological Medical History: Reports: Hx Seizures Renal/ Medical History: Denies: Hx Peritoneal Dialysis Musculoskeletal Medical History: Reports Hx Arthritis Psychiatric Medical History: Reports: Hx Anxiety, Hx Attention Deficit Hyperactivity Disorder, Hx Bipolar Disorder, Hx Depression, Hx Obsessive Compulsive Disorder, Hx Post Traumatic Stress Disorder, Hx Schizophrenia Traumatic Medical History: Reports: Hx Fractures Past Surgical History: Reports: Hx Herniorrhaphy - Immunizations Immunizations up to date: Yes Hx Diphtheria, Pertussis, Tetanus Vaccination: Yes Review of Systems - Review of Systems Notes: Constitutional: Negative for fever. Cardiovascular: Negative for chest pain. Respiratory: Negative for shortness of breath. Gastrointestinal: Negative for vomiting Musculoskeletal: Negative for back pain. Skin: Negative for rash. Neurological: + Tingling left-sided. 10 point ROS negative except as marked above and in HPI. Physical Exam - Vital signs Vitals: Temp Pulse Resp BP Pulse Ox 97.9 F 78 18 115/72 96 07/12/19 18:04 07/12/19 18:04 07/12/19 18:04 07/12/19 18:04 07/12/19 18:04 - Notes Notes: PHYSICAL EXAMINATION: GENERAL: Well-appearing, well-nourished and in no acute distress. HEAD: Atraumatic, normocephalic. EYES: Pupils equal round and reactive to light, extraocular movements intact, sclera anicteric, conjunctiva are normal. ENT: nares patent, oropharynx clear without exudates. Moist mucous membranes. NECK: Normal range of motion, supple without lymphadenopathy LUNGS: Breath sounds clear to auscultation bilaterally and equal. No wheezes rales or rhonchi. HEART: Regular rate and rhythm without murmurs ABDOMEN: Soft, nontender, normoactive bowel sounds. No guarding, no rebound. No masses appreciated. EXTREMITIES: Normal range of motion, no pitting or edema. No cyanosis. NEUROLOGICAL: No focal neurological deficits. Moves all extremities spontaneously and on command. PSYCH: Anxious appearing 24-year-old, normal mood, normal affect. Denies a desire to harm himself or others. (The patient states that he thinks about suicide, he has no intention to harm himself and this is been an ongoing issue for years.) SKIN: Warm, Dry, normal turgor, no rashes or lesions noted. Course - Re-evaluation Re-evalutation: Differential diagnosis Electrolyte imbalance, infection, trauma, ischemic/vascular psychogenic 07/12/19 20:31 Patient symptoms improving in the emergency department, CT scan laboratory data and evaluation is negative. I explained to the patient that I think that his symptoms may be his psychogenic, related to anxiety, PTSD, OCS, or other ongoing psychiatric problems. Encouraged him to follow-up with his primary care doctor and to limit his vigorous exercise though these had a follow-up. The patient acknowledges this information and is in agreement with that plan. - Vital Signs Vital signs: Temp Pulse Resp BP Pulse Ox 97.9 F 78 18 115/72 96 07/12/19 18:04 07/12/19 18:04 07/12/19 18:04 07/12/19 18:04 07/12/19 18:04 - Laboratory Result Diagrams: 07/12/19 18:05 07/12/19 18:05 Laboratory results interpreted by me: 07/12/19 07/12/19 07/12/19 18:05 18:05 18:14 Plt Count 146 L Urine Urobilinogen 4.0 H Salicylates < 1.0 L Acetaminophen < 10 L 07/12/19 20:36 I have reviewed laboratory data and used this information for the treatment decisions regarding the patient. - Diagnostic Test Radiology reviewed: Image reviewed, Reports reviewed - CT of the head, noncontrast: No acute findings. - EKG Interpretation by Me EKG shows normal: Sinus rhythm, [place], Intervals, QRS Complexes, ST-T Waves Discharge - Discharge Clinical Impression: Tingling of left arm and left side of face, Anxiety, Musculoskeletal pain Condition: Stable Disposition: HOME, SELF-CARE Instructions: Anxiety (OM), Numbness or Paresthesia (OM)
[2019-07-12 18:33] LABS: APPEARANCE,URINE CLEAR; BILIRUBIN,URINE NEGATIVE (NEGATIVE); COLOR,URINE YELLOW; GLUCOSE, URINE NEGATIVE (NEGATIVE); KETONES,URINE NEGATIVE (NEGATIVE); LEUKOCYTE ESTERASE,URINE NEGATIVE (NEGATIVE); NITRITE,URINE NEGATIVE (NEGATIVE); PROTEIN,URINE NEGATIVE (NEGATIVE); URINE SPECIFIC GRAVITY 1.016
[2019-07-12 18:34] LABS: ACETAMINOPHEN < 10 ug/mL (10-30); ALBUMIN 4.7 g/dL (3.5-5.0); ALCOHOL < 10 mg/dL (NONE DETECTED); ALKALINE PHOSPHATASE 79 U/L (38-126); ANION GAP 12 (5-19); ASPARTATE AMINO TRANSFERASE 26 U/L (17-59); BILIRUBIN,DIRECT 0.1 mg/dL (0.0-0.4); BILIRUBIN,TOTAL 0.7 mg/dL (0.2-1.3); BLOOD UREA NITROGEN 10 mg/dL (7-20); CARBON DIOXIDE 24 mmol/L (22-30); CHLORIDE 105 mmol/L (98-107); GLUCOSE 87 mg/dL (75-110); POTASSIUM 4.1 mmol/L (3.6-5.0); SALICYLATE < 1.0 mg/dL (2.0-20.0); TOTAL PROTEIN 7.6 g/dL (6.3-8.2)
[2019-07-12 18:47] LABS: URINE AMPHETAMINES SCREEN NEGATIVE; URINE BARBITURATES SCREEN NEGATIVE; URINE BENZODIAZEPINES SCREEN NEGATIVE; URINE COCAINE SCREEN NEGATIVE; URINE MARIJUANA (THC) SCREEN NEGATIVE; URINE METHADONE SCREEN NEGATIVE; URINE PHENCYCLIDINE SCREEN NEGATIVE
[2019-07-12 20:44] VITALS: BP 115/76
--- NOTE | 2019-07-12 23:07 | EKG REPORT ---
SEVERITY:- NORMAL ECG - SINUS RHYTHM : Confirmed by: Dilip Crow MD 12-Jul-2019 23:06:48
== END 2019-07-12 20:47 | disposition home or self-care (01) ==
LOC: ER 17:23
DX: R20.2 Paresthesia of skin (principal); F41.9 Anxiety disorder, unspecified; R41.82 Altered mental status, unspecified; M79.18 Myalgia, other site
CPT/HCPCS: 36415; 70450; 80053; 80307; 81001; 85025; 93005; 93010; 99285

== ENCOUNTER → 2019-07-14 | Outpatient (CLI) | payer MEDICARE, MEDICAID ==
[2019-07-14 09:58] LABS: HEMATOCRIT 44.3 % (37.9-51.0); HEMOGLOBIN 15.5 g/dL (13.5-17.0); MEAN CORPUSCULAR HEMOGLOBIN 31.2 pg (27.0-33.4); MEAN CORPUSCULAR VOLUME 89 fl (80-97); PLATELET COUNT 133 10^3/uL (150-450); RED BLOOD COUNT 4.96 10^6/uL (4.35-5.55); RED CELL DISTRIBUTION WIDTH 13.7 % (11.5-14.0); WHITE BLOOD COUNT 7.2 10^3/uL (4.0-10.5)
[2019-07-14 10:09] LABS: APPEARANCE,URINE CLEAR; BILIRUBIN,URINE NEGATIVE (NEGATIVE); COLOR,URINE YELLOW; GLUCOSE, URINE NEGATIVE (NEGATIVE); KETONES,URINE NEGATIVE (NEGATIVE); LEUKOCYTE ESTERASE,URINE NEGATIVE (NEGATIVE); NITRITE,URINE NEGATIVE (NEGATIVE); PROTEIN,URINE NEGATIVE (NEGATIVE); URINE SPECIFIC GRAVITY 1.023
[2019-07-14 10:23] LABS: ALBUMIN 4.4 g/dL (3.5-5.0); ALKALINE PHOSPHATASE 73 U/L (38-126); ANION GAP 10 (5-19); ASPARTATE AMINO TRANSFERASE 139 U/L (17-59); BILIRUBIN,DIRECT 0.1 mg/dL (0.0-0.4); BILIRUBIN,TOTAL 0.8 mg/dL (0.2-1.3); BLOOD UREA NITROGEN 9 mg/dL (7-20); CALCIUM 9.7 mg/dL (8.4-10.2); CARBON DIOXIDE 25 mmol/L (22-30); CHLORIDE 106 mmol/L (98-107); CHOLESTEROL 156.28 mg/dL (0-200); GLUCOSE 84 mg/dL (75-110); POTASSIUM 4.2 mmol/L (3.6-5.0); TOTAL PROTEIN 7.2 g/dL (6.3-8.2); TRIGLYCERIDES 46 mg/dL (<150)
[2019-07-14 10:34] LABS: DIRECT LDL 100 mg/dL (<100)
[2019-07-14 10:52] LABS: CREATINE KINASE 2964 U/L (55-170)
== END ==
LOC: OD 09:15
PROVIDERS: ATTEND Nurse Practitioner Psychiatric/Mental Health
DX: F25.0 Schizoaffective disorder, bipolar type (principal); Z79.899 Other long term (current) drug therapy
CPT/HCPCS: 36415; 80053; 80061; 81001; 82550; 84146; 84443; 85027

== ENCOUNTER 2019-07-18 14:40 | Emergency (ER) | payer MEDICARE, MEDICAID ==
--- NOTE | 2019-07-18 14:59 | ER Document Report ---
ED Medical Screen (RME) - General Chief Complaint: Hemorrhoids Stated Complaint: HEMORRHOID Time Seen by Provider: 07/18/19 14:53 Primary Care Provider: THU AUGUSTINE NP [Primary Care Provider] - Follow up as needed Mode of Arrival: Ambulatory Information source: Patient Notes: Patient is a 24-year-old male presenting to the emergency department chief complaint of hemorrhoid pain. Patient reports he has a large external hemorrhoid that is blocking his ability to have a bowel movement. Patient is very animated about this in triage. He states he had a bowel movement last night but since then the hemorrhoid has gotten worse. He is dancing around in the triage room. I have greeted and performed a rapid initial assessment of this patient. A comprehensive ED assessment and evaluation of the patient, analysis of test results and completion of the medical decision making process will be conducted by additional ED providers. I have specifically instructed the patient or family members with the patient to immediately return to any nursing staff should anything change in the patient's condition or with their chief complaint. This medical record was dictated with voice recognizing software. There may be grammatical, syntax errors that are unintended. TRAVEL OUTSIDE OF THE [place] IN LAST 30 DAYS: No - Related Data Allergies/Adverse Reactions: No Known Allergies Allergy (Verified 07/18/19 14:50) Home Medications: abilify 400 monthly Past Medical History - Social History Chew tobacco use (# tins/day): No Frequency of alcohol use: Occasional Drug Abuse: None Neurological Medical History: Reports: Hx Seizures Renal/ Medical History: Denies: Hx Peritoneal Dialysis Musculoskeltal Medical History: Reports Hx Arthritis Psychiatric Medical History: Reports: Hx Anxiety, Hx Attention Deficit Hyperactivity Disorder, Hx Bipolar Disorder, Hx Depression, Hx Obsessive Compulsive Disorder, Hx Post Traumatic Stress Disorder, Hx Schizophrenia Traumatic Medical History: Reports: Hx Fractures Past Surgical History: Reports: Hx Herniorrhaphy - Immunizations Immunizations up to date: Yes Hx Diphtheria, Pertussis, Tetanus Vaccination: Yes Doctor's Discharge - Discharge Referrals: THU AUGUSTINE NP [Primary Care Provider] - Follow up as needed
[2019-07-18] MEDS ORDERED: LIDOCAINE 2% JELLY 30 ML TUBE TOP ONE (15:55)
[2019-07-18] MEDS ORDERED: LIDOCAINE 1% INJ-PF (10 MG/ML) 30 ML SDV INJ ONE (16:04)
[2019-07-18] MEDS ORDERED: MORPHINE SULFATE 10 MG/ML INJ IM ONE (16:05)
--- NOTE | 2019-07-18 16:11 | ER Document Report ---
HPI - HPI Time Seen by Provider: 07/18/19 14:53 Pain Level: 5 Notes: Patient is a 24-year-old male with history of internal hemorrhoids who presents complaining of a painful external hemorrhoid that is making it difficult to have bowel movements and has been present for the past couple days but worsening. He is otherwise able to eat and drink without difficulty. He is urinating normally. Denies drug allergies. No other concerns or complaints. Denies any headache, fever, neck pain, URI, sore throat, chest pain, palpitations, syncope, cough, shortness of breath, wheeze, dyspnea, abdominal pain, nausea/vomiting/diarrhea, urinary retention, dysuria, hematuria, or rash. - ROS Systems Reviewed and Negative: Yes All other systems reviewed and negative - REPRODUCTIVE Reproductive: DENIES: : Past Medical History - General Information source: Patient - Social History Smoking Status: Current Every Day Smoker Chew tobacco use (# tins/day): No Frequency of alcohol use: Occasional Drug Abuse: None Family History: Reviewed & Not Pertinent, Other - Mother with multiple sclerosis Patient has suicidal ideation: No Patient has homicidal ideation: No Neurological Medical History: Reports: Hx Seizures Renal/ Medical History: Denies: Hx Peritoneal Dialysis Musculoskeletal Medical History: Reports Hx Arthritis Psychiatric Medical History: Reports: Hx Anxiety, Hx Attention Deficit Hyperactivity Disorder, Hx Bipolar Disorder, Hx Depression, Hx Obsessive Compulsive Disorder, Hx Post Traumatic Stress Disorder, Hx Schizophrenia Traumatic Medical History: Reports: Hx Fractures Past Surgical History: Reports: Hx Herniorrhaphy - Immunizations Immunizations up to date: Yes Hx Diphtheria, Pertussis, Tetanus Vaccination: Yes Vertical Provider Document - CONSTITUTIONAL Agree With Documented VS: Yes Notes: PHYSICAL EXAMINATION: GENERAL: Well-appearing, well-nourished and in no acute distress. LUNGS: Breath sounds clear to auscultation bilaterally and equal. No wheezes rales or rhonchi. HEART: Regular rate and rhythm without murmurs, rubs, gallops. ABDOMEN: Soft, nontender, nondistended abdomen. No guarding, no rebound. Normal bowel sounds present. No CVA tenderness bilaterally. Rectal eval (accompanied by male RN, tessie): there is a thrombosed external hemorrhoid noted approx 9 o'clock position of rectum. + tenderness. NEUROLOGICAL: Normal speech, normal gait. PSYCH: Normal mood, normal affect. SKIN: Warm, Dry, normal turgor, no rashes or lesions noted. - INFECTION CONTROL TRAVEL OUTSIDE OF THE [place] IN LAST 30 DAYS: No Course - Re-evaluation Re-evalutation: 07/18/19 16:10 Dr. cMcabe was consulted who also agrees with I&D of the thrombosed hemorrhoid at this time. We will give Morphine IM as well. 07/18/19 17:02 Patient is an afebrile, well-hydrated, 24-year-old male who presents with a thrombosed external hemorrhoid warranting incision and drainage. Vitals are acceptable without significant tachycardia, tachypnea, hypoxia. PE is otherwise unremarkable. Patient is nontoxic-appearing and is tolerating p.o. without any difficulty. Wound was thoroughly irrigated and cleansed. Small incision was made to allow adequate drainage of the clot. Patient tolerated procedure well without any complications. Wound dressing placed and wound instructions reviewed. Low suspicion for any other systemic or emergent condition at this time. Patient to recheck with his PCM next week as well as either general surgery/gastroenterology. Return to the ED with any other worsening/concerning symptoms. Patient is in agreement. Procedures - Incision and Drainage Left Rectal Type: Simple Anesthetic type: Other - topical xylocaine Blade size: 11 Incision Method: Incision made by scalpel Amount/type of drainage: clot removed from thrombosed hemorrhoid Notes: 07/18/19 Pt tolerated proc well, no complications. Discharge - Discharge Clinical Impression: Thrombosed external hemorrhoid Condition: Stable Disposition: HOME, SELF-CARE Instructions: Incision of Thrombosed Hemorrhoids ([facility]) Additional Instructions: Direction as in handout. Maintain adequate fluid and food intake stool softeners daily Monitor for any worsening symptoms Make sure you are staying hydrated enough to urinate and have normal BM's Recheck with your PCM in 2-3 days Consider consult with Gastroenterology/general surgery for ongoing/worsening symptoms Return to the ED with any worsening symptoms and/or development of fever, headache, chest pain, palpitations, syncope, shortness of breath, trouble breathing, abdominal pain, n/v/d, blood in stool/urine, weakness, or other worsening symptoms that are concerning to you. Prescriptions: Hydrocodone/Acetaminophen [[place] 5-325 mg Tablet] 1 tab PO BID PRN #6 tablet PRN Reason: Forms: Elevated Blood Pressure Referrals: THU AUGUSTINE NP [Primary Care Provider] - Follow up as needed KATERINA HYATT MD [ACTIVE STAFF] - Follow up as needed EVERETTE MEDRANO MD [ACTIVE STAFF] - Follow up as needed
[2019-07-18 17:17] VITALS: BP 125/83
== END 2019-07-18 17:19 | disposition home or self-care (01) ==
LOC: ER 14:40
DX: K64.9 Unspecified hemorrhoids (principal); K64.5 Perianal venous thrombosis; F17.200 Nicotine dependence, unspecified, uncomplicated
CPT/HCPCS: 99282; 96372; 46083; J2270

== ENCOUNTER 2020-01-21 14:13 | Observation (INO) | payer MEDICARE, MEDICAID ==
[2020-01-21] MEDS ORDERED: CEFTRIAXONE INJ 1000 MG VIAL IV ONE (14:50)
[2020-01-21] MEDS ORDERED: KETOROLAC TROMETHAMINE INJ/PF 30 MG/1 ML SDV IV ONE (14:53)
--- NOTE | 2020-01-21 14:54 | ER Document Report ---
ED Medical Screen (RME) - General Chief Complaint: Hand Swelling Stated Complaint: HAND SWELLING Time Seen by Provider: 01/21/20 14:44 Primary Care Provider: THU AUGUSTINE NP [Primary Care Provider] - Follow up as needed Mode of Arrival: Ambulatory Information source: Patient Notes: HPI; 24-year-old male presents emergency room with pain, redness, and swelling to his left fifth finger at the PIP joint. Patient states he accidentally stuck his finger with a metal fork 1 week ago. States he woke up today noticed it was red swollen and unable to bend. Not taking any medications. Tetanus up-to-date. PE: Alert and oriented x3. Mild distress noted. Lungs clear to auscultation without rales, rhonchi, or wheezes. Heart: Regular rate rhythm without murmurs, rubs, gallops. Left fifth finger at the base to the PIP joint with erythema, swelling, warm, tender to palpation. No active discharge or draining noted. I have greeted and performed a rapid initial assessment of this patient. A comprehensive ED assessment and evaluation of the patient, analysis of test results and completion of the medical decision making process will be conducted by additional ED providers. I have specifically instructed the patient or family members with the patient to immediately return to any nursing staff should anything change in the patient's condition or with their chief complaint. TRAVEL OUTSIDE OF THE [place] IN LAST 30 DAYS: No - Related Data Allergies/Adverse Reactions: No Known Allergies Allergy (Verified 07/18/19 14:50) Home Medications: Abilify. Dilantin Past Medical History - Social History Drug Abuse: Marijuana Neurological Medical History: Reports: Hx Seizures Renal/ Medical History: Denies: Hx Peritoneal Dialysis Musculoskeltal Medical History: Reports Hx Arthritis Psychiatric Medical History: Reports: Hx Anxiety, Hx Attention Deficit Hyperactivity Disorder, Hx Bipolar Disorder, Hx Depression, Hx Obsessive Compulsive Disorder, Hx Post Traumatic Stress Disorder, Hx Schizophrenia Traumatic Medical History: Reports: Hx Fractures Past Surgical History: Reports: Hx Herniorrhaphy - Immunizations Immunizations up to date: Yes Hx Diphtheria, Pertussis, Tetanus Vaccination: Yes Physical Exam - Vital signs Vitals: Temp Pulse Resp BP Pulse Ox 98.3 F 98 14 128/78 H 97 01/21/20 14:18 01/21/20 14:18 01/21/20 14:18 01/21/20 14:18 01/21/20 14:18 Course - Vital Signs Vital signs: Temp Pulse Resp BP Pulse Ox 98.3 F 98 14 128/78 H 97 01/21/20 14:45 01/21/20 14:18 01/21/20 14:18 01/21/20 14:18 01/21/20 14:18 Doctor's Discharge - Discharge Referrals: THU AUGUSTINE NP [Primary Care Provider] - Follow up as needed
--- NOTE | 2020-01-21 16:17 | RADIOLOGY REPORT (SQ) ---
EXAM DESCRIPTION: FINGER LEFT IMAGES COMPLETED DATE/TIME: 01/21/2020 3:50 pm REASON FOR STUDY: left fifth finger injury COMPARISON: None. NUMBER OF VIEWS: Three views. TECHNIQUE: AP, lateral, and oblique images acquired of the left fifth finger. LIMITATIONS: None. FINDINGS: MINERALIZATION: Normal. BONES: No acute fracture or dislocation. No worrisome bone lesions. SOFT TISSUES: No foreign body. OTHER: No other significant finding. IMPRESSION: No fracture or foreign body. TECHNICAL DOCUMENTATION: JOB ID: [id number] [employer]- All Rights Reserved Reading location - IP/workstation name: [email or web address] SQL [email or web address]-[email or web address]-
[2020-01-21 16:39] LABS: ABSOLUTE BASOPHILS # (AUTO) 0.1 10^3/uL (0.0-0.2); ABSOLUTE EOSINOPHILS # (AUTO) 0.2 10^3/uL (0.0-0.6); ABSOLUTE LYMPHOCYTES (AUTO) 1.6 10^3/uL (0.5-4.7); ABSOLUTE MONOCYTES (AUTO) 0.7 10^3/uL (0.1-1.4); ABSOLUTE NEUT (AUTO) 6.5 10^3/uL (1.7-8.2); BASOPHILS % (AUTO) 0.7 % (0-2); EOSINOPHILS % (AUTO) 1.8 % (0-6); HEMATOCRIT 44.4 % (37.9-51.0); HEMOGLOBIN 15.8 g/dL (13.5-17.0); LYMPHOCYTES % (AUTO) 17.5 % (13-45); MEAN CORPUSCULAR HEMOGLOBIN 32.2 pg (27.0-33.4); MEAN CORPUSCULAR HGB CONC 35.6 g/dL (32.0-36.0); MEAN CORPUSCULAR VOLUME 91 fl (80-97); PLATELET COUNT 117 10^3/uL (150-450); RED BLOOD COUNT 4.91 10^6/uL (4.35-5.55); RED CELL DISTRIBUTION WIDTH 13.5 % (11.5-14.0); TOTAL CELLS COUNTED % (AUTO) 100 %
[2020-01-21 17:00] LABS: ALBUMIN 4.4 g/dL (3.5-5.0); ALKALINE PHOSPHATASE 73 U/L (38-126); ANION GAP 7 (5-19); ASPARTATE AMINO TRANSFERASE 30 U/L (17-59); BILIRUBIN,TOTAL 0.5 mg/dL (0.2-1.3); BLOOD UREA NITROGEN 11 mg/dL (7-20); CALCIUM 9.6 mg/dL (8.4-10.2); CARBON DIOXIDE 26 mmol/L (22-30); CHLORIDE 104 mmol/L (98-107); GLUCOSE 100 mg/dL (75-110)
[2020-01-21 17:01] LABS: C-REACTIVE PROTEIN < 5.0 mg/L (<10.0)
[2020-01-21] MEDS ORDERED: AMPICILLIN SOD/SULBACTAM 3 GM VIAL IV ONE (17:17)
[2020-01-21 17:27] LABS: ERYTHROCYTE SEDIMENTATION RATE 4 mm/hr (0-15)
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
[2020-01-21] MEDS ORDERED: ACETAMINOPHEN 325 MG TABLET PO PRN (18:42)
[2020-01-21] MEDS ORDERED: OXYCODONE-ACETAMINOPHEN 5-325 MG TABLET PO PRN (18:42)
[2020-01-21] MEDS ORDERED: ALBUTEROL SULFATE 0.083% NEB 2.5 MG/3 ML AMPUL NEB PRN (18:42)
[2020-01-21] MEDS ORDERED: MAGNESIUM HYDROXIDE SUSP 30 ML UDCUP PO PRN (18:42)
[2020-01-21] MEDS ORDERED: ONDANSETRON HCL INJ/PF 4 MG/2 ML SDV IV PRN (18:42)
[2020-01-21] MEDS ORDERED: MAG HYDROX/AL HYDROX/SIMETH SUSP 30 ML UDCUP PO PRN (18:42)
--- NOTE | 2020-01-21 18:54 | PDOC H&P ---
History of Present Illness Admission Date/PCP: 01/21/20 18:44 Patient complains of: Lt 5th finger swelling/pain History of Present Illness: ROD TOTH is a 24 year old male with a past medical history significant for seizures, arthritis, anxiety, ADHD, bipolar, depression, OCD, PTSD, schizophrenia who presented to the emergency department today with left fifth digit erythema and edema following puncture injury yesterday evening. Patient denies fevers, chills. He reports the pain is localized to his fifth finger. He has limited flexion (likely secondary to edema) and extension of the digit as full range of motion to his remaining fingers and wrist. Evaluation in the emergency department was essentially benign with normal vital signs, CBC, chemistry. X-ray demonstrated edema but no foreign body, fracture, or worrying lesions. The emergency department provider has reached out to orthopedics for guidance; awaiting their recommendations. In the interim, he was provided IV Unasyn and referred to the hospitalist service for admission and management of the above-stated complaints findings. Past Medical History Cardiac Medical History: Reports: None Pulmonary Medical History: Reports: None EENT Medical History: Reports: None Neurological Medical History: Reports: Seizures Endocrine Medical History: Reports: Obesity Renal/ Medical History: Reports: None Malignancy Medical History: Reports: None GI Medical History: Reports: None Musculoskeltal Medical History: Reports: Arthritis Psychiatric Medical History: Reports: Attention Deficit Hyperactivity Disorder, Bipolar Disorder, Depression, Post Traumatic Stress Disorder Traumatic Medical History: Reports: None Hematology: Reports: None Infectious Medical History: Reports: None Past Surgical History Past Surgical History: Reports: Herniorrhaphy Social History Information Source: Patient Lives with: Family Smoking Status: Current Every Day Smoker Cigarettes Packs Per Day: 1 Electronic Cigarette use?: No Frequency of Alcohol Use: Rare Hx Recreational Drug Use: Yes Drugs: Marijuana Hx Prescription Drug Abuse: No - Advance Directive Resuscitation Status: Full Code Family History Family History: Reviewed & Not Pertinent, Other - Mother with multiple sclerosis Parental Family History Reviewed: Yes Children Family History Reviewed: Yes Sibling(s) Family History Reviewed.: Yes Medication/Allergy Allergies/Adverse Reactions: No Known Allergies Allergy (Verified 07/18/19 14:50) Review of Systems Constitutional: ABSENT: chills, fever(s), headache(s), weight gain, weight loss Eyes: ABSENT: visual disturbances Ears: ABSENT: hearing changes Cardiovascular: ABSENT: chest pain, dyspnea on exertion, edema, orthropnea, palpitations Respiratory: ABSENT: cough, hemoptysis Gastrointestinal: ABSENT: abdominal pain, constipation, diarrhea, hematemesis, hematochezia, nausea, vomiting Genitourinary: ABSENT: dysuria, hematuria Musculoskeletal: ABSENT: joint swelling Integumentary: PRESENT: as per HPI, erythema, wounds Neurological: ABSENT: abnormal gait, abnormal speech, confusion, dizziness, focal weakness, syncope Psychiatric: ABSENT: anxiety, depression, homidical ideation, suicidal ideation Endocrine: ABSENT: cold intolerance, heat intolerance, polydipsia, polyuria Hematologic/Lymphatic: ABSENT: easy bleeding, easy bruising Physical Exam Vital Signs: Temp Pulse Resp BP Pulse Ox 98.3 F 98 14 128/78 H 97 01/21/20 14:45 01/21/20 14:18 01/21/20 14:18 01/21/20 14:18 01/21/20 14:18 Intake & Output 01/20/20 01/21/20 01/22/20 06:59 06:59 06:59 Weight 94.2 kg General appearance: PRESENT: no acute distress, cooperative, well-developed, well-nourished - Overweight Head exam: PRESENT: atraumatic, normocephalic Eye exam: PRESENT: conjunctiva pink, EOMI, PERRLA. ABSENT: scleral icterus Mouth exam: PRESENT: moist, tongue midline Respiratory exam: PRESENT: clear to auscultation zeeshan, symmetrical, unlabored. ABSENT: rales, rhonchi, wheezes Cardiovascular exam: PRESENT: RRR, +S1, +S2. ABSENT: diastolic murmur, rubs, systolic murmur Vascular exam: PRESENT: normal capillary refill Extremities exam: PRESENT: other - Limited flexion and extension of left fifth digit; edema with slight erythema. ABSENT: calf tenderness, clubbing, pedal edema Neurological exam: PRESENT: alert, awake, oriented to person, oriented to place, oriented to time, oriented to situation, CN II-XII grossly intact. ABSENT: motor sensory deficit Psychiatric exam: PRESENT: appropriate affect, normal mood. ABSENT: homicidal ideation, suicidal ideation Skin exam: PRESENT: dry, warm. ABSENT: cyanosis, rash Results Laboratory Results: 01/21/20 16:18 01/21/20 16:18 01/21/20 01/21/20 01/21/20 16:18 16:18 16:18 WBC 9.0 RBC 4.91 Hgb 15.8 Hct 44.4 MCV 91 MCH 32.2 MCHC 35.6 RDW 13.5 Plt Count 117 L Seg Neutrophils % 72.0 Sodium 137.3 Potassium 4.0 Chloride 104 Carbon Dioxide 26 Anion Gap 7 BUN 11 Creatinine 0.91 Est GFR ( Amer) > 60 Glucose 100 Lactic Acid 0.7 Calcium 9.6 Total Bilirubin 0.5 AST 30 Alkaline Phosphatase 73 C-Reactive Protein < 5.0 Total Protein 7.0 Albumin 4.4 Impressions: Finger X-Ray 01/21/20 14:48 IMPRESSION: No fracture or foreign body. Assessment and Plan - Diagnosis (1) Cellulitis of finger of left hand Is this a current diagnosis for this admission?: Yes Plan: Patient is admitted to the medical floor. Provide IV Unasyn. Blood cultures pending. Orthopedics has been consulted. We will up CBC. (2) Tobacco dependence Is this a current diagnosis for this admission?: Yes Plan: Smoking cessation encouraged. Declines nicotine replacement therapies. (3) Bipolar disorder Qualifiers: Active/Remission status: in full remission Most recent bipolar episode type: mixed Qualified Code(s): F31.78 - Bipolar disorder, in full remission, most recent episode mixed Is this a current diagnosis for this admission?: Yes Plan: We will continue home medication regiment once reconciled. - Time Time Spent with patient: 25-34 minutes Medications reviewed and adjusted accordingly: Yes Anticipated discharge: Home Within: within 24 hours - pending Ortho recommendations
[2020-01-21] MEDS ORDERED: DEXTROSE 50%-WATER 25 GM/50 ML DISP.SYRIN IV PRN ×2 (18:55)
[2020-01-21] MEDS ORDERED: GLUCAGON,HUMAN RECOMB 1 MG INJ SUBCUT PRN (18:55)
[2020-01-21] MEDS ORDERED: DEXTROSE 40% GEL 15 GM TUBE PO PRN ×2 (18:55)
[2020-01-21] MEDS ORDERED: IBUPROFEN 600 MG TABLET PO ONE (19:30)
[2020-01-21] MEDS ORDERED: DIPH/PERTUSS(ACELL)/TETANUS VAC/PF 0.5 ML SYR (>=10YO) IM ONE (19:51)
[2020-01-21] MEDS: HEPARIN SOD (PORCINE) 5,000 UNIT/ML 1 ML VIAL SUBCUT SCH (21:14)
[2020-01-21] MEDS: FAMOTIDINE 20 MG TABLET PO SCH (21:14)
[2020-01-21] MEDS: TEMAZEPAM 7.5 MG CAPSULE PO SCH (21:14)
[2020-01-21] MEDS ORDERED: TETANUS/DIPHTHERIA TOX-ADULT 0.5 ML SYR (>=7YO) IM ONE (23:11)
[2020-01-21] MEDS: AMPICILLIN SODIUM/SULBACTAM NA 1.5 GM in NORMAL SALINE 50 ML IV SCH (23:32)
[2020-01-22] MEDS: PHENYTOIN SODIUM EXTENDED 100 MG CAPSULE PO SCH ×5 (01:58→21:34)
[2020-01-22 05:04] LABS: ABSOLUTE BASOPHILS # (AUTO) 0.1 10^3/uL (0.0-0.2); ABSOLUTE EOSINOPHILS # (AUTO) 0.3 10^3/uL (0.0-0.6); ABSOLUTE LYMPHOCYTES (AUTO) 2.3 10^3/uL (0.5-4.7); ABSOLUTE MONOCYTES (AUTO) 0.7 10^3/uL (0.1-1.4); ABSOLUTE NEUT (AUTO) 4.1 10^3/uL (1.7-8.2); BASOPHILS % (AUTO) 0.8 % (0-2); EOSINOPHILS % (AUTO) 4.1 % (0-6); HEMATOCRIT 43.1 % (37.9-51.0); HEMOGLOBIN 14.8 g/dL (13.5-17.0); LYMPHOCYTES % (AUTO) 30.4 % (13-45); MEAN CORPUSCULAR HEMOGLOBIN 31.8 pg (27.0-33.4); MEAN CORPUSCULAR HGB CONC 34.4 g/dL (32.0-36.0); MEAN CORPUSCULAR VOLUME 92 fl (80-97); MONOCYTES % (AUTO) 9.5 % (3-13); PLATELET COUNT 117 10^3/uL (150-450); RED BLOOD COUNT 4.67 10^6/uL (4.35-5.55); RED CELL DISTRIBUTION WIDTH 13.4 % (11.5-14.0); SEGMENTED NEUTROPHILS % (AUTO) 55.2 % (42-78); TOTAL CELLS COUNTED % (AUTO) 100 %; WHITE BLOOD COUNT 7.4 10^3/uL (4.0-10.5)
[2020-01-22] MEDS: HEPARIN SOD (PORCINE) 5,000 UNIT/ML 1 ML VIAL SUBCUT SCH ×3 (05:12→21:25)
[2020-01-22 05:24] LABS: ANION GAP 6 (5-19); BLOOD UREA NITROGEN 11 mg/dL (7-20); CALCIUM 8.7 mg/dL (8.4-10.2); CARBON DIOXIDE 26 mmol/L (22-30); CHLORIDE 107 mmol/L (98-107); GLUCOSE 106 mg/dL (75-110); POTASSIUM 3.8 mmol/L (3.6-5.0)
[2020-01-22] MEDS ORDERED: PHENYTOIN SODIUM EXTENDED 100 MG CAPSULE PO ONE (05:43)
[2020-01-22] MEDS: AMPICILLIN SODIUM/SULBACTAM NA 1.5 GM in NORMAL SALINE 50 ML IV SCH ×3 (06:02→17:17)
[2020-01-22] MEDS: FAMOTIDINE 20 MG TABLET PO SCH ×2 (09:35→21:34)
[2020-01-22] MEDS: ARIPIPRAZOLE 5 MG TABLET PO SCH (09:35)
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
[2020-01-22] MEDS ORDERED: TRAMADOL HCL 50 MG TABLET PO PRN (16:31)
--- NOTE | 2020-01-22 18:03 | PDOC PROGRESS REPORT ---
Subjective Progress Note for:: 01/22/20 Subjective:: ROD TOTH is a 24 year old male with a past medical history significant for seizures, arthritis, anxiety, ADHD, bipolar, depression, OCD, PTSD, schizophrenia who was admitted 01/21/2020 with cellulitis to the left fifth finger. Patient was seen on morning rounds, he was found resting in bed, comfortably, on room air. He reports continued swelling and limited motion to his left finger with decreased electrical line mechanic strength due to swelling and pain. The erythema has resolved entirely. No fevers overnight. He denies chest pain, dyspnea, cough, abdominal pain, nausea and vomiting. No questions or concerns at this time. Late afternoon received notification from nursing that the patient became diaphoretic with nausea and emesis x1 shortly after standing. Patient had received Percocet shortly prior. Blood pressure is soft (101/56) but remaining vital signs normal. Symptoms resolved by returning to bed and IV Zofran. Reason For Visit: LEFT FIFTH DIGIT CELLULITIS/TENOSYNOVITIS Physical Exam Vital Signs: Temp Pulse Resp BP Pulse Ox 98.4 F 74 16 101/56 L 98 01/22/20 15:36 01/22/20 15:36 01/22/20 15:36 01/22/20 15:36 01/22/20 15:36 Intake & Output 01/21/20 01/22/20 01/23/20 06:59 06:59 06:59 Intake Total 650 580 Balance 650 580 Weight 88.7 kg General appearance: PRESENT: no acute distress, cooperative, well-developed, well-nourished - overweight Head exam: PRESENT: atraumatic, normocephalic Eye exam: PRESENT: conjunctiva pink, EOMI, PERRLA. ABSENT: scleral icterus Mouth exam: PRESENT: moist, tongue midline Respiratory exam: PRESENT: clear to auscultation zeeshan, symmetrical, unlabored. A BSENT: rales, rhonchi, wheezes Cardiovascular exam: PRESENT: RRR. ABSENT: diastolic murmur, rubs, systolic murmur Pulses: PRESENT: normal dorsalis pedis pul Vascular exam: PRESENT: normal capillary refill Extremities exam: PRESENT: full ROM, tenderness - Limited flexion and extension of left fifth digit with edema; erythema has resolved.. ABSENT: calf tenderness, clubbing, pedal edema Musculoskeletal exam: PRESENT: ambulatory Neurological exam: PRESENT: alert, awake, oriented to person, oriented to place, oriented to time, oriented to situation, CN II-XII grossly intact. ABSENT: motor sensory deficit Psychiatric exam: PRESENT: appropriate affect, normal mood. ABSENT: homicidal ideation, suicidal ideation Skin exam: PRESENT: dry, intact, warm. ABSENT: cyanosis, rash Results Laboratory Results: 01/22/20 04:49 01/22/20 04:49 01/22/20 01/22/20 04:49 04:49 WBC 7.4 RBC 4.67 Hgb 14.8 Hct 43.1 MCV 92 MCH 31.8 MCHC 34.4 RDW 13.4 Plt Count 117 L Seg Neutrophils % 55.2 Sodium 139.0 Potassium 3.8 Chloride 107 Carbon Dioxide 26 Anion Gap 6 BUN 11 Creatinine 0.98 Est GFR ( Amer) > 60 Glucose 106 Calcium 8.7 Impressions: Finger X-Ray 01/21/20 14:48 IMPRESSION: No fracture or foreign body. Assessment and Plan - Diagnosis (1) Cellulitis of finger of left hand Is this a current diagnosis for this admission?: Yes Plan: Patient is admitted to the medical floor. Received IV Unasyn; transition to p.o. Augmentin tonight. Blood cultures negative at 24 hours. Orthopedics has been consulted; approved patient for discharge home on oral antibiotics. (2) Tobacco dependence Is this a current diagnosis for this admission?: Yes Plan: Smoking cessation encouraged. Declines nicotine replacement therapies. (3) Bipolar disorder Qualifiers: Active/Remission status: in full remission Most recent bipolar episode type: mixed Qualified Code(s): F31.78 - Bipolar disorder, in full remission, most recent episode mixed Is this a current diagnosis for this admission?: Yes Plan: Continue home dose Abilify and Dilantin (4) Iatrogenic hypotension Is this a current diagnosis for this admission?: Yes Plan: Secondary to Percocet. Associated with diaphoresis and nausea/vomiting. D/c Oxycodone. Will trial Tramadol for pain. IVF overnight. Antiemetics as needed. - Time Time Spent with patient: 25-34 minutes Medications reviewed and adjusted accordingly: Yes Anticipated discharge: Home Within: within 24 hours
[2020-01-22] MEDS: NORMAL SALINE 1000 ML 1,000 ML IV PRN (18:28)
[2020-01-22] MEDS: AMOXICILLIN TR/POT CLAVULANATE 875-125 MG TAB PO SCH (21:34)
[2020-01-22] MEDS: TEMAZEPAM 7.5 MG CAPSULE PO SCH (21:34)
[2020-01-23] MEDS: PHENYTOIN SODIUM EXTENDED 100 MG CAPSULE PO SCH (06:41)
[2020-01-23] MEDS: HEPARIN SOD (PORCINE) 5,000 UNIT/ML 1 ML VIAL SUBCUT SCH (06:42)
[2020-01-23] MEDS: NORMAL SALINE 1000 ML 1,000 ML IV PRN (06:43)
[2020-01-23] MEDS: FAMOTIDINE 20 MG TABLET PO SCH (09:17)
[2020-01-23] MEDS: AMOXICILLIN TR/POT CLAVULANATE 875-125 MG TAB PO SCH (09:17)
[2020-01-23] MEDS: ARIPIPRAZOLE 5 MG TABLET PO SCH (09:17)
[2020-01-23 09:20] VITALS: BP 108/55
--- NOTE | 2020-01-23 17:35 | PDOC DISCHARGE SUMMARY ---
Impression - Admit/DC Date/PCP Admission Date/Primary Care Provider: 01/21/20 18:44 Discharge Date: 01/23/20 - Discharge Diagnosis (1) Cellulitis of finger of left hand Is this a current diagnosis for this admission?: Yes (2) Tobacco dependence Is this a current diagnosis for this admission?: Yes (3) Bipolar disorder Is this a current diagnosis for this admission?: Yes (4) Iatrogenic hypotension Is this a current diagnosis for this admission?: Yes - Additional Information Resuscitation Status: Full Code Discharge Diet: Regular Discharge Activity: Activity As Tolerated, Balance Activity w/Rest, Other Referrals: THU AUGUSTINE NP [NO LOCAL MD] - Follow up as needed (FOLLOW UP NEEDED) Prescriptions: Amoxicillin/Potassium Clav [Augmentin 875-125 Tablet] 1 tab PO Q12 #20 tablet Tramadol HCl [Ultram 50 mg Tablet] 1 - 2 tab PO Q6HP PRN #20 tablet PRN Reason: Home Medications: Aripiprazole [Abilify 5 mg Tablet] 5 mg PO DAILY 01/21/20 Phenytoin Sodium Extended [Dilantin 100 mg Capsule.er] 100 mg PO Q8 01/21/20 Acetaminophen [Tylenol 325 mg Tablet] 650 mg PO Q4HP PRN tablet 01/23/20 Amoxicillin/Potassium Clav [Augmentin 875-125 Tablet] 1 tab PO Q12 #20 tablet 01/23/20 Tramadol HCl [Ultram 50 mg Tablet] 1 - 2 tab PO Q6HP PRN #20 tablet 01/23/20 History of Present Illiness History of Present Illness: ROD TOTH is a 24 year old male with a past medical history significant for seizures, arthritis, anxiety, ADHD, bipolar, depression, OCD, PTSD, schizophrenia who presented to the emergency department today with left fifth digit erythema and edema following puncture injury yesterday evening. Patient denies fevers, chills. He reports the pain is localized to his fifth finger. He has limited flexion (likely secondary to edema) and extension of the digit as full range of motion to his remaining fingers and wrist. Evaluation in the emergency department was essentially benign with normal vital signs, CBC, chemistry. X-ray demonstrated edema but no foreign body, fracture, or worrying lesions. The emergency department provider has reached out to orthopedics for guidance; awaiting their recommendations. In the interim, he was provided IV Unasyn and referred to the hospitalist service for admission and management of the above-stated complaints findings. Hospital Course Hospital Course: (1) Cellulitis of finger of left hand Patient was admitted to the medical floor. Received IV Unasyn; transition to p.o. Augmentin tonight. Blood cultures negative at 48 hours. Orthopedics was consulted; approved patient for discharge home on oral antibiotics. (2) Tobacco dependence Smoking cessation encouraged. Declines nicotine replacement therapies. (3) Bipolar disorder Continue home dose Abilify and Dilantin (4) Iatrogenic hypotension Secondary to Percocet. Associated with diaphoresis and nausea/vomiting. D/c Oxycodone. Will trial Tramadol for pain. Continued IVF overnight. Antiemetics as needed. No further episodes of hypotention. Physical Exam Vital Signs: Temp Pulse Resp BP Pulse Ox 97.4 F 68 18 108/55 L 95 01/23/20 09:18 01/23/20 09:18 01/23/20 09:18 01/23/20 09:18 01/23/20 09:18 Intake & Output 01/22/20 01/23/20 01/24/20 06:59 06:59 06:59 Intake Total 650 2110 Balance 650 2110 Weight 88.7 kg 88.7 kg General appearance: PRESENT: no acute distress, cooperative, well-developed, well-nourished - overweight Head exam: PRESENT: atraumatic, normocephalic Eye exam: PRESENT: conjunctiva pink, EOMI, PERRLA. ABSENT: scleral icterus Mouth exam: PRESENT: moist, tongue midline Respiratory exam: PRESENT: clear to auscultation zeeshan, symmetrical, unlabored. ABSENT: rales, rhonchi, wheezes Cardiovascular exam: PRESENT: RRR, +S1, +S2. ABSENT: diastolic murmur, rubs, systolic murmur Vascular exam: PRESENT: normal capillary refill Extremities exam: PRESENT: full ROM. ABSENT: calf tenderness, clubbing, pedal edema Neurological exam: PRESENT: alert, awake, oriented to person, oriented to place, oriented to time, oriented to situation, CN II-XII grossly intact. ABSENT: motor sensory deficit Psychiatric exam: PRESENT: appropriate affect, normal mood. ABSENT: homicidal ideation, suicidal ideation Skin exam: PRESENT: dry, intact, warm. ABSENT: cyanosis, rash Results Laboratory Results: WBC 7.4 10^3/uL (4.0-10.5) 01/22/20 04:49 RBC 4.67 10^6/uL (4.35-5.55) 01/22/20 04:49 Hgb 14.8 g/dL (13.5-17.0) 01/22/20 04:49 Hct 43.1 % (37.9-51.0) 01/22/20 04:49 MCV 92 fl (80-97) 01/22/20 04:49 MCH 31.8 pg (27.0-33.4) 01/22/20 04:49 MCHC 34.4 g/dL (32.0-36.0) 01/22/20 04:49 RDW 13.4 % (11.5-14.0) 01/22/20 04:49 Plt Count 117 10^3/uL (150-450) L 01/22/20 04:49 Lymph % (Auto) 30.4 % (13-45) 01/22/20 04:49 [place] % (Auto) 9.5 % (3-13) 01/22/20 04:49 Eos % (Auto) 4.1 % (0-6) 01/22/20 04:49 Baso % (Auto) 0.8 % (0-2) 01/22/20 04:49 Absolute Neuts (auto) 4.1 10^3/uL (1.7-8.2) 01/22/20 04:49 Absolute Lymphs (auto) 2.3 10^3/uL (0.5-4.7) 01/22/20 04:49 Absolute Monos (auto) 0.7 10^3/uL (0.1-1.4) 01/22/20 04:49 Absolute Eos (auto) 0.3 10^3/uL (0.0-0.6) 01/22/20 04:49 Absolute Basos (auto) 0.1 10^3/uL (0.0-0.2) 01/22/20 04:49 Seg Neutrophils % 55.2 % (42-78) 01/22/20 04:49 ESR 4 mm/hr (0-15) 01/21/20 16:18 Sodium 139.0 mmol/L (137-145) 01/22/20 04:49 Potassium 3.8 mmol/L (3.6-5.0) 01/22/20 04:49 Chloride 107 mmol/L (98-107) 01/22/20 04:49 Carbon Dioxide 26 mmol/L (22-30) 01/22/20 04:49 Anion Gap 6 (5-19) 01/22/20 04:49 BUN 11 mg/dL (7-20) 01/22/20 04:49 Creatinine 0.98 mg/dL (0.52-1.25) 01/22/20 04:49 Est GFR ( Amer) > 60 (>60) 01/22/20 04:49 Est GFR (MDRD) Non-Af > 60 (>60) 01/22/20 04:49 Glucose 106 mg/dL (75-110) 01/22/20 04:49 Lactic Acid 0.7 mmol/L (0.7-2.1) 01/21/20 16:18 Calcium 8.7 mg/dL (8.4-10.2) 01/22/20 04:49 Total Bilirubin 0.5 mg/dL (0.2-1.3) 01/21/20 16:18 Direct Bilirubin 0.0 mg/dL (0.0-0.4) 01/21/20 16:18 Neonat Total Bilirubin Not Reportable 01/21/20 16:18 Neonat Direct Bilirubin Not Reportable 01/21/20 16:18 Neonat Indirect Bili Not Reportable 01/21/20 16:18 AST 30 U/L (17-59) 01/21/20 16:18 ALT 46 U/L (<50) 01/21/20 16:18 Alkaline Phosphatase 73 U/L (38-126) 01/21/20 16:18 C-Reactive Protein < 5.0 mg/L (<10.0) 01/21/20 16:18 Total Protein 7.0 g/dL (6.3-8.2) 01/21/20 16:18 Albumin 4.4 g/dL (3.5-5.0) 01/21/20 16:18 SARS-CoV-2 (PCR) NEGATIVE (NEGATIVE) 01/21/20 22:30 Impressions: Finger X-Ray 06/04/20 14:48 IMPRESSION: No fracture or foreign body. Plan Plan of Treatment: Patient is discharge home in stable condition. Continue to soak hand in warm, soapy, water 4 times a day. Complete full course of antibiotics. Follow up with PCP as needed. Return to the emergency department as needed for concerning symptoms. Time Spent: Greater than 30 Minutes Stroke Is this a Stroke Patient?: No Acute Heart Failure - Is this a Heart Failure Patient?: No
== END 2020-01-23 09:55 | disposition home or self-care (01) ==
LOC: ER 14:13 → EH 18:44 → 4W 20:35
PROVIDERS: ADMIT Hospitalist; ATTEND Registered Nurse
DX: L03.012 Cellulitis of left finger (principal); I95.89 Other hypotension; I95.2 Hypotension due to drugs; R61 Generalized hyperhidrosis; R11.2 Nausea with vomiting, unspecified; T39.1X5A Adverse effect of 4-Aminophenol derivatives, initial encounter; Y92.239 Unspecified place in hospital as the place of occurrence of the external cause; F17.210 Nicotine dependence, cigarettes, uncomplicated; F31.78 Bipolar disorder, in full remission, most recent episode mixed; R56.9 Unspecified convulsions; M19.90 Unspecified osteoarthritis, unspecified site; F12.10 Cannabis abuse, uncomplicated; Z23 Encounter for immunization; Z03.818 Encounter for observation for suspected exposure to other biological agents ruled out
CPT/HCPCS: 99284; 96375; 96365; 96367; 36415 ×2; 87040; 83605; 85025 ×2; 85652; 86140; 80048; 80053; 73140; 90714; G0378 ×4; U0003; A9270 ×12; J0295 ×3; J1885; J0696; J2405; J7030 ×2; J3490 ×2; C9803; 87635; 90471; G0008

== ENCOUNTER 2020-01-28 10:04 | Emergency (ER) | payer MEDICARE, MEDICAID ==
[2020-01-28] MEDS ORDERED: ONDANSETRON HCL INJ/PF 4 MG/2 ML SDV IV ONE (10:34)
[2020-01-28] MEDS ORDERED: NORMAL SALINE 1000 ML 1,000 ML IV ONE (10:35)
--- NOTE | 2020-01-28 10:42 | ER Document Report ---
ED GI/ - General Chief Complaint: Nausea/Vomiting Stated Complaint: VOMITING/NAUSEA Time Seen by Provider: 01/28/20 10:11 Notes: CHIEF COMPLAINT: Vomiting HPI: 24-year-old male presenting for nausea vomiting over the last 3 days. Patient states he was discharged from the hospital 5 days ago for a finger infection. Is on amoxicillin still also on tramadol. Had multiple episodes of nausea vomiting over the last 3 days. Has not followed up with anyone post discharge. No fever no abdominal pain no chest pain no shortness of breath sta tristan that the swelling and pain in the left fifth finger is resolved ROS: See HPI - all other systems were reviewed and are otherwise negative Constitutional: no fever Eyes: no drainage, no blurred vision ENT: + runny nose, no sore throat Cardiovascular: no chest pain Resp: no SOB, no cough GI: + vomiting, no diarrhea, no abdominal pain : no dysuria Integumentary: no rash Allergy: no hives Musculoskeletal: no extremity pain or swelling Neurological: no numbness/tingling, no weakness MEDICATIONS: I agree with the patient medications as charted by the RN. ALLERGIES: I agree with the allergies as charted by the RN. PAST MEDICAL HISTORY/PAST SURGICAL HISTORY: Reviewed and agree as charted by RN. SOCIAL HISTORY: Reviewed and agree as charted by RN. FAMILY HISTORY: No significant familial comorbid conditions directly related to patient complaint EXAM: Reviewed vital signs as charted by RN. CONSTITUTIONAL: Alert and oriented and responds appropriately to questions. Well-appearing; well-nourished HEAD: Normocephalic; atraumatic EYES: PERRL; Conjunctivae clear, sclerae non-icteric ENT: normal nose; clear rhinorrhea; moist mucous membranes; pharynx without lesions noted, no uvula edema or deviation, no tonsillar hypertrophy, phonation normal NECK: Supple without meningismus; non-tender; no cervical lymphadenopathy, no masses CARD: RRR; no murmurs, no clicks, no rubs, no gallops; symmetric distal pulses RESP: Normal chest excursion without splinting or tachypnea; breath sounds clear and equal bilaterally; no wheezes, no rhonchi, no rales, pulse oximetry ABD/GI: Normal bowel sounds; non-distended; soft, non-tender, no rebound, no guarding; no palpable organomegaly or masses. BACK: The back appears normal and is non-tender to palpation, there is no CVA tenderness EXT: Normal ROM in all joints; non-tender to palpation; no cyanosis, no effusions, no edema SKIN: Normal color for age and race; warm; dry; good turgor; no acute lesions noted NEURO: Moves all extremities equally; Motor and sensory function intact PSYCH: The patient's mood and manner are appropriate. Grooming and personal hygiene are appropriate. MDM: 24-year-old male presenting for nausea vomiting over the last 3 days. No abdominal pain on exam. Not significantly tachycardic. Will check baseline screening as given the recent admission give fluids and antiemetics and reassess. Patient had a negative COVID study 1 week ago at his time of admission TRAVEL OUTSIDE OF THE [place] IN LAST 30 DAYS: No - Related Data Allergies/Adverse Reactions: No Known Allergies Allergy (Verified 01/28/20 11:14) Past Medical History - Social History Smoking Status: Unknown if Ever Smoked Family History: Reviewed & Not Pertinent, Other - Mother with multiple sclerosis Neurological Medical History: Reports: Hx Seizures Renal/ Medical History: Denies: Hx Peritoneal Dialysis Musculoskeletal Medical History: Reports Hx Arthritis Psychiatric Medical History: Reports: Hx Anxiety, Hx Attention Deficit Hyperactivity Disorder, Hx Bipolar Disorder, Hx Depression, Hx Obsessive Compulsive Disorder, Hx Post Traumatic Stress Disorder, Hx Schizophrenia Traumatic Medical History: Reports: Hx Fractures Past Surgical History: Reports: Hx Herniorrhaphy - Immunizations Immunizations up to date: Yes Hx Diphtheria, Pertussis, Tetanus Vaccination: Yes Physical Exam - Vital signs Vitals: Temp 98.2 F 01/28/20 10:05 Course - Re-evaluation Re-evalutation: 01/28/20 12:29 Patient's lab work is normal. Tolerating oral fluids. Will discharge home for Zofran follow-up PCP - Vital Signs Vital signs: Temp Pulse Resp BP Pulse Ox 98.2 F 60 14 123/78 96 01/28/20 10:13 01/28/20 10:13 01/28/20 10:13 01/28/20 10:13 01/28/20 10:13 - Laboratory Result Diagrams: 01/28/20 10:45 01/28/20 10:45 Laboratory results interpreted by me: 01/28/20 01/28/20 10:45 10:45 Plt Count 147 L Urine Protein 30 H Urine Urobilinogen 2.0 H Discharge - Discharge Clinical Impression: Vomiting Qualifiers: Vomiting type: unspecified Vomiting Intractability: non-intractable Nausea presence: with nausea Qualified Code(s): R11.2 - Nausea with vomiting, unspecified Condition: Stable Disposition: HOME, SELF-CARE Additional Instructions: Take Zofran for vomiting or nausea. Push fluids at home. Follow-up with your primary care provider for reevaluation of your symptoms call for appointment. Return for any worsening condition. Your lab work today was all normal Prescriptions: Ondansetron [Zofran Odt 4 mg Tablet] 1 - 2 tab PO Q4H PRN #15 tab.rapdis PRN Reason: For Nausea/Vomiting Referrals: CHRISTOPHER PRUITT DO [NO LOCAL MD] - Follow up as needed
[2020-01-28 11:12] LABS: ABSOLUTE BASOPHILS # (AUTO) 0.1 10^3/uL (0.0-0.2); ABSOLUTE EOSINOPHILS # (AUTO) 0.4 10^3/uL (0.0-0.6); ABSOLUTE LYMPHOCYTES (AUTO) 1.7 10^3/uL (0.5-4.7); ABSOLUTE MONOCYTES (AUTO) 0.8 10^3/uL (0.1-1.4); ABSOLUTE NEUT (AUTO) 4.8 10^3/uL (1.7-8.2); BASOPHILS % (AUTO) 0.7 % (0-2); EOSINOPHILS % (AUTO) 4.7 % (0-6); HEMATOCRIT 46.7 % (37.9-51.0); HEMOGLOBIN 16.3 g/dL (13.5-17.0); LYMPHOCYTES % (AUTO) 22.5 % (13-45); MEAN CORPUSCULAR HEMOGLOBIN 31.8 pg (27.0-33.4); MEAN CORPUSCULAR HGB CONC 34.9 g/dL (32.0-36.0); MEAN CORPUSCULAR VOLUME 91 fl (80-97); MONOCYTES % (AUTO) 10.5 % (3-13); PLATELET COUNT 147 10^3/uL (150-450); RED BLOOD COUNT 5.13 10^6/uL (4.35-5.55); RED CELL DISTRIBUTION WIDTH 13.1 % (11.5-14.0); SEGMENTED NEUTROPHILS % (AUTO) 61.6 % (42-78); TOTAL CELLS COUNTED % (AUTO) 100 %; WHITE BLOOD COUNT 7.7 10^3/uL (4.0-10.5)
[2020-01-28 11:29] LABS: APPEARANCE,URINE SLIGHTLY-CLOUDY; BILIRUBIN,URINE NEGATIVE (NEGATIVE); GLUCOSE, URINE NEGATIVE (NEGATIVE); KETONES,URINE NEGATIVE (NEGATIVE); LEUKOCYTE ESTERASE,URINE NEGATIVE (NEGATIVE); NITRITE,URINE NEGATIVE (NEGATIVE); PROTEIN,URINE 30 mg/dL (NEGATIVE); URINE SPECIFIC GRAVITY 1.032
[2020-01-28 11:30] LABS: ALBUMIN 4.4 g/dL (3.5-5.0); ALKALINE PHOSPHATASE 70 U/L (38-126); ANION GAP 7 (5-19); ASPARTATE AMINO TRANSFERASE 27 U/L (17-59); BILIRUBIN,TOTAL 0.7 mg/dL (0.2-1.3); BLOOD UREA NITROGEN 11 mg/dL (7-20); CALCIUM 9.5 mg/dL (8.4-10.2); CARBON DIOXIDE 28 mmol/L (22-30); CHLORIDE 102 mmol/L (98-107); GLUCOSE 94 mg/dL (75-110); POTASSIUM 4.1 mmol/L (3.6-5.0); TOTAL PROTEIN 7.1 g/dL (6.3-8.2)
[2020-01-28 11:31] LABS: COLOR,URINE YELLOW
[2020-01-28 11:37] LABS: URINE AMPHETAMINES SCREEN NEGATIVE; URINE BARBITURATES SCREEN NEGATIVE; URINE BENZODIAZEPINES SCREEN NEGATIVE; URINE COCAINE SCREEN NEGATIVE; URINE MARIJUANA (THC) SCREEN NEGATIVE; URINE METHADONE SCREEN NEGATIVE; URINE PHENCYCLIDINE SCREEN NEGATIVE
[2020-01-28 12:59] VITALS: BP 122/74
== END 2020-01-28 12:50 | disposition home or self-care (01) ==
LOC: ER 10:04
DX: R11.2 Nausea with vomiting, unspecified (principal); L08.9 Local infection of the skin and subcutaneous tissue, unspecified
CPT/HCPCS: 99283; 96361; 96374; 36415; 83690; 85025; 80053; 81001; 80307; J2405; J7030

== ENCOUNTER 2020-02-07 12:20 | Emergency (ER) | payer MEDICARE, MEDICAID ==
--- NOTE | 2020-02-07 13:14 | ER Document Report ---
ED Medical Screen (RME) - General Chief Complaint: Rectal Pain Stated Complaint: RECTAL PAIN/BLEEDING Time Seen by Provider: 02/07/20 13:09 Mode of Arrival: Wheelchair Information source: Patient Notes: HPI; 24-year-old male presents to the emergency room complaining of rectal pain for the past 2 days. History of hemorrhoids. Today he states he went to the bathroom and noticed blood in the toilet bowl. Denies nausea, vomiting, abdominal pain. PE: Alert and oriented x3. Moderate distress noted. Lungs: Clear to auscultation without rales, rhonchi, wheezes. Heart: Regular rate and rhythm without murmurs, rubs, gallops. Unable to do rectal exam secondary to being in triage I have greeted and performed a rapid initial assessment of this patient. A comprehensive ED assessment and evaluation of the patient, analysis of test results and completion of the medical decision making process will be conducted by additional ED providers. I have specifically instructed the patient or family members with the patient to immediately return to any nursing staff should anything change in the patient's condition or with their chief complaint. TRAVEL OUTSIDE OF THE [place] IN LAST 30 DAYS: No - Related Data Allergies/Adverse Reactions: No Known Allergies Allergy (Verified 02/07/20 13:08) Past Medical History Neurological Medical History: Reports: Hx Seizures Renal/ Medical History: Denies: Hx Peritoneal Dialysis Musculoskeltal Medical History: Reports Hx Arthritis Psychiatric Medical History: Reports: Hx Anxiety, Hx Attention Deficit Hyperactivity Disorder, Hx Bipolar Disorder, Hx Depression, Hx Obsessive Compulsive Disorder, Hx Post Traumatic Stress Disorder, Hx Schizophrenia Traumatic Medical History: Reports: Hx Fractures Past Surgical History: Reports: Hx Herniorrhaphy - Immunizations Immunizations up to date: Yes Hx Diphtheria, Pertussis, Tetanus Vaccination: Yes Physical Exam - Vital signs Vitals: Temp Pulse Resp BP Pulse Ox 99.1 F 102 H 16 111/60 96 02/07/20 12:02/07/20 12:02/07/20 12:02/07/20 12:02/07/20 12:27 Course - Vital Signs Vital signs: Temp Pulse Resp BP Pulse Ox 99.1 F 102 H 16 111/60 96 02/07/20 12:02/07/20 12:02/07/20 12:02/07/20 12:27 02/07/20 12:27
[2020-02-07 14:03] LABS: ABSOLUTE BASOPHILS # (AUTO) 0.1 10^3/uL (0.0-0.2); ABSOLUTE EOSINOPHILS # (AUTO) 0.2 10^3/uL (0.0-0.6); ABSOLUTE LYMPHOCYTES (AUTO) 1.4 10^3/uL (0.5-4.7); ABSOLUTE MONOCYTES (AUTO) 0.8 10^3/uL (0.1-1.4); ABSOLUTE NEUT (AUTO) 4.5 10^3/uL (1.7-8.2); BASOPHILS % (AUTO) 1.1 % (0-2); EOSINOPHILS % (AUTO) 2.8 % (0-6); HEMATOCRIT 43.9 % (37.9-51.0); HEMOGLOBIN 15.5 g/dL (13.5-17.0); LYMPHOCYTES % (AUTO) 20.4 % (13-45); MEAN CORPUSCULAR HEMOGLOBIN 32.1 pg (27.0-33.4); MEAN CORPUSCULAR HGB CONC 35.2 g/dL (32.0-36.0); MEAN CORPUSCULAR VOLUME 91 fl (80-97); MONOCYTES % (AUTO) 11.5 % (3-13); PLATELET COUNT 138 10^3/uL (150-450); RED BLOOD COUNT 4.82 10^6/uL (4.35-5.55); RED CELL DISTRIBUTION WIDTH 13.6 % (11.5-14.0); SEGMENTED NEUTROPHILS % (AUTO) 64.2 % (42-78); TOTAL CELLS COUNTED % (AUTO) 100 %
[2020-02-07 14:15] LABS: ALBUMIN 4.3 g/dL (3.5-5.0); ALKALINE PHOSPHATASE 70 U/L (38-126); ANION GAP 6 (5-19); ASPARTATE AMINO TRANSFERASE 36 U/L (17-59); BILIRUBIN,TOTAL 0.6 mg/dL (0.2-1.3); BLOOD UREA NITROGEN 10 mg/dL (7-20); CALCIUM 9.5 mg/dL (8.4-10.2); CARBON DIOXIDE 26 mmol/L (22-30); CHLORIDE 105 mmol/L (98-107); GLUCOSE 94 mg/dL (75-110); POTASSIUM 4.2 mmol/L (3.6-5.0); TOTAL PROTEIN 7.1 g/dL (6.3-8.2)
--- NOTE | 2020-02-07 15:34 | ER Document Report ---
HPI - HPI Time Seen by Provider: 02/07/20 13:09 Pain Level: 5 Notes: 24-year-old male patient presents the emergency department concern for possible rectal bleeding. Patient reports he has a long history of having hemorrhoids but he has never had one bleed. Today he was out to lunch and he went to the bathroom and had a bowel movement. After the bowel movement he had a few spots of bright red blood in the toilet. Patient reports this scared him so he decided to come to the emergency department. He has never had blood in his stool before. He denies any abdominal pain, nausea, vomiting or fever. He does report intermittent constipation. - ROS Systems Reviewed and Negative: Yes All other systems reviewed and negative - GASTROINTESTINAL Gastrointestinal: REPORTS: Black / Bloody Stools - Blood in stool after bowel mov - REPRODUCTIVE Reproductive: DENIES: : Past Medical History - General Information source: Patient - Social History Smoking Status: Current Every Day Smoker Chew tobacco use (# tins/day): No Frequency of alcohol use: Occasional Drug Abuse: Marijuana Family History: Reviewed & Not Pertinent, Other - Mother with multiple sclerosis Patient has homicidal ideation: No Neurological Medical History: Reports: Hx Seizures Renal/ Medical History: Denies: Hx Peritoneal Dialysis Musculoskeletal Medical History: Reports Hx Arthritis Psychiatric Medical History: Reports: Hx Anxiety, Hx Attention Deficit Hyperactivity Disorder, Hx Bipolar Disorder, Hx Depression, Hx Obsessive Compulsive Disorder, Hx Post Traumatic Stress Disorder, Hx Schizophrenia Traumatic Medical History: Reports: Hx Fractures Past Surgical History: Reports: Hx Herniorrhaphy - Immunizations Immunizations up to date: Yes Hx Diphtheria, Pertussis, Tetanus Vaccination: Yes Vertical Provider Document - CONSTITUTIONAL Notes: PHYSICAL EXAMINATION: GENERAL: Well-appearing, well-nourished and in no acute distress. HEAD: Atraumatic, normocephalic. EYES: Pupils equal round extraocular movements intact, conjunctiva are normal. ENT: Nares patent NECK: Normal range of motion Abdomen: Abdomen soft, nontender, no guarding no rebound. Rectum: No obvious external hemorrhoids, internal hemorrhoid palpated, no active bleeding noted. LUNGS: No respiratory distress Musculoskeletal: Normal range of motion NEUROLOGICAL: Normal speech, normal gait. PSYCH: Normal mood, normal affect. SKIN: Warm, Dry, normal turgor, no rashes or lesions noted. - INFECTION CONTROL TRAVEL OUTSIDE OF THE [place] IN LAST 30 DAYS: No Course - Re-evaluation Re-evalutation: Patient has an internal hemorrhoid that was likely bleeding earlier today. There is no active bleeding noted at this time. Patient will be prescribed Anusol and also some MiraLAX to aid in softening his stools. 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 - Vital Signs Vital signs: Temp Pulse Resp BP Pulse Ox 99.1 F 102 H 16 111/60 96 02/07/20 13:08 02/07/20 12:27 02/07/20 12:27 02/07/20 12:27 02/07/20 12:27 - Laboratory Result Diagrams: 02/07/20 13:45 02/07/20 13:45 Laboratory results interpreted by me: 02/07/20 02/07/20 13:45 13:45 Plt Count 138 L ALT 54 H Discharge - Discharge Clinical Impression: Internal bleeding hemorrhoids Condition: Stable Disposition: HOME, SELF-CARE Additional Instructions: Hemorrhoids You have hemorrhoids. These are formed by enlargement of veins around the anus. The cause is increased pressure in the veins, from or straining at bowel movements. Hemorrhoids often cause itching and bleeding with bowel movements. When a hemorrhoid becomes clotted, severe pain and swelling result. Soothing creams and suppositories are often prescribed. Warm sitz-baths may also decrease pain, swelling, and itching. Eat a high-fiber diet. Stool softeners such as Metamucil will help. Keep the area very clean. Medicated cleansing pads (such as Tucks) are useful after bowel movements. A hose-mounted shower unit (like a shower massager at low water pressure) can be used to clean around tender hemorrhoid tags. You should call the doctor or return if you develop fever, increasing pain, or an enlarging mass around the anus, or if you simply fail to improve with treatment. Please take medications as prescribed. Return to the emergency department with any new or worsening complaints. Prescriptions: Hydrocortisone Acetate [Anusol Hc 25 mg Supp.rect] 1 supp.rect AL BID #14 supp.rect Polyethylene Glycol 3350 [Miralax] 1 cap PO BID #527 powder
[2020-02-07 15:45] VITALS: BP 102/71
== END 2020-02-07 15:45 | disposition home or self-care (01) ==
LOC: ER 12:20
DX: K64.8 Other hemorrhoids (principal); F17.200 Nicotine dependence, unspecified, uncomplicated; F12.10 Cannabis abuse, uncomplicated
CPT/HCPCS: 36415; 80053; 85025; 99283

== ENCOUNTER 2020-02-08 22:20 | Emergency (ER) | payer MEDICARE, MEDICAID ==
--- NOTE | 2020-02-08 22:59 | ER Document Report ---
ED Medical Screen (RME) - General Chief Complaint: Hemorrhoids Stated Complaint: ABDOMINAL PAIN Time Seen by Provider: 02/08/20 22:45 Mode of Arrival: Medic Information source: Patient Notes: 24-year-old male patient well-known to this emergency department presents with concern for possible constipation and rectal pain. Patient reports he was seen here 2 days ago, diagnosed with an internal hemorrhoid. He states he was put on MiraLAX and given Anusol suppositories. He states he has been taking the medications as prescribed however he is now not able to have a bowel movement. He is complaining of severe rectal pain and also now abdominal cramping. He reports that the blood that he was having has now resolved. Patient hunched over in a wheelchair, will not allow for thorough abdominal evaluation. Full evaluation will be done in the back. Patient is alert, oriented, no acute distress noted. I have greeted and performed a rapid initial assessment of this patient. A comprehensive ED assessment and evaluation of the patient, analysis of test results and completion of the medical decision making process will be conducted by additional ED providers. I have specifically instructed the patient or family members with the patient to immediately return to any nursing staff should anything change in the patient's condition or with their chief complaint. TRAVEL OUTSIDE OF THE [place] IN LAST 30 DAYS: No - Related Data Allergies/Adverse Reactions: No Known Allergies Allergy (Verified 02/08/20 22:44) Home Medications: DILANTIN. ABILITY. MILRALAX. SUPPOSITORIES. Past Medical History - Social History Frequency of alcohol use: None Drug Abuse: Marijuana Neurological Medical History: Reports: Hx Seizures Renal/ Medical History: Denies: Hx Peritoneal Dialysis Musculoskeltal Medical History: Reports Hx Arthritis Psychiatric Medical History: Reports: Hx Anxiety, Hx Attention Deficit Hyperactivity Disorder, Hx Bipolar Disorder, Hx Depression, Hx Obsessive Compulsive Disorder, Hx Post Traumatic Stress Disorder, Hx Schizophrenia Traumatic Medical History: Reports: Hx Fractures Past Surgical History: Reports: Hx Herniorrhaphy - Immunizations Immunizations up to date: Yes Hx Diphtheria, Pertussis, Tetanus Vaccination: Yes Physical Exam - Vital signs Vitals: Temp Pulse Resp BP Pulse Ox 98.8 F 112 H 18 104/72 96 02/08/20 22:39 02/08/20 22:39 02/08/20 22:39 02/08/20 22:39 02/08/20 22:39 Course - Vital Signs Vital signs: Temp Pulse Resp BP Pulse Ox 98.8 F 112 H 18 104/72 96 02/08/20 22:45 02/08/20 22:39 02/08/20 22:39 02/08/20 22:39 02/08/20 22:39
--- NOTE | 2020-02-09 01:37 | RADIOLOGY REPORT (SQ) ---
EXAM DESCRIPTION: X-ray abdomen 1 view CLINICAL DATA: Abdominal cramping, evaluate for constipation. TECHNICAL DATA: A single AP supine x-ray of the abdomen was performed on 02/09/2020 at 12:49 AM. Comparison: 06/30/2019. FINDINGS: The bowel gas pattern is nonspecific and nonobstructive. There is mild fecal residue scattered throughout the colon. There is no evidence of a fecal impaction. No pathologic abdominal or pelvic calcifications are identified. No abnormal air collections are identified. No focal soft tissue abnormalities are seen. No acute osseous abnormalities are identified. IMPRESSION: Nonspecific nonobstructive bowel gas pattern. There is mild fecal residue scattered throughout the colon.
[2020-02-09] MEDS ORDERED: ACETAMINOPHEN 325 MG TABLET PO ONE (03:12)
--- NOTE | 2020-02-09 03:16 | ER Document Report ---
Entered by FLORA MACEDO SCRIBE 02/09/20 0248 Acting as scribe for:JUSTA DIAZ DO ED GI/ - General Chief Complaint: Hemorrhoids Stated Complaint: ABDOMINAL PAIN Time Seen by Provider: 02/08/20 22:45 Mode of Arrival: Medic Information source: Patient Notes: This 24 year old male patient presents to the ED today with complaints of possible constipation and rectal pain related to an internal hemorrhoid that was diagnosed x2 days ago here in the ED. Patient received a prescription for Miralax and Anusol suppositories which has he has been taking as prescribed, but he is now complaining of severe rectal pain when he tries to have a bowel movement and abdominal cramping. He notes that the rectal bleeding he was having from the hemorrhoid has now resolved. TRAVEL OUTSIDE OF THE U[place] IN LAST 30 DAYS: No - Related Data Allergies/Adverse Reactions: No Known Allergies Allergy (Verified 02/08/20 22:44) Home Medications: DILANTIN. ABILITY. MILRALAX. SUPPOSITORIES. Past Medical History - General Information source: Patient - Social History Smoking Status: Current Every Day Smoker Cigarette use (# per day): Yes Chew tobacco use (# tins/day): No Smoking Education Provided: No Frequency of alcohol use: None Drug Abuse: Marijuana Family History: Reviewed & Not Pertinent, Other - Mother with multiple sclerosis Patient has suicidal ideation: No Patient has homicidal ideation: No Neurological Medical History: Reports: Hx Seizures Musculoskeletal Medical History: Reports Hx Arthritis Psychiatric Medical History: Reports: Hx Anxiety, Hx Attention Deficit Hyperactivity Disorder, Hx Bipolar Disorder, Hx Depression, Hx Obsessive Compulsive Disorder, Hx Post Traumatic Stress Disorder, Hx Schizophrenia Traumatic Medical History: Reports: Hx Fractures Past Surgical History: Reports: Hx Herniorrhaphy - Immunizations Immunizations up to date: Yes Hx Diphtheria, Pertussis, Tetanus Vaccination: Yes Review of Systems - Review of Systems Constitutional: No symptoms reported EENT: No symptoms reported Cardiovascular: No symptoms reported Respiratory: No symptoms reported Gastrointestinal: See HPI, Abdominal pain, Constipation, Other - Rectal pain. denies: Rectal bleeding Genitourinary: No symptoms reported Male Genitourinary: No symptoms reported Musculoskeletal: No symptoms reported Skin: No symptoms reported Hematologic/Lymphatic: No symptoms reported Neurological/Psychological: No symptoms reported -: Yes All other systems reviewed and negative Physical Exam - Vital signs Vitals: Temp Pulse Resp BP Pulse Ox 98.8 F 112 H 18 104/72 96 02/08/20 22:39 02/08/20 22:39 02/08/20 22:39 02/08/20 22:39 02/08/20 22:39 Interpretation: Normal - General General appearance: Alert In distress: None - HEENT Head: Normocephalic, Atraumatic Eyes: Normal Pupils: PERRL - Respiratory Respiratory status: No respiratory distress Chest status: Nontender Breath sounds: Normal Chest palpation: Normal - Cardiovascular Rhythm: Regular Heart sounds: Normal auscultation Murmur: No Friction rub: No Gallop: None auscultated - Abdominal Inspection: Normal Distension: No distension Bowel sounds: Normal Tenderness: Nontender - Abdomen soft Organomegaly: No organomegaly - Back Back: Normal, Nontender - Extremities General upper extremity: Normal inspection General lower extremity: Normal inspection. No: Edema - Neurological Neuro grossly intact: Yes Cognition: Normal Orientation: AAOx4 [place] Coma Scale Eye Opening: Spontaneous [place] Coma Scale Verbal: Oriented [place] Coma Scale Motor: Obeys Commands Srinivasan Coma Scale Total: 15 Speech: Normal Motor strength normal: LUE, RUE, LLE, RLE Sensory: Normal - Psychological Associated symptoms: Normal affect, Normal mood - Skin Skin Temperature: Warm Skin Moisture: Dry Skin Color: Normal Course - Re-evaluation Re-evalutation: 02/09/20 03:17 MDM 24 year old male concerned over a possible internal hemmorhoid. No fever. No abdominal pain. - Vital Signs Vital signs: Temp Pulse Resp BP Pulse Ox 98.2 F 46 L 18 117/55 L 95 02/09/20 02:21 02/09/20 02:21 02/09/20 02:21 02/09/20 02:21 02/09/20 02:21 Discharge - Discharge Clinical Impression: Anxiety about health Condition: Stable Disposition: HOME, SELF-CARE Instructions: Antispasmodics ([facility]) Additional Instructions: Clear liquids for 24 hours. Use hydrocortisone cream to your anus as needed for pain. Return here for abdominal pain, fever or other problems or any other concerns. I personally performed the services described in the documentation, reviewed and edited the documentation which was dictated to the scribe in my presence, and it accurately records my words and actions.
[2020-02-09 03:45] VITALS: BP 104/68
== END 2020-02-09 04:02 | disposition home or self-care (01) ==
LOC: ER 22:20
DX: F41.9 Anxiety disorder, unspecified (principal); K64.8 Other hemorrhoids; K59.00 Constipation, unspecified; R10.9 Unspecified abdominal pain; F17.210 Nicotine dependence, cigarettes, uncomplicated; F12.10 Cannabis abuse, uncomplicated; R56.9 Unspecified convulsions; F31.9 Bipolar disorder, unspecified; Z79.899 Other long term (current) drug therapy
CPT/HCPCS: 99284; 74018; A9270

== ENCOUNTER 2020-07-26 18:42 | Emergency (ER) | payer MEDICARE, MEDICAID ==
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
[2020-07-26 20:09] LABS: ABSOLUTE BASOPHILS # (AUTO) 0.1 10^3/uL (0.0-0.2); ABSOLUTE EOSINOPHILS # (AUTO) 0.4 10^3/uL (0.0-0.6); ABSOLUTE MONOCYTES (AUTO) 0.8 10^3/uL (0.1-1.4); BASOPHILS % (AUTO) 0.8 % (0-2); EOSINOPHILS % (AUTO) 3.9 % (0-6); HEMATOCRIT 46.3 % (37.9-51.0); LYMPHOCYTES % (AUTO) 21.8 % (13-45); MEAN CORPUSCULAR HEMOGLOBIN 31.1 pg (27.0-33.4); MEAN CORPUSCULAR HGB CONC 34.5 g/dL (32.0-36.0); MEAN CORPUSCULAR VOLUME 90 fl (80-97); MONOCYTES % (AUTO) 8.9 % (3-13); PLATELET COUNT 152 10^3/uL (150-450); RED BLOOD COUNT 5.13 10^6/uL (4.35-5.55); RED CELL DISTRIBUTION WIDTH 13.5 % (11.5-14.0); SEGMENTED NEUTROPHILS % (AUTO) 64.6 % (42-78); TOTAL CELLS COUNTED % (AUTO) 100 %; WHITE BLOOD COUNT 9.3 10^3/uL (4.0-10.5)
[2020-07-26 20:25] LABS: ALBUMIN 4.8 g/dL (3.5-5.0); ALKALINE PHOSPHATASE 84 U/L (38-126); ANION GAP 10 (5-19); ASPARTATE AMINO TRANSFERASE 24 U/L (17-59); BILIRUBIN,DIRECT 0.1 mg/dL (0.0-0.4); BILIRUBIN,TOTAL 0.7 mg/dL (0.2-1.3); BLOOD UREA NITROGEN 12 mg/dL (7-20); CARBON DIOXIDE 26 mmol/L (22-30); CHLORIDE 102 mmol/L (98-107); GLUCOSE 90 mg/dL (75-110); POTASSIUM 4.3 mmol/L (3.6-5.0); TOTAL PROTEIN 7.8 g/dL (6.3-8.2)
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
[2020-07-26 20:28] LABS: ACETAMINOPHEN < 10 ug/mL (10-30); ALCOHOL < 10 mg/dL (NONE DETECTED); SALICYLATE < 1.0 mg/dL (2.0-20.0)
[2020-07-26 20:33] LABS: APPEARANCE,URINE CLEAR; BILIRUBIN,URINE NEGATIVE (NEGATIVE); COLOR,URINE YELLOW; GLUCOSE, URINE NEGATIVE (NEGATIVE); KETONES,URINE NEGATIVE (NEGATIVE); LEUKOCYTE ESTERASE,URINE NEGATIVE (NEGATIVE); NITRITE,URINE NEGATIVE (NEGATIVE); PROTEIN,URINE NEGATIVE (NEGATIVE); URINE SPECIFIC GRAVITY 1.018
[2020-07-26 20:53] LABS: URINE AMPHETAMINES SCREEN NEGATIVE; URINE BARBITURATES SCREEN NEGATIVE; URINE BENZODIAZEPINES SCREEN NEGATIVE; URINE COCAINE SCREEN NEGATIVE; URINE MARIJUANA (THC) SCREEN NEGATIVE; URINE METHADONE SCREEN NEGATIVE; URINE PHENCYCLIDINE SCREEN NEGATIVE
[2020-07-27 13:41] VITALS: BP 110/62
--- NOTE | 2020-07-27 14:15 | PSYCHOLOGICAL NOTE ---
Psych Note - Psych Note Date seen by psych provider: 07/27/20 Time seen by psych provider: 11:10 Psych Note: Reason for Consult: passive suicidal ideation [phone] Patient is a 25 year old male who was admitted to the ED via voluntarily for suicidal ideations. Patient reports he has been experiencing suicidal ideations that come and go. He denies current suicidal ideation, plan, and intent. He denies homicidal ideation, plan, and intent. He reports living with his best friend, who is considers to be a sister, her family, and another friend. Patient reports he has been un-medicated for 2-3 months. He states he was going to [facility] for medications, he cannot recall what ones, and moved to [place] for work. He reports he moved back and has still not been taking medications. He states, I have not made it a priority. He states he stopped taking medications because he was feeling stable and not depressed. Patient reports he has a history of multiple inpatient hospitalizations with his most recent being in [place], [place], several months ago. Patient reports attempting suicidal in the past many times via cutting and hangings. He continues to deny current suicidal ideation, plan, and intent. Patient was alert and oriented to self, person, place, time and situation. Mood was euphoric with congruent affect. He denies current suicidal ideation, plan, and intent. He denies homicidal ideation, plan, and intent. Patient did not appear to be responding to internal stimuli as evidenced by fair eye contact and answering questions appropriately when addressed. Thought processes are linear and organized. Conversational speech was within normal limits for rate, tone and prosody. Intellectual abilities are estimated to be average. Insight, judgment and impulse control were fair as evidenced by asking his friend/sister for help instead of acting on suicidal thoughts or engaging in self-harm. Patient engages appropriately. He demonstrates future forward goal oriented thinking as he talks about starting his new job on 07/31/2020 with [employer] where he will work with [employer] and [employer]. He states he also plans to follow up with [facility] for medication management. Clinical Presentation: passive suicidal ideations IVC Criteria per [place] GS 122C Dangerous to others Within the relevant past the individual No has inflicted or attempted to inflict or threatened to inflict serious bodily harm on another AND No that there is a reasonable probability that this conduct will be repeated. OR No has acted in such a way as to create a substantial risk of serious bodily harm to another AND No that there is a reasonable probability that this conduct will be repeated. OR No has engaged in extreme destruction of property AND NO that there is a reasonable probability that this conduct will be repeated. Previous episodes of dangerousness to others, when applicable, may be considered when determining reasonable probability of future dangerous conduct. Clear, cogent, and convincing evidence that an individual has committed a homicide in the relevant past is prima facie evidence of dangerousness to others. Dangerous to self Within the relevant past the individual has done any of the following: acted in such a way as to show ALL of the following: No The individual would be unable without care, supervision, and the continued assistance of others not otherwise available, to exercise self- control, judgment, and discretion in the conduct of the individual's daily responsibilities and social relations or to satisfy the individual's need for nourishment, personal or medical care, group home, or self-protection and safety. AND No There is a reasonable probability of the individual suffering serious physical debilitation within the near future unless adequate treatment is given. A showing of behavior that is grossly irrational, of actions that the individual is unable to control, of behavior that is grossly inappropriate to the situation, or of other evidence of severely impaired insight and judgment shall create a prima facie inference that the individual is unable to care for himself or herself. OR Yes has attempted suicide or threatened suicide Patient was admitted to the ED for passive SI AND No that there is a reasonable probability of suicide unless adequate treatment is given Patient denies current suicidal ideation, plan, and intent. He reports future forward goal oriented thinking as he talks about being excited to start new job and following up with [facility] for medication management. OR No has mutilated himself or herself or attempted to mutilate himself or herself AND No that there is a reasonable probability of serious self-mutilation unless adequate treatment is given. NOTE: Previous episodes of dangerousness to self, when applicable, may be considered when determining reasonable probability of physical debilitation, suicide, or self-mutilation. Impression\plan: Patient is cleared from psychiatric services. He does not met criteria for IVC. Patient is well known to the ED. He was admitted for passive suicidal ideation with no plan. Upon assessment, he denies suicidal ideation, plan, and intent. States his thoughts of not being here come and go. He reports he used to get medications from [facility], but stopped because he felt better. Patient has a history of medication non-compliance. He acknowledges he has not make it a priority to go back to [facility] to start medications again. He has a positive support system with friends that he considers to be family in which he lives with. Patient demonstrates future forward goal oriented thinking as he talking about starting his new job on 07/31/2020 and following up with [facility] for medication management. Patient was given community resource sheet for outpatient services and mobile crisis, [facility] and [facility]. He was highly recommended to follow up with outpatient provider and re-start psychiatric medications. Dr. Navarrete was consulted to care management of this patient; attending physicians in agreement with recommendations and disposition.
--- NOTE | 2020-07-27 18:51 | EKG REPORT ---
SEVERITY:- NORMAL ECG - SINUS RHYTHM : Confirmed by: Anais Pastor 27-Jul-2020 18:50:44
== END 2020-07-27 13:35 | disposition home or self-care (01) ==
LOC: ER 18:42
DX: F31.31 Bipolar disorder, current episode depressed, mild (principal); R45.851 Suicidal ideations; S51.811A Laceration without foreign body of right forearm, initial encounter; X78.9XXA Intentional self-harm by unspecified sharp object, initial encounter; Y92.231 Patient bathroom in hospital as the place of occurrence of the external cause
CPT/HCPCS: 36415; 80053; 80307; 81001; 85025; 93005; 93010; 99285

== ENCOUNTER 2020-08-12 21:37 | Emergency (ER) | payer MEDICARE, MEDICAID ==
--- NOTE | 2020-08-12 23:04 | ER Document Report ---
ED Medical Screen (RME) - General Chief Complaint: Rectal Pain Stated Complaint: RECTAL PAIN Time Seen by Provider: 08/12/20 22:58 Mode of Arrival: Ambulatory Information source: Patient Notes: HPI; 25-year-old male presents to the emergency room with persistent worsening rectal pain for the past 4 days. States is gotten worse since yesterday. Worse after bowel movements. Denies any bleeding. Denies any hard stools. Denies any rectal trauma or intercourse. Taking ibuprofen without relief. Patient states he does have a history of hemorrhoids but has not been able to palpate any hemorrhoids. PE: Alert and oriented x3. Lungs: Clear to auscultation without rales, rhonchi, wheezes. Heart: Regular rate rhythm without murmurs, rubs, gallops. I have greeted and performed a rapid initial assessment of this patient. A comprehensive ED assessment and evaluation of the patient, analysis of test results and completion of the medical decision making process will be conducted by additional ED providers. I have specifically instructed the patient or family members with the patient to immediately return to any nursing staff should anything change in the patient's condition or with their chief complaint. TRAVEL OUTSIDE OF THE [place] IN LAST 30 DAYS: No - Related Data Allergies/Adverse Reactions: No Known Allergies Allergy (Verified 08/12/20 22:56) Past Medical History - Social History Frequency of alcohol use: None Drug Abuse: None Neurological Medical History: Reports: Hx Seizures Renal/ Medical History: Denies: Hx Peritoneal Dialysis Musculoskeltal Medical History: Reports Hx Arthritis Psychiatric Medical History: Reports: Hx Anxiety, Hx Attention Deficit Hyperactivity Disorder, Hx Bipolar Disorder, Hx Depression, Hx Obsessive Compulsive Disorder, Hx Post Traumatic Stress Disorder, Hx Schizophrenia Traumatic Medical History: Reports: Hx Fractures Past Surgical History: Reports: Hx Herniorrhaphy - Immunizations Immunizations up to date: Yes Hx Diphtheria, Pertussis, Tetanus Vaccination: Yes Physical Exam - Vital signs Vitals: Temp Pulse Resp BP Pulse Ox 99.1 F 79 15 107/76 97 08/12/20 22:16 08/12/20 22:16 08/12/20 22:16 08/12/20 22:16 08/12/20 22:16 Course - Vital Signs Vital signs: Temp Pulse Resp BP Pulse Ox 99.1 F 79 15 107/76 97 08/12/20 22:16 08/12/20 22:16 08/12/20 22:16 08/12/20 22:16 08/12/20 22:16
[2020-08-13 00:04] LABS: ABSOLUTE BASOPHILS # (AUTO) 0.1 10^3/uL (0.0-0.2); ABSOLUTE EOSINOPHILS # (AUTO) 0.4 10^3/uL (0.0-0.6); ABSOLUTE LYMPHOCYTES (AUTO) 2.8 10^3/uL (0.5-4.7); ABSOLUTE MONOCYTES (AUTO) 0.8 10^3/uL (0.1-1.4); BASOPHILS % (AUTO) 0.8 % (0-2); EOSINOPHILS % (AUTO) 3.9 % (0-6); HEMATOCRIT 46.5 % (37.9-51.0); HEMOGLOBIN 16.2 g/dL (13.5-17.0); LYMPHOCYTES % (AUTO) 27.5 % (13-45); MEAN CORPUSCULAR HEMOGLOBIN 31.2 pg (27.0-33.4); MEAN CORPUSCULAR HGB CONC 34.8 g/dL (32.0-36.0); MEAN CORPUSCULAR VOLUME 90 fl (80-97); MONOCYTES % (AUTO) 8.4 % (3-13); PLATELET COUNT 147 10^3/uL (150-450); RED BLOOD COUNT 5.19 10^6/uL (4.35-5.55); RED CELL DISTRIBUTION WIDTH 13.2 % (11.5-14.0); SEGMENTED NEUTROPHILS % (AUTO) 59.4 % (42-78); TOTAL CELLS COUNTED % (AUTO) 100 %; WHITE BLOOD COUNT 10.1 10^3/uL (4.0-10.5)
[2020-08-13 00:09] LABS: APPEARANCE,URINE CLEAR; BILIRUBIN,URINE NEGATIVE (NEGATIVE); COLOR,URINE YELLOW; GLUCOSE, URINE NEGATIVE (NEGATIVE); KETONES,URINE NEGATIVE (NEGATIVE); LEUKOCYTE ESTERASE,URINE NEGATIVE (NEGATIVE); NITRITE,URINE NEGATIVE (NEGATIVE); PROTEIN,URINE NEGATIVE (NEGATIVE); URINE SPECIFIC GRAVITY 1.021
[2020-08-13 00:20] LABS: ALBUMIN 4.5 g/dL (3.5-5.0); ALKALINE PHOSPHATASE 80 U/L (38-126); ASPARTATE AMINO TRANSFERASE 44 U/L (17-59); BILIRUBIN,DIRECT 0.1 mg/dL (0.0-0.4); BILIRUBIN,TOTAL 0.6 mg/dL (0.2-1.3); BLOOD UREA NITROGEN 11 mg/dL (7-20); CALCIUM 9.7 mg/dL (8.4-10.2); CHLORIDE 101 mmol/L (98-107); GLUCOSE 93 mg/dL (75-110); POTASSIUM 4.3 mmol/L (3.6-5.0); TOTAL PROTEIN 7.3 g/dL (6.3-8.2)
[2020-08-13 00:25] LABS: CARBON DIOXIDE 32 mmol/L (22-30)
[2020-08-13 00:27] LABS: ANION GAP 4 (5-19)
[2020-08-13 02:16] VITALS: BP 108/70
== END 2020-08-13 04:08 | disposition left against medical advice (07) ==
LOC: ER 21:37
DX: K62.89 Other specified diseases of anus and rectum (principal); Z87.19 Personal history of other diseases of the digestive system; Z53.20 Procedure and treatment not carried out because of patient's decision for unspecified reasons
CPT/HCPCS: 36415; 80053; 81001; 85025; 99281